=== PATIENT | female | born 1945 | race African-American/Black ===

== ENCOUNTER 2016-08-30 12:52 | Inpatient (IN) | payer OTHER, BC ==
[2016-08-30] MEDS ORDERED: ASPIRIN 81 MG CHEWABLE TABLETS PO ONE (13:20)
[2016-08-30] MEDS ORDERED: ASPIRIN 81 MG CHEWABLE TABLETS ONE (13:43)
--- NOTE | 2016-08-30 13:51 | PDOC ---
[id number] No Limitations - History of Present Illness Initial Comments: 08/30/16 13:52 The patient is a 70 year old female, with a significant past medical history of HTN and DM, who presents to the emergency department with intermittent chest pain and constant SOB for 10 days She ranks her pain a 5/10 in pain intensity. She reports her SOB is often provoked when she walks and exerts any activity. She has reports also having RLE pain when she walks or exerts herself. She denies recent fevers, chills, headache or dizziness. She denies recent nausea, vomit, diarrhea or constipation. She denies recent dysuria, frequency, urgency or hematuria. Allergies: NKA Past surgical history: Noncontributory Social history: Nonsmoker. Denies EtOH use and recreational drug use. Primary Care Physician: <Rogeilo Lanier - Last Filed: 08/30/16 13:52> <Yanna Soriano - Last Filed: 09/01/16 11:03> - General Chief Complaint: Chest Pain Stated Complaint: CHEST PAIN, SOB Time Seen by Provider: 08/30/16 13:25 Past History <Rogelio Lanier - Last Filed: 08/30/16 13:52> - Past Medical History Anemia: No Asthma: No Cancer: Yes (LEFT BREAST) Cardiac Disorders: No CVA: No COPD: No CHF: No Dementia: No Diabetes: Yes (type II) GI Disorders: No Disorders: No HTN: Yes Hypercholesterolemia: No Liver Disease: No Seizures: No Thyroid Disease: No - Surgical History Abdominal Surgery: No Appendectomy: No Cardiac Surgery: No Cholecystectomy: No Lung Surgery: No Neurologic Surgery: No Orthopedic Surgery: No - Psycho/Social/Smoking Cessation Hx Anxiety: No Suicidal Ideation: No Smoking Status: No Smoking History: Never smoked Number of Cigarettes Smoked Daily: 0 Hx Alcohol Use: No Drug/Substance Use Hx: No Substance Use Type: None Hx Substance Use Treatment: No <Yanna Soriano - Last Filed: 09/01/16 11:03> - Past Medical History Allergies/Adverse Reactions: Allergies Allergy/AdvReac Type Severity Reaction Status Date / Time No Known Allergies Allergy Verified 08/30/16 13:01 Home Medications: Ambulatory Orders Amlodipine Besylate 10 mg PO DAILY 08/30/16 Insulin Lispro Protamin/Lispro [Humalog Mix 75-25 Kwikpen] 40 unit SQ BIDAC 07/14 Losartan/Hydrochlorothiazide [Losartan-Hctz 100-25 mg Tab] 1 each PO DAILY 08/30 Atorvastatin Ca [Lipitor] 10 mg PO HS tablet 09/01/16 Review of Systems - Review of Systems Able to Perform ROS?: Yes Comments:: 08/30/16 13:52 GENERAL/CONSTITUTIONAL: No fever or chills. No weakness. HEAD, EYES, EARS, NOSE AND THROAT: No change in vision. No ear pain or discharge. No sore throat. CARDIOVASCULAR: +chest pain and shortness of breath. RESPIRATORY: No cough, wheezing, or hemoptysis. GASTROINTESTINAL: No nausea, vomiting, diarrhea or constipation. GENITOURINARY: No dysuria, frequency, or change in urination. MUSCULOSKELETAL: +RLE pain. No joint or muscle swelling or pain. No neck or back pain. SKIN: No rash NEUROLOGIC: No headache, vertigo, loss of consciousness, or change in strength/ sensation. ENDOCRINE: No increased thirst. No abnormal weight change. HEMATOLOGIC/LYMPHATIC: No anemia, easy bleeding, or history of blood clots. ALLERGIC/IMMUNOLOGIC: No hives or skin allergy. <Rogelio Lanier - Last Filed: 08/30/16 13:52> *Physical Exam - Vital Signs Last Vital Signs Temp Pulse Resp BP Pulse Ox 98.1 F 92 H 19 151/71 100 08/30/16 13:01 08/30/16 13:01 08/30/16 13:01 08/30/16 13:01 08/30/16 13:01 - Physical Exam Comments: 08/30/16 13:53 GENERAL: Awake, alert, and fully oriented, in no acute distress HEAD: No signs of trauma EYES: PERRLA, EOMI, sclera anicteric, conjunctiva clear ENT: Auricles normal inspection, hearing grossly normal, nares patent, oropharynx clear without exudates. Moist mucosa NECK: Normal ROM, supple, no lymphadenopathy, JVD, or masses LUNGS: Breath sounds equal, clear to auscultation bilaterally. No wheezes, and no crackles HEART: Regular rate and rhythm, normal S1 and S2, no murmurs, rubs or gallops ABDOMEN: Soft, nontender, normoactive bowel sounds. No guarding, no rebound. No masses EXTREMITIES: Normal range of motion, no edema. No clubbing or cyanosis. No cords, erythema, or tenderness NEUROLOGICAL: Cranial nerves II through XII grossly intact. Normal speech, normal gait SKIN: Warm, Dry, normal turgor, no rashes or lesions noted. <Rogelio Lanier - Last Filed: 08/30/16 13:52> - Vital Signs Last Vital Signs Temp Pulse Resp BP Pulse Ox 98.1 F 92 H 19 151/71 100 08/30/16 13:01 08/30/16 13:01 08/30/16 13:01 08/30/16 13:01 08/30/16 13:01 <Yanna Soriano - Last Filed: 09/01/16 11:03> ED Treatment Course - LABORATORY CBC & Chemistry Diagram: 08/31/16 13:25 08/31/16 13:25 <Yanna Soriano - Last Filed: 09/01/16 11:03> Medical Decision Making - Medical Decision Making Case d/w Dr. Cruz. Patient with RLE tenderness. I will obtain duplex to r /o DVT. With the SOB, PE is also a possibility. D-dimer is elevated. Will admit for further workup. <Yanna Soriano - Last Filed: 09/01/16 11:03> *DC/Admit/Observation/Transfer - Attestations Scribe Attestion: 08/30/16 13:53 Documentation prepared by Rogelio Lanier, acting as medical customer service representative for Yanna Soriano MD. <Rogelio Lanier - Last Filed: 08/30/16 13:52> - Discharge Dispostion Admit: Yes <Yanna Soriano - Last Filed: 09/01/16 11:03> Diagnosis at time of Disposition: Shortness of breath - Discharge Dispostion Condition at time of disposition: Stable - Referrals
[2016-08-30 14:06] LABS: BASOPHIL 0.9 % (0-2.0); EOSINOPHIL 2.8 % (0-4.5); MCHC 32.8 g/dl (32.0-36.0); MEAN CELL VOLUME 82.2 fl (80-96); MEAN PLT VOLUME 9.3 fl (7.5-11.1); NEUTROPHILS 51.5 % (42.8-82.8); PLATELET COUNT 217 K/MM3 (134-434); RDW 13.8 % (11.6-15.6); WHITE BLOOD COUNT 5.5 K/mm3 (4.0-10.0)
[2016-08-30 14:32] LABS: INR 1.22 (0.82-1.09); PROTHROMBIN TIME (PATIENT) 13.5 SEC (9.98-11.88)
[2016-08-30 14:43] LABS: ALBUMIN 4.2 g/dl (3.4-5.0); ANION GAP 9 (8-16); BILIRUBIN,TOTAL 0.3 mg/dL (0.2-1.0); CALCIUM 10.5 mg/dL (8.5-10.1); CO2 30 mmol/L (21-32); CREATININE 1.1 mg/dL (0.55-1.02); GLUCOSE,RANDOM 81 mg/dL (74-106); SGOT/AST 11 U/L (15-37); SGPT/ALT 20 U/L (12-78); TOT PROT 7.8 g/dl (6.4-8.2)
[2016-08-30 14:46] LABS: ALK PHOS 83 U/L (45-117); TROPONIN I < 0.02 ng/ml (0.00-0.05)
[2016-08-30] MEDS ORDERED: POTASSIUM CHLORIDE TABS 20 MEQ TABLET.ER (FP) PO ONE (15:45)
[2016-08-30] MEDS ORDERED: POTASSIUM CHLORIDE TABS 10 MEQ TABLET.ER (FP) ONE (15:47)
[2016-08-30] MEDS ORDERED: SODIUM CHLORIDE 1,000 ML IV STA (15:58)
--- NOTE | 2016-08-30 16:11 | CON.CARD ---
Consult Consult Specialty:: Cardiology Referred by:: Dr. Cruz Reason for Consultation:: Chest pain, sob - History of Present Illness Chief Complaint: chest pain, sob History of Present Illness: 70 year old woman with a history of HTN, DMII, HLD, breast CA, with c/o 10d history of chest pain and sob. Pt. states that for the past 10 days she has noted sob and substernal, sharp chest pain that occurs mainly with walking and with singing in the choir and with deep inspiration. She also notes RLE calf pain over the same period. Pt seen and examined in the ER in nad. Currently feeling well while sitting at rest. no current chest pain or sob. No LE edema. No lightheadedness dizziness, syncope, near syncope. No pnd or orthopnea. - History Source History Provided By: Patient, Family Member, Medical Record Limitations to Obtaining History: No Limitations - Past Medical History Cardio/Vascular: Yes: HTN, Hyperlipdemia Heme/Onc: Yes: Cancer Endocrine: Yes: Diabetes Mellitus - Alcohol/Substance Use Hx Alcohol Use: No - Smoking History Smoking history: Never smoked Aproximately how many cigarettes per day: 0 - Social History Usual Living Arrangement: With Spouse ADL: Independent History of Recent Travel: No Home Medications - Allergies Allergies/Adverse Reactions: Allergies Allergy/AdvReac Type Severity Reaction Status Date / Time No Known Allergies Allergy Verified 08/30/16 13:01 - Home Medications Home Medications: Ambulatory Orders Amlodipine Besylate 10 mg PO DAILY 08/30/16 Insulin Lispro Protamin/Lispro [Humalog Mix 75-25 Kwikpen] 0 unit SQ BID Losartan/Hydrochlorothiazide [Losartan-Hctz 100-25 mg Tab] 1 each PO DAILY 08/30 Family Disease History - Family Disease History Family History: Denies Review of Systems - Review of Systems Constitutional: denies: No Symptoms, Chills, Diaphoresis, Fever, Lethargy, Loss of Appetite, Malaise, Night Sweats, Unintentional Wgt. Loss, Weakness, Other Eyes: denies: No Symptoms, Blind Spots, Blurred Vision, Double Vision, Eye Pain , Floaters, Photophobia, Recent Change in Vision, Other HENT: denies: No Symptoms, Difficult Swallowing, Ear Discharge, Ear Pain, Epistaxis, Gingival Bleeding, Hearing Loss, Mouth Swelling, Nasal Congestion, Ocular Prosthesis, Throat Pain, Toothache, Ringing in Ears, Other Neck: denies: No Symptoms, Decreased ROM, Lumps, Pain on Movement, Stiffness, Swollen Glands, Tenderness, Other Cardiovascular: reports: Chest Pain, Shortness of Breath. denies: No Symptoms, Edema, Palpitations, Other Respiratory: reports: Exercise Intolerance, SOB, SOB on Exertion. denies: No Symptoms, Cough, Hemoptysis, Orthopnea, PND, Snoring, Wheezing, Other Gastrointestinal: denies: No Symptoms, Abdominal Pain, Bloating, Constipation, Diarrhea, Dysphagia, Indigestion, Melena, Nausea, Rectal Bleeding, Vomiting, Vomiting Blood, Other Genitourinary: denies: No Symptoms, Burning, Discharge, Dysuria, Flank Pain, Frequency, Hematuria, Incontinence, Lesions, Menses, Pain, Testicular Mass, Testicular Pain, Testicular Swelling, Urgency, Vaginal Bleeding, Other Breasts: denies: No Symptoms Reported, See HPI, Breast Implants, Discharge from Nipple, Lumps, Pain, Skin Changes, Other Musculoskeletal: reports: Extremity Pain. denies: No Symptoms, Back Pain, Crepitus, Decreased ROM, Joint Pain, Joint Swelling, Muscle Pain, Muscle Cramps , Muscle Weakness, Other Integumentary: denies: No Symptoms, Blister, Bruising, Change in Color, Eczema, Erythema, Incision, Lesions, Lump, Pallor, Pruritis, Rash, Wound, Other Neurological: denies: No Symptoms, Change in LOC, Change in Speech, Confusion, Dizziness, Headache, Incoordination, Numbness, Parasthesia, Pre-Existing Deficit , Seizure, Syncope, Tremors, Unsteady Gait, Weakness, Other Endocrine: denies: No Symptoms, Excessive Sweating, Flushing, Increased Hunger, Increased Thirst, Intolerance to Cold, Intolerance to Heat, Unexplained Weight Gain, Unexplained Weight Loss, Other Hematology/Lymphatic: denies: No Symptoms, Easily Bruised, Excessive Bleeding, Swollen Glands, Other Psychiatric: denies: No Symptoms, Altered Sleep Pattern, Anxiety, Depression, Hallucinations, Panic, Paranoia, Suicidal, Other - Risk Factors Known Risk Factors: Yes: Diabetes Mellitus, Hypercholesterolemia, Hypertension Vital Signs: Vital Signs Temperature 98.1 F 08/30/16 13:01 Pulse Rate 69 08/30/16 15:44 Respiratory Rate 18 08/30/16 15:44 Blood Pressure 126/59 08/30/16 15:44 O2 Sat by Pulse Oximetry (%) 98 08/30/16 15:44 Constitutional: Yes: Well Nourished, No Distress, Calm Eyes: Yes: WNL, Conjunctiva Clear, EOM Intact, PERRL HENT: Yes: WNL, Atraumatic, Normocephalic Neck: Yes: WNL, Supple, Trachea Midline Respiratory: Yes: WNL, Regular, CTA Bilaterally. No: Rales, Rhonchi, Wheezes Gastrointestinal: Yes: WNL, Normal Bowel Sounds, Soft. No: Distention, Tenderness Renal/: Yes: WNL Cardiovascular: Yes: WNL, Regular Rate and Rhythm. No: Bradycardia, Tachycardia , Pulse Irregular, Gallop, Rub, Varicosities JVD: No Carotid Bruit: No PMI: Non-Displaced Heart Sounds: Yes: S1, S2. No: Split S2, S3, S4, Clicks, Gallop, Rub, Bruit Murmur: No: Systolic Murmur, Diastolic Murmur Musculoskeletal: Yes: WNL Extremities: Yes: WNL Edema: No Peripheral Pulses WNL: Yes Peripheral Pulses: 2+ Left Doralis Pedis, 2+ Right Dorsalis Pedis Integumentary: Yes: WNL Neurological: Yes: WNL, Alert, Oriented, Cran Nerves II-XII Intact ...Motor Strength: WNL Psychiatric: Yes: WNL, Alert, Oriented - Other Data Labs, Other Data: INR, PTT INR 1.22 (0.82-1.09) H 08/30/16 13:04 ekg- nsr 87bpm, septal infarct, poor R progression, nonspecific ST abnl Echo: Pending Imaging - Results Chest X-ray: Report Reviewed, Image Reviewed EKG: Report Reviewed, Image Reviewed Other: Report Reviewed, Image Reviewed Problem List - Problems (1) Shortness of breath Code(s): R06.02 - SHORTNESS OF BREATH (2) Chest pain Code(s): R07.9 - CHEST PAIN, UNSPECIFIED (3) HTN (hypertension) Code(s): I10 - ESSENTIAL (PRIMARY) HYPERTENSION (4) HLD (hyperlipidemia) Code(s): E78.5 - HYPERLIPIDEMIA, UNSPECIFIED (5) Diabetes mellitus type 2 with complications Code(s): E11.8 - TYPE 2 DIABETES MELLITUS WITH UNSPECIFIED COMPLICATIONS Assessment/Plan 70 year old woman with a history of HTN, DMII, HLD, breast CA, with c/o 10d history of chest pain and sob. Pt. states that for the past 10 days she has noted sob and substernal, sharp chest pain that occurs mainly with walking and with singing in the choir and with deep inspiration. She also notes RLE calf pain over the same period. Chest pain/SOB-with multiple cardiac risk factors, abnormal EKG -r/o ACS, cardiac enzymes wnl x 1, check serial cardiac enzymes and ekgs -telemetry monitoring -CTA chest to rule out PE and doppler LE to rule out DVT to be done today -if no DVT/PE will tentatively plan for nuclear stress test tomorrow provided cardiac enzymes remain wnl -will have low threshold for cardiac catheterization depending on clinical course overnight -plan for echo tomorrow to evaluate LV/RV function and valvular function -start ASA 81mg daily and Plavix -start statin -hold off on heparin for now unless DVT/PE found or if cardiac enzymes trend up HTN-adequately controlled currently -cont losartan/hctz and amlodipine HLD -f/up fasting lipids -statin
--- NOTE | 2016-08-30 16:24 | HP ---
Admitting History and Physical - Admission Chief Complaint: 70 y.o F was admitted to [facility] with anterior CP, EXErtional and resting dyspnea and generalized weakness 1-1 1/2 weeks duration. History of Present Illness: DM type 2 not well controlled HTN MNG HLD OA Breast mass/biopsy History Source: Patient, Medical Record Limitations to Obtaining History: No Limitations - Past Medical History [employer]: Yes: Peripheral Neuropathy Cardiovascular: Yes: HTN, Hyperlipdemia. No: AFIB, CHF, Deep Vein Thrombosis Pulmonary: No: Asthma, Bronchitis, O2 Dependent, Pulmonary Fibrosis, Sleep Apnea Gastrointestinal: No: Ascites, Cancer, Constipation, GI Bleed, Peptic Ulcer Disease Hepatobiliary: No: Cirrhosis, Cholelithiasis, Cholecystitis Renal/: No: Renal Failure, Renal Inusuff, Cancer Heme/Onc: Yes: Cancer Infectious Disease: No: AIDS, C-Diff, Herpes Zoster, HIV, MRSA, STD's, Tuberculosis, VREF, Other Psych: No: Addictions, Anxiety, Bipolar, Depression, Panic, Psychosis, Schizophrenia, Other Musculoskeletal: No: Bursitis, Chronic low back pain, Hemiparesis, Hemiplegia, Osteoarthritis, Paraplegia, Other Rheumatology: No: Fibromyalgia, Gout, Lupus, Rheumatoid Arthritis, Sarcoidosis, Vasculitis, Other Endocrine: Yes: Diabetes Mellitus. No: Sevier's Disease, Pl[place]'s Disease, Diabetes Insipidus, Hyperparathyroidism, Hyperthyroidism, Hypothyroidism, Osteopenia, SIADH, Other Dermatology: No: Basal Cell, Cellulitis, Eczema, Melanoma, Psoriasis, Squamous Cell, Other - Past Surgical History Past Surgical History: Yes: Breast Biopsy. No: AAA Repair, AICD, AV Fistula/ Graft, Bypass - Smoking History Smoking history: Never smoked Aproximately how many cigarettes per day: 0 - Alcohol/Substance Use Hx Alcohol Use: No - Social History ADL: Independent History of Recent Travel: No Home Medications - Allergies Allergies/Adverse Reactions: Allergies Allergy/AdvReac Type Severity Reaction Status Date / Time No Known Allergies Allergy Verified 08/30/16 13:01 - Home Medications Home Medications: Ambulatory Orders Amlodipine Besylate 10 mg PO DAILY 08/30/16 Insulin Lispro Protamin/Lispro [Humalog Mix 75-25 Kwikpen] 0 unit SQ BID Losartan/Hydrochlorothiazide [Losartan-Hctz 100-25 mg Tab] 1 each PO DAILY 08/30 Family Disease History - Family Disease History Family Disease History: Diabetes: Sister, Heart Disease: Sister Review of Systems - Review of Systems Constitutional: reports: Weakness. denies: Fever, Lethargy, Unintentional Wgt. Loss Eyes: denies: No Symptoms, Blind Spots, Photophobia HENT: denies: Difficult Swallowing, Ear Discharge, Gingival Bleeding Neck: denies: Decreased ROM, Lumps, Pain on Movement, Stiffness Cardiovascular: reports: Chest Pain, Shortness of Breath Respiratory: reports: Exercise Intolerance, SOB, SOB on Exertion. denies: Wheezing Gastrointestinal: denies: Abdominal Pain, Bloating, Indigestion Genitourinary: denies: Burning, Discharge Musculoskeletal: reports: Other (Big toe pain after injury). denies: Back Pain Neurological: reports: Confusion. denies: Change in LOC, Change in Speech, Seizure, Syncope, Tremors, Unsteady Gait Hematology/Lymphatic: reports: No Symptoms Psychiatric: reports: No Symptoms Physical Examination Vital Signs: Vital Signs Temperature 98.1 F 08/30/16 13:01 Pulse Rate 69 08/30/16 15:44 Respiratory Rate 18 08/30/16 15:44 Blood Pressure 126/59 08/30/16 15:44 O2 Sat by Pulse Oximetry (%) 98 08/30/16 15:44 Constitutional: Yes: Anxious, Mild Distress Eyes: Yes: Conjunctiva Clear, EOM Intact HENT: Yes: Atraumatic, Normocephalic. No: Drooling, Epistaxis Neck: Yes: Supple, Trachea Midline Respiratory: Yes: Regular, CTA Bilaterally. No: Accessory Muscle Use, Bradypnea Gastrointestinal: Yes: Normal Bowel Sounds, Soft. No: Abdomen, Obese, Ascites, Distention, Palpable Mass, Pulsatile Mass, Splenomegaly, Tenderness, Rebound, Vomiting ...Rectal Exam: Yes: Deferred Renal/: No: Anuria, Bladder Distention, CVA Tenderness - Left Musculoskeletal: No: Back Pain, Joint Stiffness, Joint Swelling Extremities: No: Amputation, Calf Tenderness, Cold, Cyanosis Edema: No Peripheral Pulses WNL: Yes Integumentary: Yes: WNL Neurological: Yes: Alert, Oriented, Cran Nerves II-XII Intact. No: Aphasia, Weakness ...Motor Strength: WNL Psychiatric: Yes: Alert, Oriented. No: Agitated, Suicidal Ideation Labs: Laboratory Results - last 24 hr 08/30/16 08/30/16 08/30/16 13:04 13:04 13:04 WBC 5.5 D RBC 4.79 Hgb 12.9 Hct 39.4 MCV 82.2 MCHC 32.8 RDW 13.8 Plt Count 217 MPV 9.3 Neutrophils % 51.5 Lymphocytes % 37.3 Monocytes % 7.5 Eosinophils % 2.8 Basophils % 0.9 INR 1.22 H D-Dimer Sodium 140 Potassium 3.1 L Chloride 101 Carbon Dioxide 30 Anion Gap 9 BUN 27 H Creatinine 1.1 H Creat Clearance w eGFR 49.25 Random Glucose 81 D Calcium 10.5 H Magnesium 2.0 Total Bilirubin 0.3 AST 11 L ALT 20 Alkaline Phosphatase 83 D Creatine Kinase 150 CK-MB (CK-2) 2.442 Troponin I < 0.02 Total Protein 7.8 Albumin 4.2 08/30/16 13:59 WBC RBC Hgb Hct MCV MCHC RDW Plt Count MPV Neutrophils % Lymphocytes % Monocytes % Eosinophils % Basophils % INR D-Dimer 388 H Sodium Potassium Chloride Carbon Dioxide Anion Gap BUN Creatinine Creat Clearance w eGFR Random Glucose Calcium Magnesium Total Bilirubin AST ALT Alkaline Phosphatase Creatine Kinase CK-MB (CK-2) Troponin I Total Protein Albumin Imaging - Results Chest X-ray: Report Reviewed Problem List - Problems (1) Chest pain Assessment/Plan: ATTILA. EST if enzymes negative. Cardiology Code(s): R07.9 - CHEST PAIN, UNSPECIFIED Qualifiers: Ischemic chest pain type: other angina pectoris type (2) Diabetes mellitus type 2 with complications Assessment/Plan: Hold Metformin due to CT angio. Lakhwinder NovologJeannette Code(s): E11.8 - TYPE 2 DIABETES MELLITUS WITH UNSPECIFIED COMPLICATIONS (3) HLD (hyperlipidemia) Assessment/Plan: Re-start Lipitor and observe Code(s): E78.5 - HYPERLIPIDEMIA, UNSPECIFIED Qualifiers: Hyperlipidemia type: mixed hyperlipidemia Qualified Code(s): E78.2 - Mixed hyperlipidemia (4) HTN (hypertension) Code(s): I10 - ESSENTIAL (PRIMARY) HYPERTENSION Qualifiers: Hypertension type: essential hypertension Qualified Code(s): I10 - Essential (primary) hypertension (5) Shortness of breath Assessment/Plan: R/O PE Elevated D-Dimers CT angio LE venous Dupplex Code(s): R06.02 - SHORTNESS OF BREATH (6) Hypokalemia due to loss of potassium Assessment/Plan: Relete K and follow K Code(s): E87.6 - HYPOKALEMIA
[2016-08-30 18:10] LABS: TROPONIN I < 0.02 ng/ml (0.00-0.05)
[2016-08-30] MEDS: INSULIN SLIDING SCALE (NOVOLOG) 1 VIAL SQ SCH ×2 (20:50→21:16)
[2016-08-30] MEDS: INSULIN DETEMIR 100 UNITS/ML MDV SQ SCH (21:00)
[2016-08-30] MEDS: ATORVASTATIN CA 10 MG TABLET (FP) PO SCH (21:03)
[2016-08-30 22:40] LABS: TROPONIN I < 0.02 ng/ml (0.00-0.05)
[2016-08-30 23:17] VITALS: BMI 24.0
[2016-08-31] MEDS: INSULIN SLIDING SCALE (NOVOLOG) 1 VIAL SQ SCH ×4 (06:02→21:38)
[2016-08-31] MEDS: sitaGLIPtin PHOSPHATE 50 MG TABLET PO SCH (06:02)
--- NOTE | 2016-08-31 08:00 | PN ---
Progress Note (short form) - Note Progress Note: No chest pain now. Comfortable in bed. ECHO in progress-noted. CT angio chest-no PE LE venous dupplex-no DVT Vital Signs Temp 98.2 F 08/31/16 06:00 Pulse 70 08/31/16 06:00 Resp 18 08/31/16 06:00 BP 121/68 08/31/16 06:00 Pulse Ox 98 08/30/16 20:05 Intake & Output 08/30/16 08/30/16 08/31/16 11:59 23:59 11:59 Intake Total 1130 Balance 1130 Weight 144 lb 8 oz Intake: IV 1010 Normal Saline - 1,000 ml 1000 @ 1000 mls/hr IV ASDIR STA Rx#:[id number] rac 18 08/30/2016 10 Oral 120 Other: Voiding Method Toilet # Unmeasured Voids Void 2 1 Height 5 ft 5 in Body Mass Index (BMI) 24.0 Weight Measurement Method Standing Scale Weight Measurement Method Est/Stated by Patient Awake, alert, NAD Neck-supple, no JVD, no bruits Lungs are clear. Heart S1S2 regular- no RMG Abdomen soft, nt, no HSM Ext-no CCE Laboratory Results - last 24 hr 08/30/16 08/30/16 08/30/16 13:04 13:04 13:04 WBC 5.5 D RBC 4.79 Hgb 12.9 Hct 39.4 MCV 82.2 MCHC 32.8 RDW 13.8 Plt Count 217 MPV 9.3 Neutrophils % 51.5 Lymphocytes % 37.3 Monocytes % 7.5 Eosinophils % 2.8 Basophils % 0.9 INR 1.22 H D-Dimer Sodium 140 Potassium 3.1 L Chloride 101 Carbon Dioxide 30 Anion Gap 9 BUN 27 H Creatinine 1.1 H Creat Clearance w eGFR 49.25 POC Glucometer Random Glucose 81 D Calcium 10.5 H Magnesium 2.0 Total Bilirubin 0.3 AST 11 L ALT 20 Alkaline Phosphatase 83 D Creatine Kinase 150 CK-MB (CK-2) 2.442 Troponin I < 0.02 B-Natriuretic Peptide Total Protein 7.8 Albumin 4.2 Vitamin B12 08/30/16 08/30/16 08/30/16 13:59 16:55 20:57 WBC RBC Hgb Hct MCV MCHC RDW Plt Count MPV Neutrophils % Lymphocytes % Monocytes % Eosinophils % Basophils % INR D-Dimer 388 H Sodium Potassium Chloride Carbon Dioxide Anion Gap BUN Creatinine Creat Clearance w eGFR POC Glucometer 130 Random Glucose Calcium Magnesium Total Bilirubin AST ALT Alkaline Phosphatase Creatine Kinase 121 CK-MB (CK-2) Troponin I < 0.02 B-Natriuretic Peptide 22.98 Total Protein Albumin Vitamin B12 909 08/30/16 08/31/16 21:30 05:26 WBC RBC Hgb Hct MCV MCHC RDW Plt Count MPV Neutrophils % Lymphocytes % Monocytes % Eosinophils % Basophils % INR D-Dimer Sodium Potassium Chloride Carbon Dioxide Anion Gap BUN Creatinine Creat Clearance w eGFR POC Glucometer 82 Random Glucose Calcium Magnesium Total Bilirubin AST ALT Alkaline Phosphatase Creatine Kinase 139 CK-MB (CK-2) Troponin I < 0.02 B-Natriuretic Peptide Total Protein Albumin Vitamin B12 Current Medications Generic Name Dose Route Start Last Admin Trade Name Freq PRN Reason Stop Dose Admin Amlodipine Besylate 10 mg 08/31/16 10:00 Norvasc - PO DAILY [facility] Aspirin 81 mg 08/31/16 10:00 Asa - PO DAILY [facility] Atorvastatin Calcium 10 mg 08/30/16 22:00 08/30/16 21:03 Lipitor - PO 10 mg HS [facility] Administration Clopidogrel Bisulfate 75 mg 08/31/16 10:00 Plavix - PO DAILY [facility] HCTZ/Losartan Potassium 2 tab 08/31/16 10:00 Hyzaar - PO DAILY [facility] Insulin Aspart 1 vial 08/30/16 16:30 08/31/16 06:02 Novolog Vial Sliding Scale - SQ Not Given ACHS [facility] Protocol Insulin Detemir 40 units 08/30/16 22:00 08/30/16 21:00 Levemir Vial SQ Not Given HS [facility] Metoprolol Succinate 25 mg 08/31/16 10:00 Toprol Xl - PO DAILY [facility] Potassium Chloride 20 meq 08/31/16 10:00 K-Dur - PO DAILY [facility] Sitagliptin Phosphate 50 mg 08/31/16 07:00 08/31/16 06:02 Januvia - PO Not Given DAILY@0700 [facility] Current Active Problems Problem Status Diagnosed Chest pain Acute Diabetes mellitus type 2 with complications Acute HLD (hyperlipidemia) Acute HTN (hypertension) Acute Hypokalemia due to loss of potassium Acute Shortness of breath Acute Plan Follow lytes today For EST today Continue ASA/Plavix/BAB/Statins. Telemetry monitoring Problem List - Problems (1) Chest pain Code(s): R07.9 - CHEST PAIN, UNSPECIFIED Qualifiers: Ischemic chest pain type: other angina pectoris type (2) Diabetes mellitus type 2 with complications Code(s): E11.8 - TYPE 2 DIABETES MELLITUS WITH UNSPECIFIED COMPLICATIONS (3) HLD (hyperlipidemia) Code(s): E78.5 - HYPERLIPIDEMIA, UNSPECIFIED Qualifiers: Hyperlipidemia type: mixed hyperlipidemia Qualified Code(s): E78.2 - Mixed hyperlipidemia (4) HTN (hypertension) Code(s): I10 - ESSENTIAL (PRIMARY) HYPERTENSION Qualifiers: Hypertension type: essential hypertension Qualified Code(s): I10 - Essential (primary) hypertension (5) Shortness of breath Code(s): R06.02 - SHORTNESS OF BREATH (6) Hypokalemia due to loss of potassium Code(s): E87.6 - HYPOKALEMIA
[2016-08-31 08:05] LABS: TROPONIN I < 0.02 ng/ml (0.00-0.05)
[2016-08-31] MEDS: ASPIRIN 81 MG CHEWABLE TABLETS PO SCH ×2 (10:38→15:46)
[2016-08-31] MEDS: CLOPIDOGREL BISULFATE 75 MG TABLET (FP) PO SCH ×2 (10:39→15:46)
[2016-08-31] MEDS: amLODIPine BESYLATE 10 MG TABLET (FP) PO SCH ×2 (10:39→15:46)
[2016-08-31] MEDS: METOPROLOL SUCCINATE 25 MG TAB.SR.24H (FP) PO SCH ×2 (10:39→15:46)
[2016-08-31] MEDS: LOSARTAN 50MG/HCTZ 12.5MG 1 TAB (FP) PO SCH (10:39)
[2016-08-31] MEDS: POTASSIUM CHLORIDE TABS 10 MEQ TABLET.ER (FP) PO SCH ×2 (10:39→15:46)
--- NOTE | 2016-08-31 10:58 | PN ---
Progress Note, Physician History of Present Illness: seen and examined today in cardiology dept. awaiting stress test. states she is feeling better but still having intermittent chest pain and sob. no overnight events. no new complaints. - Current Medication List Current Medications: Active Medications Amlodipine Besylate (Norvasc -) 10 mg PO DAILY [facility] Last Admin: 08/31/16 10:39 Dose: Not Given Aspirin (Asa -) 81 mg PO DAILY [facility] Last Admin: 08/31/16 10:38 Dose: Not Given Atorvastatin Calcium (Lipitor -) 10 mg PO HS [facility] Last Admin: 08/30/16 21:03 Dose: 10 mg Clopidogrel Bisulfate (Plavix -) 75 mg PO DAILY [facility] Last Admin: 08/31/16 10:39 Dose: Not Given HCTZ/Losartan Potassium (Hyzaar -) 2 tab PO DAILY [facility] Last Admin: 08/31/16 10:39 Dose: Not Given Insulin Aspart (Novolog Vial Sliding Scale -) 1 vial SQ [facility] PRN Reason: Protocol Last Admin: 08/31/16 06:02 Dose: Not Given Insulin Detemir (Levemir Vial) 40 units SQ [facility] Last Admin: 08/30/16 21:00 Dose: Not Given Metoprolol Succinate (Toprol Xl -) 25 mg PO DAILY [facility] Last Admin: 08/31/16 10:39 Dose: Not Given Potassium Chloride (K-Dur -) 20 meq PO DAILY [facility] Last Admin: 08/31/16 10:39 Dose: Not Given Sitagliptin Phosphate (Januvia -) 50 mg PO DAILY@0700 [facility] Last Admin: 08/31/16 06:02 Dose: Not Given - Objective Vital Signs: Vital Signs Temperature 98.2 F 08/31/16 06:00 Pulse Rate 70 08/31/16 06:00 Respiratory Rate 18 08/31/16 06:00 Blood Pressure 121/68 08/31/16 06:00 O2 Sat by Pulse Oximetry (%) 98 08/30/16 20:05 Constitutional: Yes: Well Nourished, No Distress, Calm Eyes: Yes: WNL, Conjunctiva Clear, EOM Intact, PERRL HENT: Yes: WNL, Atraumatic, Normocephalic Neck: Yes: WNL, Supple, Trachea Midline Cardiovascular: Yes: WNL, Regular Rate and Rhythm. No: Bradycardia, Tachycardia Respiratory: Yes: WNL, Regular, CTA Bilaterally. No: Rales, Rhonchi, Wheezes Gastrointestinal: Yes: WNL, Normal Bowel Sounds, Soft. No: Distention, Tenderness Musculoskeletal: Yes: WNL Extremities: Yes: WNL Edema: No Peripheral Pulses WNL: Yes Peripheral Pulses: Left Doralis Pedis: 2+, Right Dorsalis Pedis: 2+ Integumentary: Yes: WNL Neurological: Yes: Alert, Oriented, Cran Nerves II-XII Intact ...Motor Strength: WNL Psychiatric: Yes: WNL, Alert, Oriented Labs: INR, PTT INR 1.22 (0.82-1.09) H 08/30/16 13:04 - ....Imaging Chest X-ray: Report Reviewed, Image Reviewed EKG: Report Reviewed, Image Reviewed Other: Report Reviewed, Image Reviewed (tele-no events) Problem List - Problems (1) Shortness of breath Code(s): R06.02 - SHORTNESS OF BREATH (2) Chest pain Code(s): R07.9 - CHEST PAIN, UNSPECIFIED Qualifiers: Ischemic chest pain type: other angina pectoris type (3) HTN (hypertension) Code(s): I10 - ESSENTIAL (PRIMARY) HYPERTENSION Qualifiers: Hypertension type: essential hypertension Qualified Code(s): I10 - Essential (primary) hypertension (4) HLD (hyperlipidemia) Code(s): E78.5 - HYPERLIPIDEMIA, UNSPECIFIED Qualifiers: Hyperlipidemia type: mixed hyperlipidemia Qualified Code(s): E78.2 - Mixed hyperlipidemia (5) Diabetes mellitus type 2 with complications Code(s): E11.8 - TYPE 2 DIABETES MELLITUS WITH UNSPECIFIED COMPLICATIONS Assessment/Plan 70 year old woman with a history of HTN, DMII, HLD, breast CA, with c/o 10d history of chest pain and sob. Pt. states that for the past 10 days she has noted sob and substernal, sharp chest pain that occurs mainly with walking and with singing in the choir and with deep inspiration. She also notes RLE calf pain over the same period. Chest pain/SOB-with multiple cardiac risk factors, abnormal EKG -CTA chest showed no evidence of PE -Doppler showed no DVT -cardiac enzymes all wnl -tele showed no sig arrhythmias -nuclear stress test today and echo -will have low threshold for cardiac cath -cont ASA 81mg daily and Plavix -cont statin HTN-adequately controlled currently -cont losartan/hctz and amlodipine and toprol HLD -f/up fasting lipids -cont statin
[2016-08-31 14:06] LABS: BASOPHIL 0.7 % (0-2.0); EOSINOPHIL 2.3 % (0-4.5); MCHC 32.3 g/dl (32.0-36.0); MEAN CELL VOLUME 83.5 fl (80-96); MEAN PLT VOLUME 9.3 fl (7.5-11.1); NEUTROPHILS 57.7 % (42.8-82.8); PLATELET COUNT 198 K/MM3 (134-434); RDW 13.8 % (11.6-15.6)
[2016-08-31 14:33] LABS: ALBUMIN 3.7 g/dl (3.4-5.0); ANION GAP 10 (8-16); CO2 28 mmol/L (21-32); COCKROFT - GAULT 54.9355; GLUCOSE,RANDOM 250 mg/dL (74-106); MAGNESIUM 1.7 mg/dL (1.8-2.4); SGOT/AST 14 U/L (15-37); SGPT/ALT 19 U/L (12-78)
[2016-08-31 14:37] LABS: ALK PHOS 78 U/L (45-117); BILIRUBIN,TOTAL 0.5 mg/dL (0.2-1.0); CHOLESTEROL 249 mg/dL (50-200); TOT PROT 7.1 g/dl (6.4-8.2)
[2016-08-31 15:55] LABS: FREE T4 1.12 ng/dl (0.76-1.46); THYROID STIMULATING HORMONE 0.43 uIU/ml (0.358-3.74)
--- NOTE | 2016-08-31 17:22 | EKG ---
Test Reason : Blood Pressure : / mmHG Vent. Rate : 069 BPM Atrial Rate : 069 BPM P-R Int : 184 ms QRS Dur : 082 ms QT Int : 408 ms P-R-T Axes : 057 004 056 degrees QTc Int : 437 ms NORMAL SINUS RHYTHM SEPTAL INFARCT (CITED ON OR BEFORE 16-AUG-2011) ABNORMAL ECG WHEN COMPARED WITH ECG OF 30-AUG-2016 13:00, NONSPECIFIC T WAVE ABNORMALITY, IMPROVED IN LATERAL LEADS Confirmed by ANTHONY RAHMAN, MERCEDEZ ([id number]) on 08/31/2016 5:22:25 PM Referred By: ABBIE ATKINS Confirmed By:MERCEDEZ CRUZ MD
--- NOTE | 2016-08-31 17:30 | EKG ---
Test Reason : Blood Pressure : / mmHG Vent. Rate : 083 BPM Atrial Rate : 083 BPM P-R Int : 184 ms QRS Dur : 082 ms QT Int : 384 ms P-R-T Axes : 058 -03 055 degrees QTc Int : 451 ms NORMAL SINUS RHYTHM SEPTAL INFARCT (CITED ON OR BEFORE 16-AUG-2011) ABNORMAL ECG WHEN COMPARED WITH ECG OF 16-AUG-2011 20:37, NO SIGNIFICANT CHANGE WAS FOUND Confirmed by ANTHONY RAHMAN, MERCEDEZ ([id number]) on 08/31/2016 5:30:32 PM Referred By: Confirmed By:MERCEDEZ CRUZ MD
[2016-08-31] MEDS ORDERED: INSULIN (NOVOLOG) ASPART 100 UNITS/ML 10ML VIAL ONE (17:34)
[2016-08-31] MEDS: INSULIN DETEMIR 100 UNITS/ML MDV SQ SCH (21:48)
[2016-08-31] MEDS: ATORVASTATIN CA 10 MG TABLET (FP) PO SCH (21:48)
[2016-09-01] MEDS: sitaGLIPtin PHOSPHATE 50 MG TABLET PO SCH (06:55)
[2016-09-01] MEDS: INSULIN SLIDING SCALE (NOVOLOG) 1 VIAL SQ SCH (06:57)
[2016-09-01] MEDS ORDERED: INSULIN (NOVOLOG) ASPART 100 UNITS/ML 10ML VIAL ONE (07:08)
--- NOTE | 2016-09-01 09:16 | PN ---
Progress Note (short form) - Note Progress Note: EST-mild apical ischemia-reversible, EKG-old [place]-septal? CP during EST Pt was discussed with cardiology. Cardiac cath suggested. Pt is being Tx to [facility]. Noted A1C 11.9 PE awkw, alert, NAD Lungs clear. Heart S1S2 regular Abdomen soft, NT Laboratory Results - last 24 hr 08/31/16 08/31/16 08/31/16 13:25 13:25 13:25 WBC 6.0 RBC 4.63 Hgb 12.5 Hct 38.7 MCV 83.5 MCHC 32.3 RDW 13.8 Plt Count 198 MPV 9.3 Neutrophils % 57.7 Lymphocytes % 32.4 Monocytes % 6.9 Eosinophils % 2.3 Basophils % 0.7 Sodium 138 Potassium 3.9 D Chloride 100 Carbon Dioxide 28 Anion Gap 10 BUN 19 H D Creatinine 1.0 Creat Clearance w eGFR 54.97 POC Glucometer Random Glucose 250 H D Hemoglobin A1c % 11.9 H Calcium 10.0 Phosphorus 3.0 Magnesium 1.7 L Total Bilirubin 0.5 D AST 14 L D ALT 19 Alkaline Phosphatase 78 Total Protein 7.1 Albumin 3.7 Triglycerides 160 Cholesterol 249 H Total LDL Cholesterol 182 H HDL Cholesterol 50 TSH Free T4 08/31/16 08/31/16 08/31/16 13:25 17:27 21:11 WBC RBC Hgb Hct MCV MCHC RDW Plt Count MPV Neutrophils % Lymphocytes % Monocytes % Eosinophils % Basophils % Sodium Potassium Chloride Carbon Dioxide Anion Gap BUN Creatinine Creat Clearance w eGFR POC Glucometer 316 188 Random Glucose Hemoglobin A1c % Calcium Phosphorus Magnesium Total Bilirubin AST ALT Alkaline Phosphatase Total Protein Albumin Triglycerides Cholesterol Total LDL Cholesterol HDL Cholesterol TSH 0.43 Free T4 1.12 09/01/16 05:46 WBC RBC Hgb Hct MCV MCHC RDW Plt Count MPV Neutrophils % Lymphocytes % Monocytes % Eosinophils % Basophils % Sodium Potassium Chloride Carbon Dioxide Anion Gap BUN Creatinine Creat Clearance w eGFR POC Glucometer 243 Random Glucose Hemoglobin A1c % Calcium Phosphorus Magnesium Total Bilirubin AST ALT Alkaline Phosphatase Total Protein Albumin Triglycerides Cholesterol Total LDL Cholesterol HDL Cholesterol TSH Free T4 Current Active Problems Problem Status Diagnosed Chest pain Acute Diabetes mellitus type 2 with complications Acute HLD (hyperlipidemia) Acute HTN (hypertension) Acute Hypokalemia due to loss of potassium Acute Shortness of breath Acute Plan transfer for cardiac cath Will follow after d/c Problem List - Problems (1) Chest pain Code(s): R07.9 - CHEST PAIN, UNSPECIFIED Qualifiers: Ischemic chest pain type: other angina pectoris type (2) Diabetes mellitus type 2 with complications Code(s): E11.8 - TYPE 2 DIABETES MELLITUS WITH UNSPECIFIED COMPLICATIONS (3) HLD (hyperlipidemia) Code(s): E78.5 - HYPERLIPIDEMIA, UNSPECIFIED Qualifiers: Hyperlipidemia type: mixed hyperlipidemia Qualified Code(s): E78.2 - Mixed hyperlipidemia (4) HTN (hypertension) Code(s): I10 - ESSENTIAL (PRIMARY) HYPERTENSION Qualifiers: Hypertension type: essential hypertension Qualified Code(s): I10 - Essential (primary) hypertension (5) Shortness of breath Code(s): R06.02 - SHORTNESS OF BREATH (6) Hypokalemia due to loss of potassium Code(s): E87.6 - HYPOKALEMIA
--- NOTE | 2016-09-01 09:17 | DS ---
Physical Examination Vital Signs: Vital Signs Temperature 98.0 F 09/01/16 06:00 Pulse Rate 62 09/01/16 06:00 Respiratory Rate 18 09/01/16 06:00 Blood Pressure 128/70 09/01/16 06:00 O2 Sat by Pulse Oximetry (%) 100 08/31/16 21:00 Constitutional: Yes: No Distress, Anxious Eyes: Yes: Conjunctiva Clear, EOM Intact HENT: Yes: Atraumatic, Normocephalic Neck: Yes: Supple, Trachea Midline Cardiovascular: Yes: Regular Rate and Rhythm Respiratory: Yes: Regular, CTA Bilaterally Gastrointestinal: Yes: Normal Bowel Sounds, Soft. No: Abdomen, Obese ...Rectal Exam: Yes: Deferred Renal/: No: Anuria, Bladder Distention Musculoskeletal: Yes: WNL Extremities: Yes: WNL Edema: No Integumentary: Yes: WNL Neurological: Yes: WNL ...Motor Strength: WNL Psychiatric: Yes: WNL Labs: CBC, BMP 08/31/16 13:25 08/31/16 13:25 Discharge Summary Reason For Visit: SOB Current Active Problems Chest pain (Acute) Diabetes mellitus type 2 with complications (Acute) HLD (hyperlipidemia) (Acute) HTN (hypertension) (Acute) Hypokalemia due to loss of potassium (Acute) Shortness of breath (Acute) Condition: Stable - Instructions Referrals: Glenroy Cruz MD [Primary Care Provider] - Disposition: TRANSFER ACUTE CARE/OTHER HOSP - Home Medications Comprehensive Discharge Medication List: Ambulatory Orders Amlodipine Besylate 10 mg PO DAILY 08/30/16 Insulin Lispro Protamin/Lispro [Humalog Mix 75-25 Kwikpen] 40 unit SQ [facility] 07/14 Losartan/Hydrochlorothiazide [Losartan-Hctz 100-25 mg Tab] 1 each PO DAILY 08/30
--- NOTE | 2016-09-01 09:43 | PN ---
Progress Note, Physician History of Present Illness: seen and examined today in nad. no overnight events. no new complaints. - Current Medication List Current Medications: Active Medications Amlodipine Besylate (Norvasc -) 10 mg PO DAILY [facility] Last Admin: 08/31/16 15:46 Dose: 10 mg Aspirin (Asa -) 81 mg PO DAILY [facility] Last Admin: 08/31/16 15:46 Dose: 81 mg Atorvastatin Calcium (Lipitor -) 10 mg PO HS [facility] Last Admin: 08/31/16 21:48 Dose: 10 mg Clopidogrel Bisulfate (Plavix -) 75 mg PO DAILY [facility] Last Admin: 08/31/16 15:46 Dose: 75 mg HCTZ/Losartan Potassium (Hyzaar -) 2 tab PO DAILY [facility] Last Admin: 08/31/16 10:39 Dose: Not Given Insulin Aspart (Novolog Vial Sliding Scale -) 1 vial SQ [facility] PRN Reason: Protocol Last Admin: 09/01/16 06:57 Dose: 2 units Insulin Detemir (Levemir Vial) 50 units SQ [facility] Metoprolol Succinate (Toprol Xl -) 25 mg PO DAILY [facility] Last Admin: 08/31/16 15:46 Dose: 25 mg Potassium Chloride (K-Dur -) 20 meq PO DAILY [facility] Last Admin: 08/31/16 15:46 Dose: 20 meq Sitagliptin Phosphate (Januvia -) 50 mg PO DAILY@0700 [facility] Last Admin: 09/01/16 06:55 Dose: 50 mg - Objective Vital Signs: Vital Signs Temperature 98.0 F 09/01/16 06:00 Pulse Rate 62 09/01/16 06:00 Respiratory Rate 18 09/01/16 06:00 Blood Pressure 128/70 09/01/16 06:00 O2 Sat by Pulse Oximetry (%) 100 08/31/16 21:00 Constitutional: Yes: Well Nourished, No Distress, Calm Eyes: Yes: WNL, Conjunctiva Clear, EOM Intact, PERRL HENT: Yes: WNL, Atraumatic, Normocephalic Neck: Yes: WNL, Supple, Trachea Midline Cardiovascular: Yes: WNL, Regular Rate and Rhythm, S1, S2. No: Bradycardia, Tachycardia, Pulse Irregular, Bruit, JVD, Gallop, Murmur, Rub, S3, S4, Varicosities Respiratory: Yes: WNL, Regular, CTA Bilaterally. No: Rales, Rhonchi, Wheezes Gastrointestinal: Yes: WNL, Normal Bowel Sounds, Soft. No: Distention, Tenderness Musculoskeletal: Yes: WNL Extremities: Yes: WNL Edema: No Peripheral Pulses WNL: Yes Peripheral Pulses: Left Doralis Pedis: 2+, Right Dorsalis Pedis: 2+ Integumentary: Yes: WNL Neurological: Yes: WNL, Alert, Oriented, Cran Nerves II-XII Intact ...Motor Strength: WNL Psychiatric: Yes: WNL, Alert, Oriented Labs: CBC, BMP 08/31/16 13:25 08/31/16 13:25 INR, PTT INR 1.22 (0.82-1.09) H 08/30/16 13:04 - ....Imaging Chest X-ray: Report Reviewed, Image Reviewed EKG: Report Reviewed, Image Reviewed Other: Report Reviewed, Image Reviewed (tele-nsr, sinus bradycardia, no sig arrhythmias) Problem List - Problems (1) Shortness of breath Code(s): R06.02 - SHORTNESS OF BREATH (2) Chest pain Code(s): R07.9 - CHEST PAIN, UNSPECIFIED Qualifiers: Ischemic chest pain type: other angina pectoris type (3) HTN (hypertension) Code(s): I10 - ESSENTIAL (PRIMARY) HYPERTENSION Qualifiers: Hypertension type: essential hypertension Qualified Code(s): I10 - Essential (primary) hypertension (4) HLD (hyperlipidemia) Code(s): E78.5 - HYPERLIPIDEMIA, UNSPECIFIED Qualifiers: Hyperlipidemia type: mixed hyperlipidemia Qualified Code(s): E78.2 - Mixed hyperlipidemia (5) Diabetes mellitus type 2 with complications Code(s): E11.8 - TYPE 2 DIABETES MELLITUS WITH UNSPECIFIED COMPLICATIONS Assessment/Plan 70 year old woman with a history of HTN, DMII, HLD, breast CA, with c/o 10d history of chest pain and sob. Pt. states that for the past 10 days she has noted sob and substernal, sharp chest pain that occurs mainly with walking and with singing in the choir and with deep inspiration. She also notes RLE calf pain over the same period. Chest pain/SOB-with multiple cardiac risk factors including uncontrolled DMII, HLD, HTN, abnormal EKG -CTA chest showed no evidence of PE -Doppler showed no DVT -cardiac enzymes all wnl -tele showed no sig arrhythmias -echo showed normal LV/RV size and function no sig valvular abnl -nuclear stress test showed mild apical ischemia, no TID, normal LVEF, pt had chest pain and sob during stress test and due to high clinical suspicion will transfer for cardiac catheterization for definitive assessment of coronary arteries and revascularization as needed -cont ASA 81mg daily and Plavix -cont statin HTN-adequately controlled currently -cont losartan/hctz and amlodipine and toprol HLD -fasting lipids above goal -cont statin, will likely need to uptitrate Lipitor
[2016-09-01] MEDS: LOSARTAN 50MG/HCTZ 12.5MG 1 TAB (FP) PO SCH (10:21)
[2016-09-01] MEDS: amLODIPine BESYLATE 10 MG TABLET (FP) PO SCH (10:22)
[2016-09-01] MEDS: POTASSIUM CHLORIDE TABS 10 MEQ TABLET.ER (FP) PO SCH (10:22)
[2016-09-01] MEDS: ASPIRIN 81 MG CHEWABLE TABLETS PO SCH (10:22)
[2016-09-01] MEDS: CLOPIDOGREL BISULFATE 75 MG TABLET (FP) PO SCH (10:22)
[2016-09-01] MEDS: METOPROLOL SUCCINATE 25 MG TAB.SR.24H (FP) PO SCH (10:22)
[2016-09-01 10:32] VITALS: BP 150/50; PULSE 61; TEMP 98.1
[2016-09-01 11:29] LABS: TROPONIN I < 0.02 ng/ml (0.00-0.05)
[2016-09-01] MEDS ORDERED: INSULIN DETEMIR 100 UNITS/ML MDV SQ SCH (22:00)
== END 2016-09-01 11:19 | disposition short-term general hospital (02) | DRG 311 ==
LOC: JER 12:52 → JERBED 15:08 → J4S 20:16
PROVIDERS: ADMIT Internal Medicine; ATTEND Internal Medicine
DX: I20.0 Unstable angina (principal); I10 Essential (primary) hypertension; E78.5 Hyperlipidemia, unspecified; M19.90 Unspecified osteoarthritis, unspecified site; E87.6 Hypokalemia; I25.9 Chronic ischemic heart disease, unspecified; R06.02 Shortness of breath; R94.31 Abnormal electrocardiogram [ECG] [EKG]; E11.8 Type 2 diabetes mellitus with unspecified complications; Z85.3 Personal history of malignant neoplasm of breast
CPT/HCPCS: 36415; 71020-TC; 71275-TC; 78452-TC; 80053; 80061; 82550; 82553; 82607; 83036; 83721; 83735; 83880; 84100; 84439; 84443; 84484; 85025; 85379; 85610; 93005; 93010; 93017; 93306-TC; 93971-TC; 99284-25; A9502; Q9967

== ENCOUNTER 2017-10-10 13:47 | Observation (INO) | payer BC, OTHER ==
--- NOTE | 2017-10-10 15:57 | PDOC ---
History of Present Illness - General Chief Complaint: Chest Pain Stated Complaint: CHEST PAIN Time Seen by Provider: 10/10/17 15:13 - History of Present Illness Initial Comments: 10/10/17 15:51 72 F with h/o HTN, HLD, DM, CAD/stents on plavix, presenting to ED with 3 episodes of chest pain today. Pt states that she felt a sharp stabbing pain in her left chest while she was doing laundry. The pain radiated up her neck and to her shoulder. Pt denies any exacerbating or alleviating factors. The pain subsided on its own but recurred 2 times throughout the day. The last time the pain returned, it was more severe, prompting patient to come to the ED. Prior to arrival, pt took an aspirin, which relieved the pain completely. Pt now denies any pain. Denies SOB. Denies leg swelling. Denies F/C. Past History - Past Medical History Allergies/Adverse Reactions: Allergies Allergy/AdvReac Type Severity Reaction Status Date / Time No Known Allergies Allergy Verified 10/10/17 14:04 Home Medications: Ambulatory Orders Amlodipine Besylate 10 mg PO DAILY 08/30/16 Losartan/Hydrochlorothiazide [Losartan-Hctz 100-25 mg Tab] 1 each PO DAILY 08/30 Atorvastatin Ca [Lipitor] 10 mg PO HS tablet 09/01/16 Anemia: No Asthma: No Cancer: Yes (LEFT BREAST) Cardiac Disorders: No CVA: No COPD: No CHF: No Dementia: No Diabetes: Yes (type II) GI Disorders: No Disorders: No HTN: Yes Hypercholesterolemia: No Liver Disease: No Seizures: No Thyroid Disease: No - Surgical History Abdominal Surgery: No Appendectomy: No Cardiac Surgery: Yes (LAD Stents x2 (09/01/16)) Cholecystectomy: No Lung Surgery: No Neurologic Surgery: No Orthopedic Surgery: No - Suicide/Smoking/Psychosocial Hx Smoking Status: No Smoking History: Never smoked Number of Cigarettes Smoked Daily: 0 Hx Alcohol Use: No Drug/Substance Use Hx: No Substance Use Type: None Hx Substance Use Treatment: No Cardiac Specific PMH - Complaint Specific PMHX Pacemaker: No Review of Systems - Review of Systems Comments:: 10/10/17 15:54 "GENERAL/CONSTITUTIONAL: No fever or chills. No weakness. HEAD, EYES, EARS, NOSE AND THROAT: No change in vision. No ear pain or discharge. No sore throat. CARDIOVASCULAR: + chest pain, no shortness of breath. RESPIRATORY: No cough, wheezing, or hemoptysis. GASTROINTESTINAL: No nausea, vomiting, diarrhea or constipation. GENITOURINARY: No dysuria, frequency, or change in urination. MUSCULOSKELETAL: No joint or muscle swelling or pain. No neck or back pain. SKIN: No rash NEUROLOGIC: No headache, vertigo, loss of consciousness, or change in strength/ sensation. ENDOCRINE: No increased thirst. No abnormal weight change. HEMATOLOGIC/LYMPHATIC: No anemia, easy bleeding, or history of blood clots. ALLERGIC/IMMUNOLOGIC: No hives or skin allergy. " *Physical Exam - Vital Signs Last Vital Signs Temp Pulse Resp BP Pulse Ox 97.9 F 59 L 18 211/74 99 10/10/17 13:50 10/10/17 17:29 10/10/17 17:29 10/10/17 17:29 10/10/17 13:50 - Physical Exam Comments: 10/10/17 15:54 "GENERAL: Awake, alert, and fully oriented, in no acute distress. HEAD: No signs of trauma EYES: PERRLA, EOMI, sclera anicteric, conjunctiva clear ENT: Auricles normal inspection, hearing grossly normal, nares patent, oropharynx clear without exudates. Moist mucosa NECK: Nontender, no stepoffs, Normal ROM, supple, no lymphadenopathy, JVD, or masses LUNGS: Breath sounds equal, clear to auscultation bilaterally. No wheezes, and no crackles HEART: Regular rate and rhythm, normal S1 and S2, no murmurs, rubs or gallops ABDOMEN: Soft, nontender, normoactive bowel sounds. No guarding, no rebound. No masses EXTREMITIES: Normal range of motion, no edema. No clubbing or cyanosis. No cords, erythema, or tenderness NEUROLOGICAL: Cranial nerves II through XII intact. 5/5 strength and sensation in all extremities, Normal speech, normal gait, normal cerebellar function SKIN: Warm, Dry, normal turgor, no rashes or lesions noted. " Heart Score/ECG Review - History History: Moderately suspicious - Electrocardiogram EKG: Non specific repolarization disturbance - Age Age: >/= 65 - Risk Factors Risk Factors Heart Score: Yes Hx Hypercholesterolemia, Yes Hx Hypertension, Yes Hx Diabetes Based on the list above the patient has:: >/=3 risk factors or Hx atherosclerotic disease - Troponin Troponin: </= normal limit - Score Heart Score - Total: 6 - ECG Impressions Comment:: 10/10/17 15:55 NSR, no LALA/STDs, TW flattening laterally, axis wnl, rate 60 ED Treatment Course - LABORATORY CBC & Chemistry Diagram: 10/10/17 15:15 10/10/17 15:15 - ADDITIONAL ORDERS Additional order review: Laboratory Results 10/10/17 10/10/17 10/10/17 15:15 15:15 15:15 PT with INR 12.40 INR 1.10 PTT (Actin FS) 32.2 Sodium 138 Potassium 3.5 Chloride 100 Carbon Dioxide 28 Anion Gap 10 BUN 25 H Creatinine 1.1 H Creat Clearance w eGFR 48.96 Random Glucose 271 H Calcium 9.8 Total Bilirubin 0.2 D AST 12 L ALT 22 Alkaline Phosphatase 73 Creatine Kinase 120 Troponin I < 0.02 B-Natriuretic Peptide 168.57 H Total Protein 7.6 Albumin 3.9 Lipase 373 10/10/17 15:15 RBC 4.32 MCV 83.5 MCHC 32.2 RDW 14.0 MPV 9.8 Neutrophils % 48.6 Lymphocytes % 37.9 Monocytes % 9.3 Eosinophils % 3.3 Basophils % 0.9 - RADIOLOGY Radiology Studies Ordered: Category Date Time Status CHEST X-RAY PORTABLE* [RAD] Stat Radiology 10/10/17 14:56 Taken - Medications Given in the ED: ED Medications Discontinued Medications Generic Name Dose Route Start Last Admin Trade Name Freq PRN Reason Stop Dose Admin Amlodipine Besylate 10 mg 10/10/17 17:44 10/10/17 17:58 Norvasc - PO 10/10/17 17:45 10 mg ONCE ONE Administration Medical Decision Making - Medical Decision Making 10/10/17 15:55 72 F with stuttering chest pain x 1 day. Pt has h/o CAD with stents, will need to r/o ACS. - Labs, trop - CXR - Admit tele 10/10/17 18:01 Labs wnl CXR clear on my read Spoke with Dr. Cruz, who would like to admit to hospitalist. 10/10/17 18:10 Pt admitted to hospitalist. *DC/Admit/Observation/Transfer Diagnosis at time of Disposition: Chest pain - Discharge Dispostion Decision to Admit order: Yes - Referrals Referrals: Glenroy Cruz MD [Primary Care Provider] - - Patient Instructions - Post Discharge Activity Forms/Work/School Notes: Back to Work - Attestations Physician Attestion: 10/10/17 18:10 I, Dr. Sonny Reeder MD, attest that this document has been prepared under my direction and personally reviewed by me in its entirety. I further attest, that it accurately reflects all work, treatment, procedures and medical decision -making performed by me.
--- NOTE | 2017-10-10 16:21 | EKG ---
Test Reason : Blood Pressure : / mmHG Vent. Rate : 060 BPM Atrial Rate : 060 BPM P-R Int : 188 ms QRS Dur : 088 ms QT Int : 422 ms P-R-T Axes : 044 -15 037 degrees QTc Int : 422 ms NORMAL SINUS RHYTHM MODERATE VOLTAGE CRITERIA FOR LVH, MAY BE NORMAL VARIANT CANNOT RULE OUT SEPTAL INFARCT (CITED ON OR BEFORE 16-AUG-2011) ABNORMAL ECG WHEN COMPARED WITH ECG OF 31-AUG-2016 15:15, T WAVE AMPLITUDE HAS DECREASED IN ANTEROLATERAL LEADS Confirmed by ARASELI RAHMAN, DILCIA ([id number]) on 10/10/2017 4:20:39 PM Referred By: Confirmed By:DILCIA MARX MD
[2017-10-10 16:37] LABS: BASO % 0.9 % (0-2.0); EOS % 3.3 % (0-4.5); HEMATOCRIT 36.1 % (32.4-45.2); HEMOGLOBIN 11.6 GM/dL (10.7-15.3); LYMPH % 37.9 % (8-40); MCH 26.9 pg (25.7-33.7); MCHC 32.2 g/dl (32.0-36.0); MEAN CELL VOLUME 83.5 fl (80-96); MEAN PLT VOLUME 9.8 fl (7.5-11.1); MONO % 9.3 % (3.8-10.2); NEUT % 48.6 % (42.8-82.8); PLATELET COUNT 200 K/MM3 (134-434); RBC 4.32 M/mm3 (3.60-5.2); WHITE BLOOD COUNT 4.8 K/mm3 (4.0-10.0)
[2017-10-10 16:46] LABS: INR 1.1 (0.82-1.09); PROTHROMBIN TIME (PATIENT) 12.4 SEC (9.7-13.0)
[2017-10-10 16:49] LABS: ACTIVATED PTT 32.2 SECONDS (26.9-34.4)
[2017-10-10 17:01] LABS: ALBUMIN 3.9 g/dl (3.4-5.0); ANION GAP 10 (8-16); BLOOD UREA NITROGEN 25 mg/dL (7-18); CALCIUM 9.8 mg/dL (8.5-10.1); CHLORIDE 100 mmol/L (98-107); CO2 28 mmol/L (21-32); GLUCOSE,RANDOM 271 mg/dL (74-106); POTASSIUM 3.5 mmol/L (3.5-5.1); SODIUM 138 mmol/L (136-145)
[2017-10-10 17:05] LABS: ALK PHOS 73 U/L (45-117); BILIRUBIN,TOTAL 0.2 mg/dL (0.2-1.0); CREATININE 1.1 mg/dL (0.55-1.02); N-TERMINAL BNP 168.57 pg/ml (5-125); SGOT/AST 12 U/L (15-37); SGPT/ALT 22 U/L (12-78); TOT PROT 7.6 g/dl (6.4-8.2)
[2017-10-10 17:21] LABS: LIPASE 373 U/L (73-393)
[2017-10-10] MEDS ORDERED: amLODIPine BESYLATE 10 MG TABLET (FP) PO ONE (17:44)
[2017-10-10] MEDS ORDERED: LOSARTAN 50MG/HCTZ 12.5MG 1 TAB (FP) PO ONE (17:45)
[2017-10-10] MEDS ORDERED: amLODIPine BESYLATE 5 MG TABLET (FP) ONE (17:56)
--- NOTE | 2017-10-10 21:57 | HP ---
CHIEF COMPLAINT: Chest pain PCP: Dr. Cruz Ecommerce Merchandising Manager: Dr. Kaufman HISTORY OF PRESENT ILLNESS: 72 year-old female with a PMH significant for HTN, HLD, CAD s/p stents on Plavix , IDDM, and left breast cancer s/p lumpectomy s/p RXT. Was awakened this morning by left upper chest pain. Patient describes pain as sharp at its inception, and then waned in intensity as it "rippled" upward toward her left shoulder. Each individual episode lasted for several seconds, and they occurred intermittently over 5 hours. Nothing made the pain worse. Taking ASA 162mg made the pain better. There was no associated SOB, diaphoresis, or palpitations. Patient has not experienced [place], lower extremity edema, orthopnea, or PND. She denies musculoskeletal stress or trauma. Denies fever, sweats, chills. Last echo and stress were in August 2016 reportedly normal. ER course was notable for: (1) Troponin neg x 1 (2) BP 211/74-->168/84 Recent Travel: No PAST MEDICAL HISTORY: Hypertension Hyperlipidemia Coronary artery disease IDDM Breast cancer s/p RXT PAST SURGICAL HISTORY: Coronary stents (2017, [facility]) Left breast lumpectomy Hysterectomy Social History: Smoking: never Alcohol: no Drugs: no Family History: mother 84 Alzheimer's; father 42 kidney disease; sister 66 NE; 1 living sister with DM; 2 sisters a&w; children a&w Allergies No Known Allergies Allergy (Verified 10/10/17 14:04) HOME MEDICATIONS: Home Medications Medication Instructions Recorded Amlodipine Besylate 10 mg PO DAILY 08/30/16 Losartan/Hydrochlorothiazide 1 each PO DAILY 08/30/16 [Losartan-Hctz 100-25 mg Tab] Atorvastatin Ca [Lipitor] 10 mg PO HS tablet 09/01/16 REVIEW OF SYSTEMS CONSTITUTIONAL: Absent: fever, chills, diaphoresis, generalized weakness, malaise, loss of appetite, weight change HEENT: Absent: rhinorrhea, nasal congestion, throat pain, throat swelling, difficulty swallowing, mouth swelling, ear pain, eye pain, visual changes CARDIOVASCULAR: +chest pain Absent: syncope, palpitations, irregular heart rate, lightheadedness, peripheral edema RESPIRATORY: Absent: cough, shortness of breath, dyspnea with exertion, orthopnea, wheezing, stridor, hemoptysis GASTROINTESTINAL: Absent: abdominal pain, abdominal distension, nausea, vomiting, diarrhea, constipation, melena, hematochezia GENITOURINARY: Absent: dysuria, frequency, urgency, hesitancy, hematuria, flank pain, genital pain MUSCULOSKELETAL: Absent: myalgia, arthralgia, joint swelling, back pain, neck pain SKIN: Absent: rash, itching, pallor HEMATOLOGIC/IMMUNOLOGIC: Absent: easy bleeding, easy bruising, lymphadenopathy, frequent infections ENDOCRINE: Absent: unexplained weight gain, unexplained weight loss, heat intolerance, cold intolerance NEUROLOGIC: Absent: headache, focal weakness or paresthesias, dizziness, unsteady gait, seizure, mental status changes, bladder or bowel incontinence PSYCHIATRIC: Absent: anxiety, depression, suicidal or homicidal ideation, hallucinations. PHYSICAL EXAMINATION Vital Signs Temperature 98.1 F 10/10/17 20:15 Pulse Rate 66 10/10/17 20:15 Respiratory Rate 20 10/10/17 22:38 Blood Pressure 172/74 10/10/17 20:15 O2 Sat by Pulse Oximetry (%) 98 10/10/17 22:38 GENERAL: Awake, alert, and fully oriented, in no acute distress. HEAD: Normal with no signs of trauma. EYES: Pupils equal, round and reactive to light, extraocular movements intact, sclera anicteric, conjunctiva clear. No lid lag. EARS, NOSE, THROAT: Ears normal, nares patent, oropharynx clear without exudates. Moist mucous membranes. NECK: Normal range of motion, supple without lymphadenopathy, JVD, or masses. LUNGS: Breath sounds equal, clear to auscultation bilaterally. No wheezes, and no crackles. No accessory muscle use. HEART: Regular rate and rhythm, normal S1 and S2 without murmur, rub or gallop. ABDOMEN: Soft, nontender, not distended, normoactive bowel sounds, no guarding, no rebound. MUSCULOSKELETAL: Normal range of motion at all joints. No bony deformities or tenderness. No CVA tenderness. UPPER EXTREMITIES: 2+ pulses, warm, well-perfused. No cyanosis. No clubbing. No peripheral edema. LOWER EXTREMITIES: 2+ pulses, warm, well-perfused. No calf tenderness. No peripheral edema. NEUROLOGICAL: Cranial nerves II-XII intact. Normal speech. PSYCHIATRIC: Cooperative. Good eye contact. Appropriate mood and affect. SKIN: Warm, dry, normal turgor Laboratory Results - last 24 hr 10/10/17 10/10/17 10/10/17 15:15 15:15 15:15 WBC 4.8 RBC 4.32 Hgb 11.6 Hct 36.1 MCV 83.5 MCH 26.9 MCHC 32.2 RDW 14.0 Plt Count 200 MPV 9.8 Absolute Neuts (auto) 2.3 Neutrophils % 48.6 Lymphocytes % 37.9 Monocytes % 9.3 Eosinophils % 3.3 Basophils % 0.9 Nucleated RBC % 0 PT with INR 12.40 INR 1.10 PTT (Actin FS) 32.2 Sodium Potassium Chloride Carbon Dioxide Anion Gap BUN Creatinine Creat Clearance w eGFR Random Glucose Calcium Total Bilirubin AST ALT Alkaline Phosphatase Creatine Kinase 120 Troponin I < 0.02 B-Natriuretic Peptide 168.57 H Total Protein Albumin Lipase 10/10/17 15:15 WBC RBC Hgb Hct MCV MCH MCHC RDW Plt Count MPV Absolute Neuts (auto) Neutrophils % Lymphocytes % Monocytes % Eosinophils % Basophils % Nucleated RBC % PT with INR INR PTT (Actin FS) Sodium 138 Potassium 3.5 Chloride 100 Carbon Dioxide 28 Anion Gap 10 BUN 25 H Creatinine 1.1 H Creat Clearance w eGFR 48.96 Random Glucose 271 H Calcium 9.8 Total Bilirubin 0.2 D AST 12 L ALT 22 Alkaline Phosphatase 73 Creatine Kinase Troponin I B-Natriuretic Peptide Total Protein 7.6 Albumin 3.9 Lipase 373 ASSESSMENT/PLAN 72 year-old female with a PMH significant for HTN, HLD, CAD s/p stents on Plavix , IDDM, and left breast cancer s/p lumpectomy s/p RXT. Placed on observation for chest pain. Chest pain --troponin neg x 1, two pending --ECG not suggestive of acute ischemic event --CXR unremarkable --last echo and stress 08/2016 which led to cardiac cath and stenting --continue Plavix --echo ordered --TSH, lipid profile --NPO after midnight --cardiology consult requested Hypertension --BP elevated --continue losartan, amlodipine, HCTZ Hyperlipidemia --continue Lipitor Coronary artery disease s/p stents --continue Plavix IDDM --Novolog sliding scale coverage --HgbA1C pending Left breast cancer --stable, not on meds FEN Fluids: PO intake adequate Electrolytes: replete as indicated Nutrition: NPO after midnight DVT prophylaxis: oob, ambulation Dispo: continues to require observation. Full code. Visit type - Emergency Visit Emergency Visit: Yes ED Registration Date: 10/10/17 Care time: The patient presented to the Emergency Department on the above date and was hospitalized for further evaluation of their emergent condition. - New Patient This patient is new to me today: Yes Date on this admission: 10/10/17 - Critical Care Critical Care patient: No Hospitalist Screening - Colonoscopy Questionnaire Colonoscopy Questionnaire: Colonoscopy Questionnaire - Patient: 50 - 75 years old and never had a screening colonoscopy: Unknown History of colon or rectal polyps, or CA: Unknown History of IBD, Crohn's disease or UC: Unknown History of abdominal radiation therapy as a child: Unknown - Relative: 1 with colon or rectal CA, or polyps at age 60 or younger: Unknown Colon or rectal CA diagnosed at age 45 or younger: Unknown Multiple relatives with colon or rectal CA: Unknown - Outcome: Screening Result: Negative Screen
[2017-10-10] MEDS ORDERED: ATORVASTATIN CA 10 MG TABLET (FP) PO SCH (22:00)
[2017-10-10 22:36] VITALS: BMI 25.0
[2017-10-11 08:56] LABS: ALBUMIN 3.2 g/dl (3.4-5.0); ALK PHOS 56 U/L (45-117); ANION GAP 10 (8-16); BILIRUBIN,TOTAL 0.3 mg/dL (0.2-1.0); BLOOD UREA NITROGEN 25 mg/dL (7-18); CHLORIDE 104 mmol/L (98-107); CO2 27 mmol/L (21-32); GLUCOSE,RANDOM 154 mg/dL (74-106); MAGNESIUM 1.6 mg/dL (1.8-2.4); POTASSIUM 3.3 mmol/L (3.5-5.1); SGOT/AST 10 U/L (15-37); SGPT/ALT 17 U/L (12-78); SODIUM 141 mmol/L (136-145); TOT PROT 6.4 g/dl (6.4-8.2)
[2017-10-11 09:02] LABS: CHOLESTEROL 186 mg/dL (50-200); HDL CHOLESTEROL 36 mg/dL (40-60); TRIGLYCERIDES 183 mg/dL (35-160)
[2017-10-11 09:04] LABS: EOS % 4.6 % (0-4.5); HEMATOCRIT 33.3 % (32.4-45.2); LYMPH % 46.8 % (8-40); MCH 27.4 pg (25.7-33.7); MEAN CELL VOLUME 83.1 fl (80-96); MEAN PLT VOLUME 9.6 fl (7.5-11.1); MONO % 8.1 % (3.8-10.2); NEUT % 39.5 % (42.8-82.8); PLATELET COUNT 182 K/MM3 (134-434); RBC 4.01 M/mm3 (3.60-5.2); RDW 13.7 % (11.6-15.6); WHITE BLOOD COUNT 5.3 K/mm3 (4.0-10.0)
[2017-10-11] MEDS ORDERED: LOSARTAN POTASSIUM 50 MG TABLET (FP) PO SCH (10:00)
[2017-10-11] MEDS ORDERED: CLOPIDOGREL BISULFATE 75 MG TABLET (FP) PO SCH (10:00)
[2017-10-11] MEDS ORDERED: PATIENT'S OWN MEDICATION (NON-FORMULARY) (Losartan/Hydrochlorothiazide [Losartan-Hctz 100- PO SCH (10:00)
[2017-10-11] MEDS ORDERED: amLODIPine BESYLATE 10 MG TABLET (FP) PO SCH (10:00)
[2017-10-11] MEDS ORDERED: HYDROCHLOROTHIAZIDE 25 MG TABLET (FP) PO SCH (10:00)
[2017-10-11] MEDS ORDERED: REGADENOSON 0.4 MG/5 ML PRE-FILLED SYRINGE IVPUSH ONE ×2 (10:30→13:15)
[2017-10-11 10:39] VITALS: PULSE 62; TEMP 98.7
[2017-10-11] MEDS ORDERED: amLODIPine BESYLATE 5 MG TABLET (FP) ONE (13:30)
[2017-10-11] MEDS ORDERED: HYDROCHLOROTHIAZIDE 25 MG TABLET (FP) ONE (13:31)
[2017-10-11 14:12] VITALS: BP 152/82
--- NOTE | 2017-10-11 15:59 | CON.CARD ---
Consult Consult Specialty:: Cardiology Reason for Consultation:: chest pain - History of Present Illness History of Present Illness: 72 F with HTN and CAD sp Stenting at [facility] 1 year ago when presenting with CP and abnormal stress test. She is now admitted with recurrent but breif bouts of chest pain without diaphoresis or radiation very different than her initial angina symptoms. She has rulled out and cardiac testing was negative. 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 No: AFIB, CHF, Deep Vein Thrombosis ...: No Endocrine: Yes: Diabetes Mellitus. No: Bee's Disease, Sandy's Disease, Diabetes Insipidus, Hyperparathyroidism, Hyperthyroidism, Hypothyroidism, Osteopenia, SIADH, Other - Past Surgical History Past Surgical History: Yes: Breast Biopsy. No: AAA Repair, AICD, AV Fistula/ Graft, Bypass - Alcohol/Substance Use Hx Alcohol Use: No - Smoking History Smoking history: Never smoked Aproximately how many cigarettes per day: 0 - Social History Usual Living Arrangement: With Spouse ADL: Independent History of Recent Travel: No Home Medications - Allergies Allergies/Adverse Reactions: Allergies Allergy/AdvReac Type Severity Reaction Status Date / Time No Known Allergies Allergy Verified 10/10/17 14:04 - Home Medications Home Medications: Ambulatory Orders Amlodipine Besylate 10 mg PO DAILY 08/30/16 Losartan/Hydrochlorothiazide [Losartan-Hctz 100-25 mg Tab] 1 each PO DAILY 08/30 Atorvastatin Ca [Lipitor] 10 mg PO HS tablet 09/01/16 Family Disease History - Family Disease History Family Disease History: Diabetes: Sister, Heart Disease: Sister Review of Systems - Review of Systems Constitutional: reports: No Symptoms Eyes: reports: No Symptoms HENT: reports: No Symptoms Neck: reports: No Symptoms Cardiovascular: reports: Chest Pain. denies: Edema, Palpitations, Shortness of Breath Respiratory: denies: Cough, Exercise Intolerance, Hemoptysis, Orthopnea, SOB on Exertion Gastrointestinal: denies: Abdominal Pain, Bloating, Constipation, Indigestion Genitourinary: denies: Burning, Discharge Neurological: reports: No Symptoms Vital Signs: Vital Signs Temperature 98.7 F 10/11/17 10:00 Pulse Rate 62 10/11/17 10:00 Respiratory Rate 22 10/11/17 10:00 Blood Pressure 152/82 10/11/17 14:12 O2 Sat by Pulse Oximetry (%) 98 10/11/17 10:00 Constitutional: Yes: Well Nourished, No Distress, Calm Eyes: Yes: Conjunctiva Clear, EOM Intact HENT: Yes: Atraumatic, Normocephalic Neck: Yes: Supple, Trachea Midline Respiratory: Yes: Regular, CTA Bilaterally Gastrointestinal: Yes: Normal Bowel Sounds, Soft Renal/: Yes: WNL Cardiovascular: Yes: Regular Rate and Rhythm JVD: No Carotid Bruit: No Heart Sounds: Yes: S1, S2 Murmur: No: Systolic Murmur, Diastolic Murmur - Other Data Labs, Other Data: CBC, BMP 10/11/17 06:00 10/11/17 06:00 INR, PTT INR 1.10 (0.82-1.09) 10/10/17 15:15 Troponin, BNP 10/10/17 10/10/17 10/11/17 15:15 22:00 06:00 Troponin I < 0.02 < 0.02 < 0.02 B-Natriuretic Peptide 168.57 H Troponin, BNP 10/10/17 10/10/17 10/11/17 15:15 22:00 06:00 Troponin I < 0.02 < 0.02 < 0.02 B-Natriuretic Peptide 168.57 H NSR no STT changes Echo: Report Reviewed Problem List - Problems (1) Chest pain Code(s): R07.9 - CHEST PAIN, UNSPECIFIED Assessment/Plan 72 F with HTN and CAD sp Stenting at [facility] 1 year ago when presenting with CP and abnormal stress test. She is now admitted with recurrent but breif bouts of chest pain without diaphoresis or radiation very different than her initial angina symptoms. She has rulled out and cardiac testing was negative. Echo and stress testing were normal .Her present symptoms were very different than anginal symptoms 1 year ago. Unlikely to be anginal pain. COntinue ASA/plavix would continue with statin and beta jaden. Pt can possibly be discharged. will see as needed.
--- NOTE | 2017-10-11 16:02 | DS ---
Physical Exam: SUBJECTIVE: Patient seen and examined OBJECTIVE: Vital Signs Period Temp Pulse Resp BP Sys/Laureano Pulse Ox Last 24 Hr 98.1 F-98.7 F 59-70 18-22 149-211/74-87 98-98 PHYSICAL EXAM GENERAL: The patient is awake, alert, and fully oriented, in no acute distress. HEAD: Normal with no signs of trauma. EYES: PERRL, extraocular movements intact, sclera anicteric, conjunctiva clear. ENT: Ears normal, nares patent, oropharynx clear without exudates, moist mucous membranes. NECK: Trachea midline, full range of motion, supple. LUNGS: Breath sounds equal, clear to auscultation bilaterally, no wheezes, no crackles, no accessory muscle use. HEART: Regular rate and rhythm, S1, S2 without murmur, rub or gallop. ABDOMEN: Soft, nontender, nondistended, normoactive bowel sounds, no guarding, no rebound, no hepatosplenomegaly, no masses. EXTREMITIES: 2+ pulses, warm, well-perfused, no edema. NEUROLOGICAL: Cranial nerves II through XII grossly intact. Normal speech, gait not observed. PSYCH: Normal mood, normal affect. SKIN: Warm, dry, normal turgor, no rashes or lesions noted. LABS Laboratory Results - last 24 hr 10/10/17 10/10/17 10/10/17 15:15 15:15 15:15 WBC 4.8 RBC 4.32 Hgb 11.6 Hct 36.1 MCV 83.5 MCH 26.9 MCHC 32.2 RDW 14.0 Plt Count 200 MPV 9.8 Absolute Neuts (auto) 2.3 Neutrophils % 48.6 Lymphocytes % 37.9 Monocytes % 9.3 Eosinophils % 3.3 Basophils % 0.9 Nucleated RBC % 0 PT with INR 12.40 INR 1.10 PTT (Actin FS) 32.2 Sodium Potassium Chloride Carbon Dioxide Anion Gap BUN Creatinine Creat Clearance w eGFR Random Glucose Calcium Magnesium Total Bilirubin AST ALT Alkaline Phosphatase Creatine Kinase 120 Troponin I < 0.02 B-Natriuretic Peptide 168.57 H Total Protein Albumin Triglycerides Cholesterol Total LDL Cholesterol HDL Cholesterol Lipase TSH 10/10/17 10/10/17 10/11/17 15:15 22:00 06:00 WBC 5.3 RBC 4.01 Hgb 11.0 Hct 33.3 MCV 83.1 MCH 27.4 MCHC 33.0 RDW 13.7 Plt Count 182 MPV 9.6 Absolute Neuts (auto) 2.1 Neutrophils % 39.5 L Lymphocytes % 46.8 H D Monocytes % 8.1 Eosinophils % 4.6 H Basophils % 1.0 Nucleated RBC % 0 PT with INR INR PTT (Actin FS) Sodium 138 Potassium 3.5 Chloride 100 Carbon Dioxide 28 Anion Gap 10 BUN 25 H Creatinine 1.1 H Creat Clearance w eGFR 48.96 Random Glucose 271 H Calcium 9.8 Magnesium Total Bilirubin 0.2 D AST 12 L ALT 22 Alkaline Phosphatase 73 Creatine Kinase Troponin I < 0.02 B-Natriuretic Peptide Total Protein 7.6 Albumin 3.9 Triglycerides Cholesterol Total LDL Cholesterol HDL Cholesterol Lipase 373 TSH 10/11/17 10/11/17 10/11/17 06:00 06:00 06:00 WBC RBC Hgb Hct MCV MCH MCHC RDW Plt Count MPV Absolute Neuts (auto) Neutrophils % Lymphocytes % Monocytes % Eosinophils % Basophils % Nucleated RBC % PT with INR INR PTT (Actin FS) Sodium 141 Potassium 3.3 L Chloride 104 Carbon Dioxide 27 Anion Gap 10 BUN 25 H Creatinine 1.0 Creat Clearance w eGFR 54.66 Random Glucose 154 H Calcium 9.0 Magnesium 1.6 L Total Bilirubin 0.3 D AST 10 L ALT 17 Alkaline Phosphatase 56 Creatine Kinase 74 Troponin I < 0.02 B-Natriuretic Peptide Total Protein 6.4 Albumin 3.2 L Triglycerides 183 H Cholesterol 186 Total LDL Cholesterol 124 H HDL Cholesterol 36 L Lipase TSH 0.55 HOSPITAL COURSE: Date of Admission:10/10/17 Date of Discharge: 10/11/17 Discharge Summary Reason For Visit: CHEST PAIN Current Active Problems Chest pain (Acute) - Instructions Referrals: Glenroy Cruz MD [Primary Care Provider] - - Home Medications Comprehensive Discharge Medication List: Ambulatory Orders Amlodipine Besylate 10 mg PO DAILY 08/30/16 Losartan/Hydrochlorothiazide [Losartan-Hctz 100-25 mg Tab] 1 each PO DAILY 08/30 Atorvastatin Ca [Lipitor] 10 mg PO HS tablet 09/01/16
[2017-10-11] MEDS ORDERED: ATORVASTATIN CA 20 MG TABLET (FP) PO SCH (22:00)
== END 2017-10-11 17:37 | disposition home or self-care (01) ==
LOC: JER 13:47 → JERBED 18:10 → J4W 19:33
PROVIDERS: ADMIT Internal Medicine; ATTEND Nurse Practitioner Family
DX: R07.9 Chest pain, unspecified (principal); I10 Essential (primary) hypertension; I25.10 Atherosclerotic heart disease of native coronary artery without angina pectoris; E78.5 Hyperlipidemia, unspecified; E11.9 Type 2 diabetes mellitus without complications; G62.9 Polyneuropathy, unspecified; Z85.3 Personal history of malignant neoplasm of breast; Z79.01 Long term (current) use of anticoagulants; Z95.5 Presence of coronary angioplasty implant and graft
CPT/HCPCS: 36415; 71045-TC-FY; 78452-TC; 80053; 80061; 82550; 83036; 83690; 83721; 83735; 83880; 84443; 84484; 85025; 85610; 85730; 93005; 93010; 93017; 93306-TC; 99285-25; A9502; G0378

== ENCOUNTER 2018-06-25 19:42 | Emergency (ER) | payer OTHER ==
--- NOTE | 2018-06-25 19:58 | PDOC ---
Rapid Medical Evaluation Chief Complaint: Chest Pain Medical Evaluation: Allergies Allergy/AdvReac Type Severity Reaction Status Date / Time No Known Allergies Allergy Verified 06/25/18 19:55 I have performed a brief in-person evaluation of this patient. The patient presents with a chief complaint of: c/o L sided sharp CP since yesterday; denies sob; CP worse with exertion Pertinent physical exam findings: In NAD, lungs clear I have ordered the following: EKG, CXR, labs The patient will proceed to the ED for further evaluation. 06/25/18 19:56
[2018-06-25 19:59] VITALS: BMI 25.0
[2018-06-25 20:35] LABS: EOS % 2.8 % (0-4.5); HEMATOCRIT 37.6 % (32.4-45.2); HEMOGLOBIN 12.5 GM/dL (10.7-15.3); LYMPH % 35.7 % (8-40); MCH 28.3 pg (25.7-33.7); MCHC 33.3 g/dl (32.0-36.0); MEAN CELL VOLUME 85.1 fl (80-96); MEAN PLT VOLUME 9.5 fl (7.5-11.1); MONO % 7.9 % (3.8-10.2); NEUT % 52.6 % (42.8-82.8); PLATELET COUNT 198 K/MM3 (134-434); RBC 4.43 M/mm3 (3.60-5.2); RDW 14.2 % (11.6-15.6); WHITE BLOOD COUNT 7.3 K/mm3 (4.0-10.0)
[2018-06-25 21:01] LABS: ANION GAP 8 MMOL/L (8-16); BLOOD UREA NITROGEN 25 mg/dL (7-18); CALCIUM 9.7 mg/dL (8.5-10.1); CHLORIDE 103 mmol/L (98-107); CO2 29 mmol/L (21-32); CREATININE 1.1 mg/dL (0.55-1.3); GLUCOSE,RANDOM 178 mg/dL (74-106); POTASSIUM 3.4 mmol/L (3.5-5.1); SODIUM 140 mmol/L (136-145)
--- NOTE | 2018-06-25 21:09 | PDOC ---
History of Present Illness - General History Source: Patient Exam Limitations: No Limitations <Paramjit Stroud - Last Filed: 06/25/18 22:12> <JonathanMeenu Jo Ann - Last Filed: 06/25/18 22:22> - General Chief Complaint: Chest Pain Stated Complaint: CHEST PAIN Time Seen by Provider: 06/25/18 19:55 - History of Present Illness Initial Comments: 06/25/18 21:42 The patient is a 72 year old female with a past medical history of HTN, HLD, DM , CAD/stents, and arthritis who presents to the emergency department for evaluation of left sided chest pain. Patient reports a 3 day history of left sided chest pain, initially presenting as back pain radiating to the side of her left breast. She reports associated numbness and tingling of left arm. Patient describes the pain as intermittent, beginning in cold weather, which she notes is later resolved when she is indoors. Denies diaphoresis or modifying factors to her pain. Denies taking any medication for the aforementioned pain. Patient had negative stress test and echocardiogram last year. At presentation, she reports intermittent episodes of left calf pain which started this morning. Denies any history of trauma to chest or calf. The patient denies shortness of breath, palpitations, headache, and dizziness. Denies fevers, chills, nausea, vomiting, diarrhea, and constipation. Denies dysuria, hematuria, and urinary urgency/frequency/ Allergies: No known allergies. Social History: No reported alcohol, cigarette, or drug use. PCP: (Paramjit Stroud) Past History <Paramjit Stroud - Last Filed: 06/25/18 22:12> - Past Medical History Anemia: No Asthma: No Cancer: Yes (LEFT BREAST) Cardiac Disorders: No CVA: No COPD: No CHF: No Dementia: No Diabetes: Yes GI Disorders: No Disorders: No HTN: Yes Hypercholesterolemia: Yes Liver Disease: No Seizures: No Thyroid Disease: No - Surgical History Abdominal Surgery: No Appendectomy: No Cardiac Surgery: Yes (LAD Stents x2 (09/01/16)) Cholecystectomy: No Lung Surgery: No Neurologic Surgery: No Orthopedic Surgery: No - Suicide/Smoking/Psychosocial Hx Smoking Status: No Smoking History: Never smoked Number of Cigarettes Smoked Daily: 0 Hx Alcohol Use: No Drug/Substance Use Hx: No Substance Use Type: None Hx Substance Use Treatment: No <Meenu Castillo - Last Filed: 06/25/18 22:22> - Past Medical History Allergies/Adverse Reactions: Allergies Allergy/AdvReac Type Severity Reaction Status Date / Time No Known Allergies Allergy Verified 06/25/18 19:55 Home Medications: Ambulatory Orders Amlodipine Besylate 10 mg PO DAILY 08/30/16 Losartan/Hydrochlorothiazide [Losartan-Hctz 100-25 mg Tab] 1 each PO DAILY 08/30 Atorvastatin Ca [Lipitor] 20 mg PO HS #60 tablet 10/11/17 Clopidogrel Bisulfate [Plavix -] 75 mg PO DAILY tablet 10/11/17 Cardiac Specific PMH - Complaint Specific PMHX Pacemaker: No <Meenu Castillo - Last Filed: 06/25/18 22:22> Review of Systems - Review of Systems Able to Perform ROS?: Yes <Paramjit Stroud - Last Filed: 06/25/18 22:12> <Meenu Castlilo - Last Filed: 06/25/18 22:22> - Review of Systems Comments:: CONSTITUTIONAL: Absent: fever, chills, diaphoresis, generalized weakness, malaise, loss of appetite HEENT: Absent: rhinorrhea, nasal congestion, throat pain, throat swelling, difficulty swallowing, mouth swelling, ear pain, eye pain, visual Changes CARDIOVASCULAR: (+)chest pain Absent: syncope, palpitations, irregular heart rate, lightheadedness, peripheral edema RESPIRATORY: Absent: cough, shortness of breath, dyspnea with exertion, orthopnea, wheezing, stridor, hemoptysis GASTROINTESTINAL: Absent: abdominal pain, abdominal distension, nausea, vomiting, diarrhea, constipation, melena, hematochezia GENITOURINARY: Absent: dysuria, frequency, urgency, hesitancy, hematuria, flank pain, genital pain MUSCULOSKELETAL: (+)left calf pain. Absent: myalgia, arthralgia, joint swelling SKIN: Absent: rash, itching, pallor HEMATOLOGIC/IMMUNOLOGIC: Absent: easy bleeding, easy bruising, lymphadenopathy, frequent infections ENDOCRINE: Absent: unexplained weight gain, unexplained weight loss, heat intolerance, cold intolerance NEUROLOGIC: (+)Paresthesia in left arm and left hand. Absent: headache, dizziness, unsteady gait, seizure, mental status changes, bladder or bowel incontinence PSYCHIATRIC: Absent: anxiety, depression, suicidal or homicidal ideation, hallucinations. (Paramjit Stroud) *Physical Exam <Paramjit Stroud - Last Filed: 06/25/18 22:12> <Meenu Castillo - Last Filed: 06/25/18 22:22> - Vital Signs Last Vital Signs Temp Pulse Resp BP Pulse Ox 98.2 F 98 H 20 159/99 98 06/25/18 19:55 06/25/18 19:55 06/25/18 19:55 06/25/18 19:55 06/25/18 19:55 - Physical Exam Comments: 06/25/18 21:43 wnwd 72 yo F in no acute distress head ncat neck supple, no bruits. No JVD oropharynx no exudates Heart RRR. No gallops, murmurs, or rubs. lungs clear to auscultation bilaterally abd soft,nontender ext no e/c/c, MAEx4 (+)good dp pulses on left leg. skin warm and dry,no rashes neuro A&Ox3,no gross focal neuro deficits (Paramjit Stroud) - Procedure Monitoring Vital Signs: Procedure Monitoring Vital Signs Temperature 98.2 F 06/25/18 19:55 Pulse Rate 98 H 06/25/18 19:55 Respiratory Rate 20 06/25/18 19:55 Blood Pressure 159/99 06/25/18 19:55 O2 Sat by Pulse Oximetry (%) 98 06/25/18 19:55 ED Treatment Course - LABORATORY CBC & Chemistry Diagram: 06/25/18 20:09 06/25/18 20:07 <Paramjit Stroud - Last Filed: 06/25/18 22:12> - LABORATORY CBC & Chemistry Diagram: 06/25/18 20:09 06/25/18 20:07 <Meenu Castillo - Last Filed: 06/25/18 22:22> - ADDITIONAL ORDERS Additional order review: Laboratory Results 06/25/18 20:07 Sodium 140 Potassium 3.4 L Chloride 103 Carbon Dioxide 29 Anion Gap 8 BUN 25 H Creatinine 1.1 Creat Clearance w eGFR 48.96 Random Glucose 178 H Calcium 9.7 Troponin I < 0.02 06/25/18 20:09 RBC 4.43 MCV 85.1 MCHC 33.3 RDW 14.2 MPV 9.5 Neutrophils % 52.6 D Lymphocytes % 35.7 D Monocytes % 7.9 Eosinophils % 2.8 Basophils % 1.0 - RADIOLOGY Radiology Studies Ordered: Category Date Time Status DUPLEX VASCUL US-1 LEG [US] Stat Ultrasound 06/25/18 21:19 Completed - Medications Given in the ED: ED Medications Discontinued Medications Generic Name Dose Route Start Last Admin Trade Name Vishnu PRN Reason Stop Dose Admin Acetaminophen 975 mg 06/25/18 22:07 06/25/18 22:08 Tylenol - PO 06/25/18 22:08 975 mg ONCE STA Administration Medical Decision Making <Paramjit Stroud - Last Filed: 06/25/18 22:12> <Meenu Castillo - Last Filed: 06/25/18 22:22> - Medical Decision Making 06/25/18 22:14 72 yo female with atypical chest oain x 3 days associated with cold air when she went outside, currently asymptomatic Chest x-ray was negative for any ptx,infiltrates,congestion,effusions neg troponin cbc unremarkable chemistries glu 178, cr=1.1 duplex doppler NEGATIVE for dvt in left leg imp musculoskeletal leg pain, atypical chest pain d/c home and followup with PCP (Meenu Castillo) *DC/Admit/Observation/Transfer <Paramjit Stroud - Last Filed: 06/25/18 22:12> <Meenu Castillo - Last Filed: 06/25/18 22:22> Diagnosis at time of Disposition: Pain of left calf, Atypical chest pain, Hyperkalemia - Discharge Dispostion Disposition: HOME Condition at time of disposition: Stable - Referrals Referrals: Glenroy Cruz MD [Primary Care Provider] - - Patient Instructions Printed Discharge Instructions: DI for Atypical Chest Pain, DI for Leg Pain Additional Instructions: Take Tylenol for muscle pain please followup with your physician Return for any worsening symptoms - Attestations Scribe Attestion: Documentation prepared by Paramjit Stroud, acting as center medical and lab director for Meenu Castillo MD. (Paramjit Stroud)
[2018-06-25] MEDS ORDERED: ACETAMINOPHEN 500 MG TABLET (FP) PO STA (22:07)
[2018-06-25] MEDS ORDERED: ACETAMINOPHEN 325 MG TABLET (FP) ONE (22:08)
[2018-06-25 22:49] VITALS: BP 142/88; PULSE 91; TEMP 97.9
--- NOTE | 2018-06-26 10:42 | EKG ---
Test Reason : Blood Pressure : / mmHG Vent. Rate : 076 BPM Atrial Rate : 076 BPM P-R Int : 170 ms QRS Dur : 090 ms QT Int : 396 ms P-R-T Axes : 038 -18 087 degrees QTc Int : 445 ms NORMAL SINUS RHYTHM LEFT VENTRICULAR HYPERTROPHY WITH REPOLARIZATION ABNORMALITY CANNOT RULE OUT SEPTAL INFARCT (CITED ON OR BEFORE 16-AUG-2011) ABNORMAL ECG WHEN COMPARED WITH ECG OF 10-OCT-2017 13:59, NO SIGNIFICANT CHANGE WAS FOUND Confirmed by ARASELI RAHMAN, DILCIA ([id number]) on 06/26/2018 10:41:34 AM Referred By: Confirmed By:DILCIA MARX MD
== END 2018-06-25 22:49 | disposition home or self-care (01) ==
LOC: JER 19:42
DX: R07.89 Other chest pain (principal); I25.10 Atherosclerotic heart disease of native coronary artery without angina pectoris; I10 Essential (primary) hypertension; Z95.5 Presence of coronary angioplasty implant and graft; M79.662 Pain in left lower leg; E78.00 Pure hypercholesterolemia, unspecified; E11.9 Type 2 diabetes mellitus without complications; Z85.3 Personal history of malignant neoplasm of breast
CPT/HCPCS: 36415; 71046-TC-FY; 80048; 84484; 85025; 93005; 93010; 93971-TC; 99283-25

== ENCOUNTER 2019-07-05 14:00 | Inpatient (IN) | payer OTHER ==
[2019-07-05] MEDS ORDERED: METOPROLOL TARTRATE 5 MG/5 ML VIAL IVPUSH ONE (14:32)
--- NOTE | 2019-07-05 14:33 | PDOC ---
Attending Attestation - Resident Resident Name: Clyde Weiner - ED Attending Attestation I have performed the following: I have examined & evaluated the patient, The case was reviewed & discussed with the resident, I agree w/resident's findings & plan, Exceptions are as noted - HPI HPI: 07/05/19 14:34 73yo female with dm, htn, hld with slurred speech and facial droop that started at 1p. Pt was having her hair done by the daughter who noticed the acute onset of onset. Called 911. Glu 132 upon arrival. Jorje marquis activated. Pt to head ct. - Physicial Exam PE: 07/05/19 14:36 Gen: aaox2 - person and place Heent: PERRL, EOMI, MMM neck: supple heart: +s1s2 rui lungs: cta b/l abd: soft, nt/nd +bs ext: no c/c/e neuro: R mild facial droop - nasolabial fold flattening, muscle strength 5/5 UE and LE, sensation intact, speech improved per the family - Critical Care Time Total Critical Care Time: 45 Critical Care Statement: The care of this patient involved high complexity decision making to prevent further life threatening deterioration of the patient's condition and/or to evaluate & treat vital organ system(s) failure or risk of failure. - Medical Decision Making 07/05/19 14:39 a/p: 73yo female with acute onset of slurred speech and facial droop -concerned for cva -code marquis activated -symptoms improving, still with mild facial droop -head ct without acute findings -elevated bp -will send labs, ekg, cxr -finger stick 132 -will monitor and reassess -call placed to Dr. Hoover - neuro 07/05/19 14:41 pt with R hand trembling/shaking, awake, concern for partial seizure will discuss with neuro 07/05/19 14:[address] hoover - recommends ct angio, will come eval the patient 07/05/19 15:10 Dr. Hoover at the bedside with the patient 07/05/19 15:19 dr hoover states hypertensive emergency, cta neg recommends tight bp control, map 105-110 07/05/19 15:21 pt has passed the swallow eval 07/05/19 15:50 resident discussed the case with Dr. Cruz who requests symphony admission, but under his name pt is noncompliant with meds, unsure when she last took her bp meds, pt with multiple filled bottles, but no pills taken, admits to noncompliance slurred speech resolved, facial droop resolved, family at the bedside aaox3, moving all extremities and neuro intact pt will be admitted to the stroke floor for hypertensive emergency and stroke symptoms/tia Heart Score/ECG Review - ECG Intrepretation Comment:: 07/05/19 14:40 sinus rui at 54, nl axis, nl interval, q wave septally which are age indeterminate, no acute st/t wave findings tPA Exclusion Checklist 0-3hr - Time Elapsed Date last known well: 07/05/19 Time last known well: 13:00 Elaspsed time: Day(s) and 2 Hour(s) and 50 Minutes - Thrombolytic Therapy Candidate Is the patient eligible for Thrombolytic Therapy?: No - Ineligibility reason(s) Reasons No tPA given: See reason(s) noted above (resolving symptoms)
[2019-07-05 14:38] LABS: BASO % 1.3 % (0-2.0); EOS % 2.8 % (0-4.5); HEMATOCRIT 35.2 % (32.4-45.2); HEMOGLOBIN 11.4 GM/dL (10.7-15.3); LYMPH % 28.8 % (8-40); MCH 27.4 pg (25.7-33.7); MCHC 32.4 g/dl (32.0-36.0); MEAN CELL VOLUME 84.6 fl (80-96); MEAN PLT VOLUME 9.7 fl (7.5-11.1); NEUT % 57.1 % (42.8-82.8); PLATELET COUNT 203 K/MM3 (134-434); RBC 4.16 M/mm3 (3.60-5.2); RDW 14.5 % (11.6-15.6); WHITE BLOOD COUNT 5.9 K/mm3 (4.0-10.0)
--- NOTE | 2019-07-05 14:40 | PDOC ---
History of Present Illness - General Chief Complaint: CVA/TIA Stated Complaint: POSSIBLE STROKE Time Seen by Provider: 07/05/19 14:07 History Source: Patient Exam Limitations: No Limitations - History of Present Illness Initial Comments: 07/05/19 17:26 73 yo female pmh HTN, CAD s/p 2 stents (not compliant on ASA, no AC) presents to the ED for sudden onset slurred speech, R sided facial droop, and right upper/lower ext weakness with new AMS at 1 pm. Daughter present in the ED witnessed the event, state while doing mothers hair, they noted the stated symptoms. Jorje espino called immediately, blood sugar 132 Pt unable to provide HPI, at baseline daughters state she is AOX3 and is completely independent. tPA Exclusion Checklist 0-3hr - Time Elapsed Date last known well: 07/05/19 Time last known well: 13:00 Elaspsed time: Day(s) and 4 Hour(s) and 26 Minutes - Thrombolytic Therapy Candidate Is the patient eligible for Thrombolytic Therapy?: Yes - Exclusion Criteria 0-3hr SBP greater than 185 or DBP greater than 110mmHg despite tx: Yes Recent IC/spinal surgery,head trauma or stroke w/in last 3mo: No Hx of previous IC hemorrhage, IC neoplasm, AVM or aneurysm: No Active internal bleeding: No Blding diathesis(low plt ct, inc PTT,INR>1.7 or use of NOAC): No Symptoms suggest subarachnoid hemorrhage: No CT demonstrates multilobar infarct(>1/3 cerebral hemiphere): No Arterial puncture at noncompressible site in previous 7 days: No Blood glucose concentration less than 50mg/dL (2.7mmol/L): No - Relative Exclusion Criteria 0-3h Care team unable to determine eligibility: Yes (Dr. Hoover, Neurology) IV/IA thrombolysis/thrombectomy @ another hosp prior arrival: No Life expectancy <1yr/severe co-morbid illness/CREPE MAKER on admit: No : No Patient/family refused: No Stroke severity too mild (non-disabling): No Recent acute SD (w/in previous 3 months): No Seizure at onset with postictal residual neuro impairments: No Major surgery or serious trauma w/in previous 14 days: No Recent GI or hemorrhage (w/in previous 21 days): No - Ineligibility reason(s) Reasons No tPA given: See reason(s) noted above NIH Stroke Scale - Last Known Well Date/Time & Onset Date Last Known Well: 07/05/19 Time Last Known Well: 13:00 - Initial Evaluation Level of consciousness: Alert Ask patient the month and their age: Answers both correctly Ask patient to open & close eyes; make fist and let go: Obeys both correctly Best gaze (horizontal eye movement): Normal Visual field testing: No visual field loss Facial paresis (Show teeth/raise eyebrows/close eyes tight): Minor paralysis (flattened nasolabial fold, asymmetry on smiling) Motor Function: Left Arm: Normal Motor Function: Right Arm: Normal (extends arm 90 (or 45) degrees for 10 seconds without drift Motor Function: Left Leg: Normal (extends leg 30 degrees for 5 seconds without drift) Motor Function: Right Leg: Normal (extends leg 30 degrees for 5 seconds without drift) Limb Ataxia: No ataxia Sensory(Use pinprick test arms,legs,trunk,face/side to side): Normal Best language (Describe picture, name items, read sentences): No Aphasia Dysarthria (read several words): Normal articulation Extinction and Inattention: No abnormality - Total Score NIH Stroke Scale Score: 1 Past History - Past Medical History Allergies/Adverse Reactions: Allergies Allergy/AdvReac Type Severity Reaction Status Date / Time No Known Allergies Allergy Verified 07/05/19 14:27 Home Medications: Ambulatory Orders Losartan/Hydrochlorothiazide [Losartan-Hctz 100-25 mg Tab] 1 each PO DAILY 08/30/16 Atorvastatin Calcium 40 mg PO HS 07/05/19 Metformin HCl [Glucophage] 1,000 mg PO DAILY 07/05/19 Metoprolol Succinate 50 mg PO BID 07/05/19 Nifedipine [Nifedipine ER] 60 mg PO BID 07/05/19 Anemia: No Asthma: No Cancer: Yes (LEFT BREAST) Cardiac Disorders: No CVA: No COPD: No CHF: No Dementia: No Diabetes: Yes GI Disorders: No Disorders: No HTN: Yes Hypercholesterolemia: Yes Liver Disease: No Seizures: No Thyroid Disease: No - Surgical History Abdominal Surgery: No Appendectomy: No Cardiac Surgery: Yes (LAD Stents x2 (09/01/16)) Cholecystectomy: No Lung Surgery: No Neurologic Surgery: No Orthopedic Surgery: No - Psycho Social/Smoking Cessation Hx Smoking Status: No Smoking History: Never smoked Have you smoked in the past 12 months: No Number of Cigarettes Smoked Daily: 0 Hx Alcohol Use: No Drug/Substance Use Hx: No Substance Use Type: None Hx Substance Use Treatment: No *Physical Exam - Vital Signs Last Vital Signs Temp Pulse Resp BP Pulse Ox 98.1 F 61 16 227/71 H 100 07/05/19 14:05 07/05/19 14:05 07/05/19 14:05 07/05/19 14:05 07/05/19 14:05 ED Treatment Course - LABORATORY CBC & Chemistry Diagram: 07/05/19 14:20 07/05/19 14:20 Medical Decision Making - Medical Decision Making 73 yo female pmh HTN, CAD s/p 2 stents (not compliant on ASA, no AC) presents to the ED for sudden onset slurred speech, R sided facial droop, and right upper/lower ext weakness with new AMS at 1 pm. Daughter present in the ED witnessed the event, state while doing mothers hair, they noted the stated symptoms. Code srinivas called immediately, blood sugar 132 Pt unable to provide HPI, at baseline daughters state she is AOX3 and is completely independent. Pt arrives, following commands, AOX1, eyes closed and appears lethargic, R facial droop noted, no slurred speech or weakness on 1 side. See NIH stroke scale Vitals show elevated BP, Labetolol ordered and will keep MAP 100-[address] shows no acute bleed Noted possible seizure in the ED, eyes rapidly moving and unresponsive, resolved within 5 sec Consulted Neurology, Dr. Hoover in the ED, states no TPA indicated, pt to be admitted to stroke floor and will continue BP control 100-110 MAP. If a new seizure occurs, recommends Keppra loading Pt shows improvement of symptoms after 1 hour of ED arrival, sitting up in bed, no droop noted 07/05/19 15:[address] Cruz, states he will take over care of pt in hospital on Sunday, he is not in hospital today or Sunday and states hospitalist will take care of the patient until then. Discussed case with Hospitalist, Dr. Paulino, agrees to oversee care while pt PCP not in the hospital Discharge - Discharge Information Problems reviewed: Yes Clinical Impression/Diagnosis: Transient ischemic attack, Ischemic stroke Condition: Stable - Admission Yes - Follow up/Referral - Patient Discharge Instructions - Post Discharge Activity
[2019-07-05] MEDS ORDERED: METOPROLOL TARTRATE 5 MG/5 ML VIAL ONE (14:43)
--- NOTE | 2019-07-05 14:49 | CON.NEURO ---
Consult Consult Specialty:: Kiko Referred by:: ER Reason for Consultation:: TIA - History of Present Illness History of Present Illness: 73-year-old right-handed female patient with multiple medical problem including coronary artery disease history of hypertension pressure was at her usual status of health until 1 PM this afternoon last known normal patient's daughter was doing her hair when she noticed udden onset of difficulty expressing herself report of any seizure-like activity. 911 was called stroke protocol was initiated CAT scan of the head revealed no evidence of acute pathology review the CAT scan right away I spoke to the emergency room doctor at 2:42 PM. According to the emergency room the patient was hemodynamically unstable with a high blood pressure patient was stabilized and in the emergency room patient had what looks like he knew onset seizure with the gaze deviation on the right arm tremors that stop by itself there is no family history of seizure patient is on Plavix in the emergency room patient was alert awake oriented 2. 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 No: AFIB, CHF, Deep Vein Thrombosis Endocrine: Yes: Diabetes Mellitus. No: [place]'s Disease, Sandy's Disease, Diabetes Insipidus, Hyperparathyroidism, Hyperthyroidism, Hypothyroidism, Osteop enia, SIADH, Other - Past Surgical History Past Surgical History: Yes: Breast Biopsy. No: AAA Repair, AICD, AV Fistula/Graft, Bypass - Alcohol/Substance Use Hx Alcohol Use: No - Smoking History Smoking history: Never smoked Have you smoked in the past 12 months: No Aproximately how many cigarettes per day: 0 - Social History Usual Living Arrangement: With Spouse ADL: Independent History of Recent Travel: No Home Medications - Allergies Allergies/Adverse Reactions: Allergies Allergy/AdvReac Type Severity Reaction Status Date / Time No Known Allergies Allergy Verified 07/05/19 14:27 - Home Medications Home Medications: Ambulatory Orders Amlodipine Besylate 10 mg PO DAILY 08/30/16 Losartan/Hydrochlorothiazide [Losartan-Hctz 100-25 mg Tab] 1 each PO DAILY 08/30/16 Atorvastatin Ca [Lipitor] 20 mg PO HS #60 tablet 10/11/17 Clopidogrel Bisulfate [Plavix -] 75 mg PO DAILY tablet 10/11/17 Family Medical History Family History: Unable to Obtain, Unremarkable Review of Systems - Review of Systems Constitutional: reports: No Symptoms Eyes: reports: No Symptoms Physical Exam-Neuro Vital Signs: Vital Signs Temperature 98.1 F 07/05/19 14:05 Pulse Rate 61 07/05/19 14:05 Respiratory Rate 16 07/05/19 14:05 Blood Pressure 227/71 H 07/05/19 14:05 O2 Sat by Pulse Oximetry (%) 100 07/05/19 14:05 Labs: CBC, BMP 07/05/19 14:20 - Neuro Exam Level Of Consciousness: Yes: Oriented to Person, Oriented to Place Eyes: Yes: PERRLA Speech: WNL Dominant Hand: Right Cranial Nerves II-XII Intact: Yes Gag: Present DTR's: 1+ Left Bicep, 1+ Right Bicep, 1+ Left Tricep, 1+ Right Tricep Response to light touch: Abnormal Response to pain prick: Abnormal Motor Strength: 3/5: Left Arm, Right Arm, Left Leg, Right Leg Gait: Deferred NIH Stroke Scale - Last Known Well Date/Time & Onset Date Last Known Well: 07/05/19 Time Last Known Well: 13:00 - Initial Evaluation Level of consciousness: Alert Ask patient the month and their age: Answers both correctly Ask patient to open & close eyes; make fist and let go: Obeys both correctly Best gaze (horizontal eye movement): Normal Visual field testing: No visual field loss Facial paresis (Show teeth/raise eyebrows/close eyes tight): Normal symmetrical movement Motor Function: Left Arm: Normal Motor Function: Right Arm: Normal (extends arm 90 (or 45) degrees for 10 seconds without drift Motor Function: Left Leg: Normal (extends leg 30 degrees for 5 seconds without drift) Motor Function: Right Leg: Normal (extends leg 30 degrees for 5 seconds without drift) Limb Ataxia: No ataxia Sensory(Use pinprick test arms,legs,trunk,face/side to side): Normal Best language (Describe picture, name items, read sentences): No Aphasia Dysarthria (read several words): Normal articulation Extinction and Inattention: No abnormality - Total Score NIH Stroke Scale Score: 0 Imaging - Results Cat Scan: Image Reviewed Problem List - Problems (1) CVA (cerebral vascular accident) Code(s): I63.9 - CEREBRAL INFARCTION, UNSPECIFIED Assessment/Plan 73-year-old woman with cardiac history with risk of CVAs including age hypertension Questionable new onset seizure with the resolving left MCA stroke Patient NIH stroke scale improved so she was not a candidate for TPA Questionable no onset seizure also is a relative contraindication for TPA patient was seen in the emergency room Plan 1. CT angiogram of the head to rule out clot formation. 2. Aspirin 81. 3. Continue Plavix. 4. Speech and swallow evaluation. 4. Tight blood pressure control with a target mean around 100. 5. MRI of the brain with no contrast. 6. SCDs. 7. Echo carotid Doppler homocystine level. 8. Physical therapy Rafat Hoover M.D., MSc [facility] [address] [place] [address] Office
[2019-07-05 14:56] LABS: INR 1.15 (0.83-1.09); PROTHROMBIN TIME (PATIENT) 13.6 SEC (9.7-13.0)
[2019-07-05 14:58] LABS: ACTIVATED PTT 34.6 SECONDS (25.2-36.5)
[2019-07-05 15:07] LABS: ALBUMIN 3.4 g/dl (3.4-5.0); ALK PHOS 69 U/L (45-117); ANION GAP 5 MMOL/L (8-16); BILIRUBIN,TOTAL 0.3 mg/dL (0.2-1); BLOOD UREA NITROGEN 23.7 mg/dL (7-18); CHLORIDE 111 mmol/L (98-107); CHOLESTEROL 187 mg/dL (50-200); CO2 28 mmol/L (21-32); CREATININE 1.2 mg/dL (0.55-1.3); GLUCOSE,RANDOM 140 mg/dL (74-106); HDL CHOLESTEROL 46 mg/dL (40-60); LDL CHOLESTEROL (ONLY SJRH) 114 mg/dL (5-100); MAGNESIUM 2.1 mg/dL (1.8-2.4); PHOSPHOROUS 3.7 mg/dL (2.5-4.9); POTASSIUM 4.2 mmol/L (3.5-5.1); SGOT/AST 15 U/L (15-37); SGPT/ALT 14 U/L (13-61); SODIUM 144 mmol/L (136-145); TOT PROT 6.8 g/dl (6.4-8.2); TRIGLYCERIDES 134 mg/dL (0-150)
[2019-07-05 15:18] LABS: EPI CELLS 2.6 /HPF (0-5/HPF); HYALINE CASTS 2 /lpf (0-8); URINE APPEARANCE CLEAR; URINE BACTERIA 19.8 /hpf (NEGATIVE); URINE BILIRUBIN NEGATIVE (NEGATIVE); URINE COLOR YELLOW; URINE GLUCOSE (UA) NEGATIVE (NEGATIVE); URINE KETONE NEGATIVE (NEGATIVE); URINE LEUK ESTERASE 2+ (NEGATIVE); URINE NITRITE NEGATIVE (NEGATIVE); URINE PROTEIN NEGATIVE (NEGATIVE); URINE RBC 2 /hpf (0-4); URINE UROBILINOGEN 0.2 mg/dL (0.2-1.0); URINE WBC 16 /hpf (0-5)
[2019-07-05] MEDS ORDERED: LABETALOL HCL 5 MG/1 ML (100MG/20 ML VIAL) IVPUSH ONE (15:18)
--- NOTE | 2019-07-05 16:26 | HP ---
PCP: Glenroy Cruz CHIEF COMPLAINT: Slurred speech HISTORY OF PRESENT ILLNESS: This is a 73 year old woman with a history of HTN, hyperlipidemia, CAD, type 2 DM who was brought in to the ED by EMS today because of slurred speech. The patient is awake and alert but confused and unable to provide much history. She says she does not remember anything that happened yesterday or today. The jacoboetn's daughter states that she was well around 9 am. She went out, and when she came home around 12 noon, she noticed that her mother's speech was slurred. She also noticed weakness of the left side of her face. The patient then became confused and began speaking slowly. EMS was called and she was brought into the ED. The patient's daughter reports that she has not been taking her medications for some time. She has not been on aspirin or Plavix. PAST MEDICAL HISTORY Hypertension Hyperlipidemia CAD Type 2 diabetes mellitus PAST SURGICAL HISTORY Cardiac stent ~ 2 years ago Hysterectomy Lumpectomy Social History: Smoking: Never smoked Alcohol: None Drugs: None Recent Travel: No Allergies No Known Allergies Allergy (Verified 07/05/19 14:27) Home Medications Medication Instructions Recorded Losartan/Hydrochlorothiazide 1 each PO DAILY 08/30/16 [Losartan-Hctz 100-25 mg Tab] Atorvastatin Ca [Lipitor] 40 mg PO HS 07/05/19 Metoprolol Succinate 50 mg PO BID 07/05/19 Nifedipine [Nifedipine ER] 60 mg PO BID 07/05/19 metFORMIN HCL [Metformin HCl] 1,000 mg PO DAILY 07/05/19 REVIEW OF SYSTEMS Unable to obtain secondary to patient's medical condition PHYSICAL EXAMINATION Vital Signs - 24 hr 07/05/19 07/05/19 07/05/19 14:05 14:30 14:45 Temperature 98.1 F Pulse Rate 61 Pulse Rate [ 60 61 Apical] Respiratory 16 16 18 Rate Blood Pressure 227/71 H Blood Pressure 218/79 H 218/70 H [Left Arm] O2 Sat by Pulse 100 100 100 Oximetry (%) 07/05/19 07/05/19 07/05/19 14:46 15:17 15:22 Temperature Pulse Rate Pulse Rate [ 60 59 L Apical] Respiratory 16 16 Rate Blood Pressure 218/70 H Blood Pressure 222/96 H 196/85 H [Left Arm] O2 Sat by Pulse 98 100 Oximetry (%) 07/05/19 16:15 Temperature 98.1 F Pulse Rate Pulse Rate [ 52 L Apical] Respiratory 13 Rate Blood Pressure Blood Pressure 197/70 H [Left Arm] O2 Sat by Pulse 100 Oximetry (%) GENERAL: Awake, alert, and confused, in no acute distress. HEAD: Normal with no signs of trauma. EYES: Pupils equal, round and reactive to light, extraocular movements intact, sclerae anicteric, conjunctivae clear. EARS, NOSE, THROAT: Ears normal, nares patent, oropharynx clear without exudate s. Moist mucous membranes. NECK: Normal range of motion, supple without lymphadenopathy, JVD, or masses. LUNGS: Breath sounds equal, clear to auscultation bilaterally. No wheezes, and no crackles. No accessory muscle use. HEART: Regular rate and rhythm, normal S1 and S2 without murmur, rub or gallop. ABDOMEN: Soft, nontender, not distended, normoactive bowel sounds, no guarding, no rebound, no masses. No hepatomegaly or splenomegaly. MUSCULOSKELETAL: Normal range of motion at all joints. No bony deformities or tenderness. No CVA tenderness. UPPER EXTREMITIES: 2+ pulses, warm, well-perfused. No cyanosis. No clubbing. No peripheral edema. LOWER EXTREMITIES: 2+ pulses, warm, well-perfused. No calf tenderness. No peripheral edema. NEUROLOGICAL: Confused, able to follow commands. Mild left facial weakness. Tongue midline. Normal speech. Strength 5/5 in all extremities. Sensation intact. PSYCHIATRIC: Cooperative. Good eye contact. Appropriate mood and affect. SKIN: Warm, dry, normal turgor, no rashes or lesions noted, normal capillary refill. Laboratory Results - last 24 hr 07/05/19 07/05/19 07/05/19 14:20 14:20 14:20 WBC 5.9 RBC 4.16 Hgb 11.4 Hct 35.2 MCV 84.6 MCH 27.4 MCHC 32.4 RDW 14.5 Plt Count 203 MPV 9.7 Absolute Neuts (auto) 3.4 Neutrophils % 57.1 Lymphocytes % 28.8 Monocytes % 10.0 Eosinophils % 2.8 Basophils % 1.3 Nucleated RBC % 0 PT with INR INR PTT (Actin FS) Sodium 144 Potassium 4.2 Chloride 111 H Carbon Dioxide 28 Anion Gap 5 L BUN 23.7 H Creatinine 1.2 Est GFR (CKD-EPI)AfAm 52.29 Est GFR (CKD-EPI)NonAf 45.11 Random Glucose 140 H Hemoglobin A1c % 7.6 H Calcium 9.0 Phosphorus 3.7 Magnesium 2.1 Total Bilirubin 0.3 AST 15 ALT 14 Alkaline Phosphatase 69 Creatine Kinase 70 Troponin I < 0.02 Total Protein 6.8 Albumin 3.4 Triglycerides 134 Cholesterol 187 Total LDL Cholesterol 114 H HDL Cholesterol 46 TSH 0.38 Urine Color Urine Appearance Urine pH Ur Specific Nova Urine Protein Urine Glucose (UA) Urine Ketones Urine Blood Urine Nitrite Urine Bilirubin Urine Urobilinogen Ur Leukocyte Esterase Urine WBC (Auto) Urine RBC (Auto) Urine Casts (Auto) U Epithel Cells (Auto) Urine Bacteria (Auto) 07/05/19 07/05/19 14:20 Unknown WBC RBC Hgb Hct MCV MCH MCHC RDW Plt Count MPV Absolute Neuts (auto) Neutrophils % Lymphocytes % Monocytes % Eosinophils % Basophils % Nucleated RBC % PT with INR 13.60 H INR 1.15 H PTT (Actin FS) 34.6 Sodium Potassium Chloride Carbon Dioxide Anion Gap BUN Creatinine Est GFR (CKD-EPI)AfAm Est GFR (CKD-EPI)NonAf Random Glucose Hemoglobin A1c % Calcium Phosphorus Magnesium Total Bilirubin AST ALT Alkaline Phosphatase Creatine Kinase Troponin I Total Protein Albumin Triglycerides Cholesterol Total LDL Cholesterol HDL Cholesterol TSH Urine Color Yellow Urine Appearance Clear Urine pH 6.0 Ur Specific Nova 1.019 Urine Protein Negative Urine Glucose (UA) Negative Urine Ketones Negative Urine Blood Negative Urine Nitrite Negative Urine Bilirubin Negative Urine Urobilinogen 0.2 Ur Leukocyte Esterase 2+ H Urine WBC (Auto) 16 Urine RBC (Auto) 2 Urine Casts (Auto) 2 U Epithel Cells (Auto) 2.6 Urine Bacteria (Auto) 19.8 ASSESSMENT/PLAN: This is a 73 year old woman with a history of HTN, hyperlipidemia, CAD with stent, type 2 DM who presented to the ED with slurred speech and confusion. 1. Acute encephalopathy - Possibly hypertensive - Possibly secondary to TIA/CVA - Possibly metabolic secondary to UTI - Start aspirin - Increase Lipitor - Start ceftriaxone for possible UTI - Check urine culture - MRI of brain - Carotid dopplers - Echocardiogram - Blood pressure control - Swallow eval - PT eval - Neurology consult 2. HTN, uncontrolled, with hypertensive emergency - Lopressor, labetalol given in ED - Restart home meds - Procardia XL, Toprol XL, Cozaar, HCTZ - Echocardiogram 3. Hyperlipidemia - Continue Lipitor 4. CAD, history of stent - Start aspirin - Restart Toprol XL, Lipitor 5. Type 2 DM - HbA1c 7.6 - Hold metformin - Fingersticks with Novolog sliding scale 6. DVT prophylaxis - Heparin subq Family Medical History Family History: Unable to Obtain Visit type - Emergency Visit Emergency Visit: Yes ED Registration Date: 07/05/19 Care time: The patient presented to the Emergency Department on the above date and was hospitalized for further evaluation of their emergent condition. - New Patient This patient is new to me today: Yes Date on this admission: 07/05/19 - Critical Care Critical Care patient: No
[2019-07-05] MEDS: INSULIN SLIDING SCALE (NOVOLOG) 1 VIAL SQ SCH ×2 (17:39→22:09)
[2019-07-05] MEDS: ASPIRIN COATED 81 MG TABLET.EC PO SCH (17:39)
[2019-07-05] MEDS: HEPARIN NA (PORCINE) 5,000 UNITS/ML 1ML VIAL SQ SCH (17:39)
[2019-07-05] MEDS ORDERED: cefTRIAXone SODIUM 1 GM VIAL ONE (20:49)
[2019-07-05] MEDS ORDERED: DEXTROSE 5%-WATER - 50 ML IVPB ONE (20:50)
[2019-07-05] MEDS: ATORVASTATIN CA 80 MG TABLET (FP) PO SCH (22:08)
[2019-07-05] MEDS: NIFEdipine E.R 60 MG TABLET PO SCH (22:08)
[2019-07-06] MEDS: HEPARIN NA (PORCINE) 5,000 UNITS/ML 1ML VIAL SQ SCH ×3 (04:06→18:17)
[2019-07-06] MEDS: INSULIN SLIDING SCALE (NOVOLOG) 1 VIAL SQ SCH ×4 (06:12→22:45)
[2019-07-06] MEDS ORDERED: cefTRIAXone SODIUM 1 GM VIAL ONE (06:18)
[2019-07-06] MEDS ORDERED: DEXTROSE 5%-WATER - 50 ML IVPB ONE (06:19)
[2019-07-06] MEDS: CEFTRIAXONE 1 GM in DEXTROSE 5%-WATER - 50 ML IVPB SCH ×2 (06:22→12:16)
[2019-07-06 06:56] LABS: HEMOGLOBIN 11.6 GM/dL (10.7-15.3); MCH 27.6 pg (25.7-33.7); MEAN CELL VOLUME 83.4 fl (80-96); MEAN PLT VOLUME 9.4 fl (7.5-11.1); PLATELET COUNT 210 K/MM3 (134-434); RDW 14.3 % (11.6-15.6); WHITE BLOOD COUNT 6.6 K/mm3 (4.0-10.0)
[2019-07-06 07:26] LABS: BLOOD UREA NITROGEN 21.1 mg/dL (7-18); CALCIUM 9.4 mg/dL (8.5-10.1); CREATININE 1.1 mg/dL (0.55-1.3); POTASSIUM 3.7 mmol/L (3.5-5.1)
--- NOTE | 2019-07-06 09:51 | EKG ---
Test Reason : Blood Pressure : / mmHG Vent. Rate : 054 BPM Atrial Rate : 054 BPM P-R Int : 188 ms QRS Dur : 076 ms QT Int : 456 ms P-R-T Axes : 039 -08 071 degrees QTc Int : 432 ms SINUS BRADYCARDIA SEPTAL INFARCT (CITED ON OR BEFORE 16-AUG-2011) ABNORMAL ECG Confirmed by Tawanda De La Garza MD ([id number]) on 07/06/2019 9:50:59 AM Referred By: Confirmed By:Tawanda De La Garza MD
--- NOTE | 2019-07-06 12:10 | PN ---
Physical Exam: SUBJECTIVE: Patient seen and examined. She is minimally arousable. Her reports the she was awake and confused overnight, but has been sleeping and difficult to arouse. OBJECTIVE: Vital Signs Period Temp Pulse Resp BP Sys/Laureano Pulse Ox Last 24 Hr 97.6 F-98.1 F 52-61 13-19 98-227/51-96 98-100 GENERAL: Sleeping, difficult to arouse, and confused, in no acute distress. LUNGS: Breath sounds equal, clear to auscultation bilaterally. No wheezes, and no crackles. No accessory muscle use. HEART: Regular rhythm, bradycardic, normal S1 and S2 without murmur, rub or gallop. ABDOMEN: Soft, nontender, not distended, normoactive bowel sounds, no guarding, no rebound, no masses. No hepatomegaly or splenomegaly. EXTREMITIES: 2+ pulses, warm, well-perfused. No calf tenderness. No peripheral edema. NEUROLOGICAL: Unable to assess as patient cannot cooperate. (+) right facial weakness. Laboratory Results - last 24 hr 07/05/19 07/05/19 07/05/19 14:20 14:20 14:20 WBC 5.9 RBC 4.16 Hgb 11.4 Hct 35.2 MCV 84.6 MCH 27.4 MCHC 32.4 RDW 14.5 Plt Count 203 MPV 9.7 Absolute Neuts (auto) 3.4 Neutrophils % 57.1 Lymphocytes % 28.8 Monocytes % 10.0 Eosinophils % 2.8 Basophils % 1.3 Nucleated RBC % 0 PT with INR INR PTT (Actin FS) Sodium 144 Potassium 4.2 Chloride 111 H Carbon Dioxide 28 Anion Gap 5 L BUN 23.7 H Creatinine 1.2 Est GFR (CKD-EPI)AfAm 52.29 Est GFR (CKD-EPI)NonAf 45.11 POC Glucometer Random Glucose 140 H Hemoglobin A1c % 7.6 H Calcium 9.0 Phosphorus 3.7 Magnesium 2.1 Total Bilirubin 0.3 AST 15 ALT 14 Alkaline Phosphatase 69 Creatine Kinase 70 Troponin I < 0.02 Total Protein 6.8 Albumin 3.4 Triglycerides 134 Cholesterol 187 Total LDL Cholesterol 114 H HDL Cholesterol 46 TSH 0.38 Urine Color Urine Appearance Urine pH Ur Specific [place] Urine Protein Urine Glucose (UA) Urine Ketones Urine Blood Urine Nitrite Urine Bilirubin Urine Urobilinogen Ur Leukocyte Esterase Urine WBC (Auto) Urine RBC (Auto) Urine Casts (Auto) U Epithel Cells (Auto) Urine Bacteria (Auto) 07/05/19 07/05/19 07/05/19 14:20 17:38 21:59 WBC RBC Hgb Hct MCV MCH MCHC RDW Plt Count MPV Absolute Neuts (auto) Neutrophils % Lymphocytes % Monocytes % Eosinophils % Basophils % Nucleated RBC % PT with INR 13.60 H INR 1.15 H PTT (Actin FS) 34.6 Sodium Potassium Chloride Carbon Dioxide Anion Gap BUN Creatinine Est GFR (CKD-EPI)AfAm Est GFR (CKD-EPI)NonAf POC Glucometer 65 178 Random Glucose Hemoglobin A1c % Calcium Phosphorus Magnesium Total Bilirubin AST ALT Alkaline Phosphatase Creatine Kinase Troponin I Total Protein Albumin Triglycerides Cholesterol Total LDL Cholesterol HDL Cholesterol TSH Urine Color Urine Appearance Urine pH Ur Specific [place] Urine Protein Urine Glucose (UA) Urine Ketones Urine Blood Urine Nitrite Urine Bilirubin Urine Urobilinogen Ur Leukocyte Esterase Urine WBC (Auto) Urine RBC (Auto) Urine Casts (Auto) U Epithel Cells (Auto) Urine Bacteria (Auto) 07/05/19 07/06/19 07/06/19 Unknown 06:11 06:20 WBC RBC Hgb Hct MCV MCH MCHC RDW Plt Count MPV Absolute Neuts (auto) Neutrophils % Lymphocytes % Monocytes % Eosinophils % Basophils % Nucleated RBC % PT with INR INR PTT (Actin FS) Sodium 141 Potassium 3.7 Chloride 107 Carbon Dioxide 27 Anion Gap 7 L BUN 21.1 H Creatinine 1.1 Est GFR (CKD-EPI)AfAm 58.09 Est GFR (CKD-EPI)NonAf 50.12 POC Glucometer 110 Random Glucose 112 H Hemoglobin A1c % Calcium 9.4 Phosphorus Magnesium Total Bilirubin AST ALT Alkaline Phosphatase Creatine Kinase Troponin I Total Protein Albumin Triglycerides Cholesterol Total LDL Cholesterol HDL Cholesterol TSH Urine Color Yellow Urine Appearance Clear Urine pH 6.0 Ur Specific [place] 1.019 Urine Protein Negative Urine Glucose (UA) Negative Urine Ketones Negative Urine Blood Negative Urine Nitrite Negative Urine Bilirubin Negative Urine Urobilinogen 0.2 Ur Leukocyte Esterase 2+ H Urine WBC (Auto) 16 Urine RBC (Auto) 2 Urine Casts (Auto) 2 U Epithel Cells (Auto) 2.6 Urine Bacteria (Auto) 19.8 07/06/19 06:20 WBC 6.6 RBC 4.20 Hgb 11.6 Hct 35.0 MCV 83.4 MCH 27.6 MCHC 33.0 RDW 14.3 Plt Count 210 MPV 9.4 Absolute Neuts (auto) Neutrophils % Lymphocytes % Monocytes % Eosinophils % Basophils % Nucleated RBC % PT with INR INR PTT (Actin FS) Sodium Potassium Chloride Carbon Dioxide Anion Gap BUN Creatinine Est GFR (CKD-EPI)AfAm Est GFR (CKD-EPI)NonAf POC Glucometer Random Glucose Hemoglobin A1c % Calcium Phosphorus Magnesium Total Bilirubin AST ALT Alkaline Phosphatase Creatine Kinase Troponin I Total Protein Albumin Triglycerides Cholesterol Total LDL Cholesterol HDL Cholesterol TSH Urine Color Urine Appearance Urine pH Ur Specific [place] Urine Protein Urine Glucose (UA) Urine Ketones Urine Blood Urine Nitrite Urine Bilirubin Urine Urobilinogen Ur Leukocyte Esterase Urine WBC (Auto) Urine RBC (Auto) Urine Casts (Auto) U Epithel Cells (Auto) Urine Bacteria (Auto) Active Medications Generic Name Dose Route Start Last Admin Trade Name Freq PRN Reason Stop Dose Admin Aspirin 81 mg 07/05/19 16:45 07/05/19 17:39 Ecotrin - PO 81 mg DAILY BRYANT Administration Atorvastatin Calcium 80 mg 07/05/19 22:00 07/05/19 22:08 Lipitor - PO 80 mg HS BRYANT Administration HCTZ/Losartan Potassium 2 tab 07/06/19 10:00 Hyzaar - PO DAILY BRY[facility] Heparin Sodium (Porcine) 5,000 unit 07/05/19 18:00 07/06/19 10:53 Heparin - SQ 5,000 unit Q8H-IV BR[facility] Administration Ceftriaxone Sodium 1 gm/ 50 mls @ 100 mls/hr 07/05/19 19:00 07/06/19 06:22 Dextrose IVPB 100 mls/hr DAILY BRY[facility] Administration Protocol Insulin Aspart 1 vial 07/05/19 16:30 07/06/19 06:12 Novolog Vial Sliding Scale - SQ Not Given ACHS BRYANT Protocol Metoprolol Succinate 50 mg 07/05/19 22:00 07/05/19 22:08 Toprol Xl - PO 50 mg BID BRYANT Administration Nifedipine 60 mg 07/05/19 22:00 07/05/19 22:08 Procardia Xl - PO 60 mg BID BRYANT Administration ASSESSMENT/PLAN: This is a 73 year old woman with a history of HTN, hyperlipidemia, CAD with stent, type 2 DM who presented to the ED with slurred speech and confusion. 1. Acute encephalopathy - Possibly hypertensive - Possibly secondary to TIA/CVA - Possibly metabolic secondary to UTI - Mental status appears to wax and wane - Will repeat head CT now and check fingerstick, BMP, ammonia level, ABG - Continue aspirin, Lipitor, ceftriaxone - Urine culture pending - MRI of brain ordered - Carotid doppler shows mild intimal thickening and very minimal plaque buildup in distal common carotid and bifurcation bilaterally - Echocardiogram ordered - Blood pressure control - Swallow eval pending - PT eval pending 2. HTN, uncontrolled, with hypertensive emergency - Lopressor, labetalol given in ED - Continue Procardia XL, Toprol XL, Cozaar, HCTZ - Echocardiogram 3. Sinus bradycardia - Decrease Toprol XL and Procardia XL to daily 3. Hyperlipidemia - Continue Lipitor 4. CAD, history of stent - Continue aspirin, Toprol XL, Lipitor 5. Type 2 DM - HbA1c 7.6 - Continue to hold metformin - Continue Novolog sliding scale 6. DVT prophylaxis - Heparin subq Visit type - Emergency Visit Emergency Visit: Yes ED Registration Date: 07/05/19 Care time: The patient presented to the Emergency Department on the above date and was hospitalized for further evaluation of their emergent condition. - New Patient This patient is new to me today: No - Critical Care Critical Care patient: No - Discharge Referral Referred to [facility] Med P.C.: No
[2019-07-06 13:37] LABS: ARTERIAL BLD GAS O2 SATURATION 95.2 % (95-98); ARTERIAL BLOOD GAS BASE EXCESS 4.1 meq/l (-2-2); ARTERIAL BLOOD GAS PO2 75.9 mmHg (80-100); ARTERIAL BLOOD GAS pH 7.43 (7.35-7.45)
[2019-07-06 13:38] LABS: ALLENS TEST POSITIVE
[2019-07-06 14:08] LABS: BLOOD UREA NITROGEN 19.5 mg/dL (7-18); CALCIUM 8.8 mg/dL (8.5-10.1); POTASSIUM 3.8 mmol/L (3.5-5.1)
[2019-07-06] MEDS: NIFEdipine E.R 60 MG TABLET PO SCH (14:10)
[2019-07-06] MEDS: LOSARTAN 50MG/HCTZ 12.5MG 1 TAB (FP) PO SCH (14:47)
[2019-07-06] MEDS: ASPIRIN COATED 81 MG TABLET.EC PO SCH (14:47)
--- NOTE | 2019-07-06 14:57 | PN ---
Progress Note, Physician History of Present Illness: eevents noted chart review at seen on the telemetry stroke unit Slightly lethargic daughters at the bedside CAT scan confirmed the presence of left MCA distribution stroke with no evidence of bleed Eating lunch no difficulty swallowing - Current Medication List Current Medications: Active Medications Aspirin (Ecotrin -) 81 mg PO DAILY [facility] Last Admin: 07/06/19 14:47 Dose: 81 mg Documented by: Atorvastatin Calcium (Lipitor -) 80 mg PO HS [facility] Last Admin: 07/05/19 22:08 Dose: 80 mg Documented by: HCTZ/Losartan Potassium (Hyzaar -) 2 tab PO DAILY [facility] Last Admin: 07/06/19 14:47 Dose: 2 tab Documented by: Heparin Sodium (Porcine) (Heparin -) 5,000 unit SQ Q8H-IV [facility] Last Admin: 07/06/19 10:53 Dose: 5,000 unit Documented by: Ceftriaxone Sodium 1 gm/ (Dextrose) 50 mls @ 100 mls/hr IVPB DAILY [facility]; Protoco l Last Admin: 07/06/19 12:16 Dose: Not Given Documented by: Insulin Aspart (Novolog Vial Sliding Scale -) 1 vial SQ ACHS BRYANT; Protocol Last Admin: 07/06/19 12:17 Dose: Not Given Documented by: Metoprolol Succinate (Toprol Xl -) 50 mg PO DAILY [facility] Nifedipine (Procardia Xl -) 60 mg PO DAILY [facility] - Objective Vital Signs: Vital Signs Temperature 97.7 F 07/06/19 09:43 Pulse Rate 57 L 07/06/19 09:43 Respiratory Rate 16 07/06/19 09:43 Blood Pressure 121/51 L 07/06/19 09:43 O2 Sat by Pulse Oximetry (%) 100 07/05/19 21:00 Constitutional: Yes: Well Nourished Eyes: Yes: WNL HENT: Yes: WNL Neurological: Yes: Alert, Oriented, Babinski positive, Babinski negative ...Motor Strength: WNL Labs: CBC, BMP 07/06/19 06:20 07/06/19 13:30 INR, PTT INR 1.15 (0.83-1.09) H 07/05/19 14:20 Problem List - Problems (1) CVA (cerebral vascular accident) Code(s): I63.9 - CEREBRAL INFARCTION, UNSPECIFIED Assessment/Plan 1. MRI of the brain with no contrast. 2 tigt blood sugar control 3. Physical therapy
[2019-07-06] MEDS: ATORVASTATIN CA 80 MG TABLET (FP) PO SCH (22:46)
[2019-07-07] MEDS: HEPARIN NA (PORCINE) 5,000 UNITS/ML 1ML VIAL SQ SCH ×3 (01:23→17:26)
[2019-07-07] MEDS ORDERED: HALOPERIDOL LACTATE 5 MG/ML IM ONE (02:23)
[2019-07-07] MEDS: INSULIN SLIDING SCALE (NOVOLOG) 1 VIAL SQ SCH ×4 (06:11→22:01)
--- NOTE | 2019-07-07 08:13 | PN ---
Progress Note, Physician Chief Complaint: Admitted 07/04 with slurred spech, confusion. XT head showed interval development low-attenuation density in the left thalamus anteriorly c/w an acute/subacute infarct. Seen by Dr Hoover neurology. Today confused in bed, at bedside. History of Present Illness: DM type 2 not well controlled HTN MNG HLD OA LEFT Breast CA/lumpectomy - Current Medication List Current Medications: Active Medications Aspirin (Ecotrin -) 81 mg PO DAILY [facility] Last Admin: 07/06/19 14:47 Dose: 81 mg Documented by: Atorvastatin Calcium (Lipitor -) 80 mg PO HS [facility] Last Admin: 07/06/19 22:46 Dose: 80 mg Documented by: HCTZ/Losartan Potassium (Hyzaar -) 2 tab PO DAILY [facility] Last Admin: 07/06/19 14:47 Dose: 2 tab Documented by: Heparin Sodium (Porcine) (Heparin -) 5,000 unit SQ Q8H-IV [facility] Last Admin: 07/07/19 01:23 Dose: 5,000 unit Documented by: Ceftriaxone Sodium 1 gm/ (Dextrose) 50 mls @ 100 mls/hr IVPB DAILY [facility]; Protocol Last Admin: 07/06/19 12:16 Dose: Not Given Documented by: Insulin Aspart (Novolog Vial Sliding Scale -) 1 vial SQ ACHS [facility]; Protocol Last Admin: 07/07/19 06:11 Dose: Not Given Documented by: Metoprolol Succinate (Toprol Xl -) 50 mg PO DAILY [facility] Nifedipine (Procardia Xl -) 60 mg PO BID [facility] - Objective Vital Signs: Vital Signs Temperature 98.2 F 07/07/19 06:17 Pulse Rate 62 07/07/19 06:17 Respiratory Rate 18 07/07/19 06:17 Blood Pressure 178/74 H 07/07/19 06:17 O2 Sat by Pulse Oximetry (%) 99 07/06/19 20:55 Constitutional: Yes: No Distress, Calm Eyes: Yes: Conjunctiva Clear, EOM Intact HENT: Yes: Atraumatic, Normocephalic Neck: Yes: Supple, Trachea Midline Cardiovascular: Yes: Regular Rate and Rhythm, S1, S2. No: Bradycardia, Tachycardia Respiratory: Yes: Regular, CTA Bilaterally Gastrointestinal: Yes: Normal Bowel Sounds, Soft. No: Abdomen, Obese, Ascites, Pulsatile Mass, Vomiting Genitourinary: No: Anuria, Bladder Distention, CVA Tenderness - Left, CVA Tenderness - Right Breast(s): Yes: Left (previous CA) Musculoskeletal: No: Joint Swelling Extremities: No: Amputation, Calf Tenderness, Cold, Cyanosis Edema: No Integumentary: No: Body Piercing, Bruising Neurological: Yes: Alert, Lethargy. No: Aphasia, Dysarthria ...Motor Strength: WNL Psychiatric: Yes: WNL Labs: CBC, BMP 07/06/19 06:20 07/06/19 13:30 INR, PTT INR 1.15 (0.83-1.09) H 07/05/19 14:20 - ....Imaging Cat Scan: Report Reviewed Problem List - Problems (1) CVA (cerebral vascular accident) Assessment/Plan: MRI-pending Carotid US-neg Neuro F/u Code(s): I63.9 - CEREBRAL INFARCTION, UNSPECIFIED Qualifiers: CVA mechanism: thrombosis Precerebral and cerebral artery: middle cerebral artery Laterality of affected vessel: left Qualified Code(s): I63.312 - Cerebral infarction due to thrombosis of left middle cerebral artery (2) Diabetes mellitus type 2 with complications Assessment/Plan: Follow BGM Insulin coverage and basal. Diet ADA Code(s): E11.8 - TYPE 2 DIABETES MELLITUS WITH UNSPECIFIED COMPLICATIONS (3) HLD (hyperlipidemia) Assessment/Plan: Lipitor 80 mg QD Code(s): E78.5 - HYPERLIPIDEMIA, UNSPECIFIED Qualifiers: Hyperlipidemia type: mixed hyperlipidemia Qualified Code(s): E78.2 - Mixed hyperlipidemia (4) HTN (hypertension) Assessment/Plan: Hyzaar 100/25 QD Procardia XL 60 BID Follow BP K repletion Code(s): I10 - ESSENTIAL (PRIMARY) HYPERTENSION Qualifiers: Hypertension type: essential hypertension Qualified Code(s): I10 - Essential (primary) hypertension
[2019-07-07] MEDS ORDERED: MAGNESIUM HYDROX 2400MG/30ML ORAL SUSPENSION 30 ML CUP PO ONE (08:24)
[2019-07-07] MEDS ORDERED: MAG HYDROX/AL HYDROX/SIMETH -MYLANTA- ORAL SUSPENSION PO PRN (08:24)
[2019-07-07] MEDS ORDERED: MAG HYDROX/AL HYDROX/SIMETH 30 ML UNIT-DOSE CUP PO PRN (08:32)
--- NOTE | 2019-07-07 09:11 | CON.CARD ---
Consult Consult Specialty:: Cardiology - History of Present Illness History of Present Illness: This is a 73 year old woman with a history of HTN, hyperlipidemia, CAD PCI stent 2 years ago probably LHH (noncomplient with DAPT ASA), type 2 DM who was brought in to the ED by EMS today because of slurred speech. The patient is awake and alert but confused and unable to provide much history. She says she does not remember anything that happened yesterday or today. The patietn's daughter states that she was well around 9 am. She went out, and when she came home around 12 noon, she noticed that her mother's speech was slurred. She also noticed weakness of the left side of her face. The patient then became confused and began speaking slowly. EMS was called and she was brought into the ED. The patient's daughter reports that she has not been taking her medications for some time. She has not been on aspirin or Plavix. 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 No: AFIB, CHF, Deep Vein Thrombosis Endocrine: Yes: Diabetes Mellitus. No: Wirt's Disease, [place]'s Disease, Diabetes Insipidus, Hyperparathyroidism, Hyperthyroidism, Hypothyroidism, Osteopenia, SIADH, Other - Past Surgical History Past Surgical History: Yes: Breast Biopsy. No: AAA Repair, AICD, AV Fistula/Graft, Bypass - Alcohol/Substance Use Hx Alcohol Use: No - Smoking History Smoking history: Never smoked Have you smoked in the past 12 months: No Aproximately how many cigarettes per day: 0 - Social History Usual Living Arrangement: With Spouse ADL: Independent History of Recent Travel: No Home Medications - Allergies Allergies/Adverse Reactions: Allergies Allergy/AdvReac Type Severity Reaction Status Date / Time No Known Allergies Allergy Verified 07/05/19 14:27 - Home Medications Home Medications: Ambulatory Orders Losartan/Hydrochlorothiazide [Losartan-Hctz 100-25 mg Tab] 1 each PO DAILY 08/30/16 Atorvastatin Calcium 40 mg PO HS 07/05/19 Metformin HCl [Glucophage] 1,000 mg PO DAILY 07/05/19 Metoprolol Succinate 50 mg PO BID 07/05/19 Nifedipine [Nifedipine ER] 60 mg PO BID 07/05/19 Review of Systems - Review of Systems Constitutional: reports: No Symptoms Eyes: reports: No Symptoms HENT: reports: No Symptoms Neck: reports: No Symptoms Cardiovascular: reports: No Symptoms Gastrointestinal: reports: No Symptoms Genitourinary: reports: No Symptoms Breasts: reports: No Symptoms Reported Musculoskeletal: reports: No Symptoms Integumentary: reports: No Symptoms Neurological: reports: Change in Speech Endocrine: reports: No Symptoms Hematology/Lymphatic: reports: No Symptoms Psychiatric: reports: No Symptoms Vital Signs: Vital Signs Temperature 98.2 F 07/07/19 06:17 Pulse Rate 62 07/07/19 06:17 Respiratory Rate 18 07/07/19 06:17 Blood Pressure 178/74 H 07/07/19 06:17 O2 Sat by Pulse Oximetry (%) 99 07/06/19 20:55 Constitutional: Yes: Well Nourished, No Distress, Calm Eyes: Yes: WNL, Conjunctiva Clear, EOM Intact HENT: Yes: WNL, Atraumatic, Normocephalic Neck: Yes: WNL, Supple, Trachea Midline Respiratory: Yes: WNL, Regular, CTA Bilaterally Gastrointestinal: Yes: WNL, Normal Bowel Sounds Renal/: Yes: WNL Cardiovascular: Yes: WNL, Regular Rate and Rhythm Musculoskeletal: Yes: WNL Extremities: Yes: WNL Integumentary: Yes: WNL ...Motor Strength: WNL Psychiatric: Yes: WNL, Alert, Oriented - Other Data Labs, Other Data: CBC, BMP 07/06/19 06:20 07/06/19 13:30 INR, PTT INR 1.15 (0.83-1.09) H 07/05/19 14:20 Imaging - Results Chest X-ray: Pending EKG: Image Reviewed (s rui old anterio septal NM) Problem List - Problems (1) CVA (cerebral vascular accident) Code(s): I63.9 - CEREBRAL INFARCTION, UNSPECIFIED Qualifiers: CVA mechanism: thrombosis Precerebral and cerebral artery: middle cerebral artery Laterality of affected vessel: left Qualified Code(s): I63.312 - Cerebral infarction due to thrombosis of left middle cerebral artery (2) Ischemic stroke Code(s): I63.9 - CEREBRAL INFARCTION, UNSPECIFIED (3) Transient ischemic attack Code(s): G45.9 - TRANSIENT CEREBRAL ISCHEMIC ATTACK, UNSPECIFIED (4) Atypical chest pain Code(s): R07.89 - OTHER CHEST PAIN (5) Chest pain Code(s): R07.9 - CHEST PAIN, UNSPECIFIED (6) Diabetes mellitus type 2 with complications Code(s): E11.8 - TYPE 2 DIABETES MELLITUS WITH UNSPECIFIED COMPLICATIONS (7) HLD (hyperlipidemia) Code(s): E78.5 - HYPERLIPIDEMIA, UNSPECIFIED Qualifiers: Hyperlipidemia type: mixed hyperlipidemia Qualified Code(s): E78.2 - Mixed hyperlipidemia (8) HTN (hypertension) Code(s): I10 - ESSENTIAL (PRIMARY) HYPERTENSION Qualifiers: Hypertension type: essential hypertension Qualified Code(s): I10 - Essential (primary) hypertension (9) Hyperkalemia Code(s): E87.5 - HYPERKALEMIA (10) Hypokalemia due to loss of potassium Code(s): E87.6 - HYPOKALEMIA (11) Pain of left calf Code(s): M79.662 - PAIN IN LEFT LOWER LEG (12) Shortness of breath Code(s): R06.02 - SHORTNESS OF BREATH Assessment/Plan 73 year old woman with a history of HTN, hyperlipidemia, CAD, type 2 DM admitted with thalamic CVA. Plan; Telemetry echo check lipids keep LDL below 70 ASA c.duplex BP control
--- NOTE | 2019-07-07 09:52 | CONSULT ---
Admitting History and Physical - Admission History of Present Illness: 73 year old woman with a history of HTN, hyperlipidemia, CAD with stent, type 2 DM who presented to the ED with slurred speech and confusion. CAT scan -left MCA distribution stroke with no evidence of [id number]-[id number] density in the left thalamus anteriorly Pt has been confused, agitated.Per note, Haldol given this am. Chart reviewed,limited assessment. Lethargic. Just returned from MRI. Vomited eggs,oatmeal, medication. To reassess when more alert Consider npo if too lethargic Selected Entries 07/05/19 07/05/19 07/05/19 14:05 16:15 17:45 Diet Tolerated Supper Temperature 98.1 F 98.1 F 97.6 F 07/05/19 07/05/19 07/05/19 19:03 22:02 22:14 Diet Tolerated Well Supper 100% Temperature 97.6 F 97.8 F 07/06/19 07/06/19 07/06/19 01:33 06:32 09:43 Diet Tolerated Supper Temperature 97.7 F 98.1 F 97.7 F 07/06/19 07/06/19 07/06/19 15:00 18:00 21:00 Diet Tolerated Supper Temperature 98.9 F 98.6 F 98.6 F 07/06/19 07/07/19 07/07/19 22:14 02:18 06:17 Diet Tolerated Fair Supper 75% Temperature 98.0 F 98.2 F Laboratory Tests 07/05/19 07/06/19 14:20 06:20 WBC 5.9 6.6 - Past Medical History 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 No: AFIB, CHF, Deep Vein Thrombosis Heme/Onc: Yes: Cancer Endocrine: Yes: Diabetes Mellitus. No: [place]'s Disease, Sandy's Disease, Diabetes Insipidus, Hyperparathyroidism, Hyperthyroidism, Hypothyroidism, Osteopenia, SIADH, Other - Past Surgical History Past Surgical History: Yes: Breast Biopsy. No: AAA Repair, AICD, AV Fistula/Graft, Bypass - Smoking History Smoking history: Never smoked Have you smoked in the past 12 months: No Aproximately how many cigarettes per day: 0 - Alcohol/Substance Use Hx Alcohol Use: No - Social History ADL: Independent History of Recent Travel: No History - Admission Reason For Visit: CVA - Hearing Hearing: Normal Speech Evaluation - Communication Primary Language: NORWEGI[place]
[2019-07-07] MEDS ORDERED: NIFEdipine E.R 60 MG TABLET PO SCH (10:00)
[2019-07-07] MEDS: NIFEdipine E.R 60 MG TABLET PO SCH ×2 (10:21→22:02)
[2019-07-07] MEDS: ASPIRIN COATED 81 MG TABLET.EC PO SCH (10:21)
[2019-07-07] MEDS: LOSARTAN 50MG/HCTZ 12.5MG 1 TAB (FP) PO SCH (10:21)
[2019-07-07] MEDS: POLYETHYLENE GLYCOL 3350 119 GM BTL PO SCH ×2 (10:24→22:01)
[2019-07-07] MEDS ORDERED: ENALAPRILAT DIHYDRATE 2.5 MG/2 ML VIAL IVPB PRN (11:17)
[2019-07-07 12:38] VITALS: BMI 22.9
--- NOTE | 2019-07-07 16:15 | CON.GI ---
Consult Consult Specialty:: GI Referred by:: Medicine Reason for Consultation:: emesis - History of Present Illness Chief Complaint: slurred speech History of Present Illness: 73F with h/o HTN, HL, CAD, admitted with slurred speech, found to have acute MCA stroke. GI consulted for vomiting x2 this am, after food intake of eggs and oatmeal. Family at bedside also report she has been rubbing lower abdomen, ? pain. Vomiting was food contents. NO GI bleeding. 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 No: AFIB, CHF, Deep Vein Thrombosis Endocrine: Yes: Diabetes Mellitus. No: [place]'s Disease, Sandy's Disease, Diabetes Insipidus, Hyperparathyroidism, Hyperthyroidism, Hypothyroidism, Osteopenia, SIADH, Other - Past Surgical History Past Surgical History: Yes: Breast Biopsy. No: AAA Repair, AICD, AV Fistula/Graft, Bypass - Alcohol/Substance Use Hx Alcohol Use: No - Smoking History Smoking history: Never smoked Have you smoked in the past 12 months: No Aproximately how many cigarettes per day: 0 - Social History Usual Living Arrangement: With Spouse ADL: Independent History of Recent Travel: No Home Medications - Allergies Allergies/Adverse Reactions: Allergies Allergy/AdvReac Type Severity Reaction Status Date / Time No Known Allergies Allergy Verified 07/05/19 14:27 - Home Medications Home Medications: Ambulatory Orders Losartan/Hydrochlorothiazide [Losartan-Hctz 100-25 mg Tab] 1 each PO DAILY 08/30/16 Atorvastatin Calcium 40 mg PO HS 07/05/19 Metformin HCl [Glucophage] 1,000 mg PO DAILY 07/05/19 Metoprolol Succinate 50 mg PO BID 07/05/19 Nifedipine [Nifedipine ER] 60 mg PO BID 07/05/19 Family Medical History Family History: Unable to Obtain Review of Systems Unable to obtain ROS, reason: altered mental status Physical Exam-GI Vital Signs: Vital Signs Temperature 98.2 F 07/07/19 14:00 Pulse Rate 80 07/07/19 14:00 Respiratory Rate 18 07/07/19 14:00 Blood Pressure 150/80 07/07/19 14:00 O2 Sat by Pulse Oximetry (%) 96 07/07/19 09:00 Constitutional: Yes: Well Nourished, No Distress Eyes: Yes: Conjunctiva Clear Cardiovascular: Yes: Regular Rate and Rhythm Respiratory: Yes: CTA Bilaterally ...Palpate: Yes: Soft, Tenderness (LLQ) ...Rectal Exam: Yes: Deferred Neurological: Yes: Alert. No: Oriented Psychiatric: Yes: Alert. No: Oriented Labs: CBC, BMP 07/06/19 06:20 07/06/19 13:30 INR, PTT INR 1.15 (0.83-1.09) H 07/05/19 14:20 Hepatic Panel Total Bilirubin 0.3 mg/dL (0.2-1) 07/05/19 14:20 AST 15 U/L (15-37) 07/05/19 14:20 ALT 14 U/L (13-61) 07/05/19 14:20 Alkaline Phosphatase 69 U/L (45-117) 07/05/19 14:20 Albumin 3.4 g/dl (3.4-5.0) 07/05/19 14:20 Imaging - Results X-ray: Report Reviewed Assessment/Plan 1-2 episodes of emesis this am, unclear etiology Patient ate without issue yesterday Would monitor sx for now, trial anti-emetics Further work up pending clinical course
[2019-07-07] MEDS ORDERED: PT OWN MED DRAWER 7, Y5N ONE (16:38)
--- NOTE | 2019-07-07 17:55 | PN ---
Progress Note, Physician History of Present Illness: events noted Cahrt reviwed Alert awake less very lethergic follwos commands Cant open eyes - Current Medication List Current Medications: Active Medications Al Hydroxide/Mg Hydroxide (Mylanta Oral Suspension -) 30 ml PO Q6H PRN PRN Reason: DYSPEPSIA Aspirin (Ecotrin -) 81 mg PO DAILY [facility] Last Admin: 07/07/19 10:21 Dose: 81 mg Documented by: Atorvastatin Calcium (Lipitor -) 80 mg PO HS [facility] Last Admin: 07/06/19 22:46 Dose: 80 mg Documented by: Enalaprilat (Vasotec Injection -) 2.5 mg IVPB Q12H PRN PRN Reason: SBP > 150 HCTZ/Losartan Potassium (Hyzaar -) 2 tab PO DAILY [facility] Last Admin: 07/07/19 10:21 Dose: 2 tab Documented by: Heparin Sodium (Porcine) (Heparin -) 5,000 unit SQ Q8H-IV [facility] Last Admin: 07/07/19 17:26 Dose: 5,000 unit Documented by: Insulin Aspart (Novolog Vial Sliding Scale -) 1 vial SQ [facility]; Protocol Last Admin: 07/07/19 16:37 Dose: Not Given Documented by: Lorazepam (Ativan Injection -) 0.5 mg IM ONCE ONE Stop: 07/07/19 12:01 Metoprolol Succinate (Toprol Xl -) 50 mg PO DAILY [facility] Last Admin: 07/07/19 10:21 Dose: 50 mg Documented by: Nifedipine (Procardia Xl -) 60 mg PO BID [facility] Last Admin: 07/07/19 10:21 Dose: 60 mg Documented by: Polyethylene Glycol (Miralax (For Daily Use) -) 17 gm PO BID [facility] Last Admin: 07/07/19 10:24 Dose: 17 gm Documented by: - Objective Vital Signs: Vital Signs Temperature 98.2 F 07/07/19 14:00 Pulse Rate 80 07/07/19 14:00 Respiratory Rate 18 07/07/19 14:00 Blood Pressure 150/80 07/07/19 14:00 O2 Sat by Pulse Oximetry (%) 96 07/07/19 09:00 Constitutional: Yes: Well Nourished Eyes: Yes: WNL ...Motor Strength: WNL Labs: CBC, BMP 07/06/19 06:20 07/06/19 13:30 INR, PTT INR 1.15 (0.83-1.09) H 07/05/19 14:20 Problem List - Problems (1) CVA (cerebral vascular accident) Assessment/Plan: mRI brain now Monitor temp Aspiration precaution Tight BP control Code(s): I63.9 - CEREBRAL INFARCTION, UNSPECIFIED Qualifiers: CVA mechanism: thrombosis Precerebral and cerebral artery: middle cerebral artery Laterality of affected vessel: left Qualified Code(s): I63.312 - Cerebral infarction due to thrombosis of left middle cerebral artery
[2019-07-07] MEDS ORDERED: LORazepam 2 MG/ML SDV VIAL IM ONE (18:15)
[2019-07-07] MEDS: ATORVASTATIN CA 80 MG TABLET (FP) PO SCH (22:01)
[2019-07-08] MEDS: HEPARIN NA (PORCINE) 5,000 UNITS/ML 1ML VIAL SQ SCH ×3 (02:43→17:07)
[2019-07-08] MEDS: INSULIN SLIDING SCALE (NOVOLOG) 1 VIAL SQ SCH ×4 (06:09→22:25)
[2019-07-08 07:03] LABS: ALBUMIN 3.6 g/dl (3.4-5.0); BILIRUBIN,TOTAL 0.8 mg/dL (0.2-1); BLOOD UREA NITROGEN 34.2 mg/dL (7-18); CALCIUM 9.3 mg/dL (8.5-10.1); CREATININE 2.2 mg/dL (0.55-1.3); POTASSIUM 3.6 mmol/L (3.5-5.1); TOT PROT 7.1 g/dl (6.4-8.2)
--- NOTE | 2019-07-08 10:35 | PN ---
Progress Note, BEATER BOSS - Note Progress Note: mri- left ant thalamic infart.
--- NOTE | 2019-07-08 11:12 | CONSULT ---
Admitting History and Physical - Primary Care Physician PCP: Glenroy Cruz - Admission History of Present Illness: 73 year old woman with a history of HTN, hyperlipidemia, CAD with stent, type 2 DM who presented to the ED with slurred speech and confusion. CAT scan -left MCA distribution stroke with no evidence of [id number]-[id number] density in the left thalamus anteriorly Pt became confused, agitated, given Haldol.Seen yesterday but she was lethargic with vomiting x 2. mri- left ant thalamic infarct. Seen today for re-evaluation. Pt's daughter present. Premorbidly,pt was verbal, independent, occasionally forgetful. 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 No: AFIB, CHF, Deep Vein Thrombosis Heme/Onc: Yes: Cancer Endocrine: Yes: Diabetes Mellitus. No: [place]'s Disease, [place]'s Disease, Diabetes Insipidus, Hyperparathyroidism, Hyperthyroidism, Hypothyroidism, Osteopenia, SIADH, Other - Past Surgical History Past Surgical History: Yes: Breast Biopsy. 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 History of Recent Travel: No History - Admission Reason For Visit: CVA - Diagnostics X-ray: Report Reviewed CT Scan: Report Reviewed MRI: Report Reviewed - General Mental Status: Awake and Alert, Forgetful, Vague, Confused, Flat Affect Attention: Distractible, Mild Impairment, Moderate Impairment Ability to Follow Directions: Fair (1 stage commands) Head/Neck Control: Good - Hearing Hearing: Normal Speech Evaluation - Communication Primary Language: HEBREW Communication: Yes: Aphasia Oral Expression Ability: Yes: Moderate Impairment - Speech Production Able to Make Needs Known: Yes: Moderately Impaired Intelligibility: Yes: Mildly Impaired - Speech Characteristics Voice Loudness: Normal Voice Pitch: Yes: Normal Voice Phonatory-based Quality: Yes: Normal Speech Pattern: Impaired Speech Clarity: < 75% Nasal Resonance: Normal Articulation: Yes: Precise - Language/Auditory Comprehension Follows: Yes: 1 Stage Simple Commands (not consistent) Observation: Able to respond to yes/no queries: Yes (not consistent and reliable), Yes/No Confusion: Yes, Comprehends Conversational Speech: Yes (simple), Benefits from Slow Speech: Yes, Benefits from Repetiton: Yes - Language/Verbal Expression Aphasia: Yes: Anomia, Paraphrasic Errors, Neologisms, Grammatic Errors Able to Respond to Simple Queries: Yes: Moderately Impaired Able to Communicate Wants and Needs: Yes: Mildly Impaired, Moderately Impaired Functional Communication Status: Yes: Moderately Impaired Aware of Errors: No Attempts to Correct Errors: No Use of Gestures: No - Memory/Perception Short Term Memory: Yes: Moderately Impaired - Swallow Evaluation/Bedside Assessment Current Nutritional Intake: Regular, Thin Liquids Oral Secretions: Yes: WFL Dentition: Yes: Adequate Facial Symmetry at Rest: Facial Droop Right Against Resistance Opening: Weak Against Resistance Closing: Weak Pucker Lips: Weak Smile: Weak Lingual Movement: Symmetric Lingual Movement Strgth Against Opposition: Reduced Lingual Movement Characteristics: Normal Laryngeal Movement: Able to Palpate Rate of Intake: WFL Bolus Size: WFL Labial Seal: WFL Chewing: WFL (slow but seems efficient) Oral Prep Time: WFL A-P Transit: WFL Pocketing: None Timing of Swallow: Delayed Coughing/Throat Clear: No Change in Voice: No Recommendations - Speech Evaluation, Impression/Plan Impression: Today, pt is awake, distractible, needs reminders to open her eyes, participate and concentrate. She can follow 1 step commands, sometimes needing cues to focus and repeat stimulus. She can not follow 2 step commands. Verbal formulation is delayed, produces words and phrases with intermittent errors without awareness. Perseveration and tangential responses are noted. Social speech and simple formulation is accurate 50% of the time. She is not oriented to place and has impaired insight with no awarewness or frustration. She knows her daughter. No dysarthrtia or dysphagia. Mild right facial and right arm/hand weakness. Possible right hemianopsia/neglect? - Disposition Discharge to: Rehabilitation Center - Dysphagia Impressions/Plan Dysphagia Impressions: Mild Impairment *Silent aspiration: cannot be R/O at bedside Dysphagia Treatment Plan: Small Bites, Clear Pocket Food, 1/2 tsp. at a time, Elevate HOB during feed, OOB for meals, OOB for 1 h. after meals - Recommendations Diet Consistency: Regular (soft may be easier to coordinate) Liquids: Thin Liquids
[2019-07-08] MEDS: LOSARTAN 50MG/HCTZ 12.5MG 1 TAB (FP) PO SCH (11:40)
[2019-07-08] MEDS: ASPIRIN COATED 81 MG TABLET.EC PO SCH (11:41)
[2019-07-08] MEDS: NIFEdipine E.R 60 MG TABLET PO SCH ×2 (11:42→22:25)
[2019-07-08] MEDS: POLYETHYLENE GLYCOL 3350 119 GM BTL PO SCH ×2 (11:46→22:25)
--- NOTE | 2019-07-08 11:52 | PN ---
Progress Note, Physician Chief Complaint: Pt sitting up in bed; slow to respond verbally; daughter answers for her. Does not follow verbal requests, but daughter says her mother has improved since admission. History of Present Illness: 73-year-old black woman with PMHx CAD s/p two coronary stents (reportedly noncompliant to antiplatelets and all other medications; per pt's daughter, Ifeanyi, pt lives with her in multi-family home, but insists on handling her medications by herself), diastolic CHF, hypertension, hyperlipidemia, DM, was in her usual state of health until 1 PM 07/05/19. Patient's daughter was doing her hair when she noticed mother's sudden difficulty expressing herself. 911 was called: stroke protocol was initiated; CAT scan of the head revealed no evidence of acute pathology. According to the emergency room the patient was hemodynamically unstable with high blood pressure; patient was stabilized, but had a seizure, with gaze deviation and tremors of the arms (no prior history of seizure, per daughter) Patient is on Plavix at home (reportedly noncompliant); in the emergency room patient was alert, awake, oriented 2. - Current Medication List Current Medications: Active Medications Al Hydroxide/Mg Hydroxide (Mylanta Oral Suspension -) 30 ml PO Q6H PRN PRN Reason: DYSPEPSIA Aspirin (Ecotrin -) 81 mg PO DAILY [facility] Last Admin: 07/07/19 10:21 Dose: 81 mg Documented by: Atorvastatin Calcium (Lipitor -) 80 mg PO HS [facility] Last Admin: 07/07/19 22:01 Dose: 80 mg Documented by: Enalaprilat (Vasotec Injection -) 2.5 mg IVPB Q12H PRN PRN Reason: SBP > 150 HCTZ/Losartan Potassium (Hyzaar -) 2 tab PO DAILY [facility] Last Admin: 07/07/19 10:21 Dose: 2 tab Documented by: Heparin Sodium (Porcine) (Heparin -) 5,000 unit SQ Q8H-IV [facility] Last Admin: 07/08/19 02:43 Dose: 5,000 unit Documented by: Insulin Aspart (Novolog Vial Sliding Scale -) 1 vial SQ ACHS [facility]; Protocol Last Admin: 07/08/19 06:09 Dose: Not Given Documented by: Metoprolol Succinate (Toprol Xl -) 50 mg PO DAILY [facility] Last Admin: 07/07/19 10:21 Dose: 50 mg Documented by: Nifedipine (Procardia Xl -) 60 mg PO BID [facility] Last Admin: 07/07/19 22:02 Dose: 60 mg Documented by: Polyethylene Glycol (Miralax (For Daily Use) -) 17 gm PO BID [facility] Last Admin: 07/07/19 22:01 Dose: Not Given Documented by: - Objective Vital Signs: Vital Signs Temperature 98.1 F 07/08/19 06:00 Pulse Rate 68 07/08/19 06:00 Respiratory Rate 18 07/08/19 06:00 Blood Pressure 121/60 07/08/19 06:00 O2 Sat by Pulse Oximetry (%) 99 07/07/19 21:00 Constitutional: Yes: Calm Cardiovascular: Yes: S1, S2, S4 Respiratory: Yes: Regular Gastrointestinal: Yes: Soft ...Rectal Exam: Yes: Deferred Genitourinary: No: Anuria Breast(s): Yes: WNL Musculoskeletal: Yes: Muscle Weakness Extremities: Yes: Cool Edema: No Peripheral Pulses WNL: Yes Integumentary: Yes: WNL Neurological: Yes: Weakness Labs: CBC, BMP 07/06/19 06:20 07/08/19 05:25 INR, PTT INR 1.15 (0.83-1.09) H 07/05/19 14:20 Abnormal Lab Results 07/08/19 07/08/19 05:25 14:20 Anion Gap 7 L BUN 34.2 H Creatinine 2.2 H Urine Protein 1+ H - ....Imaging Chest X-ray: Image Reviewed Cat Scan: Image Reviewed MRI: Image Reviewed EKG: Image Reviewed Problem List - Problems (1) Seizure Code(s): R56.9 - UNSPECIFIED CONVULSIONS (2) Diabetes mellitus type 2 with complications Code(s): E11.8 - TYPE 2 DIABETES MELLITUS WITH UNSPECIFIED COMPLICATIONS (3) HLD (hyperlipidemia) Code(s): E78.5 - HYPERLIPIDEMIA, UNSPECIFIED Qualifiers: Hyperlipidemia type: mixed hyperlipidemia Qualified Code(s): E78.2 - Mixed hyperlipidemia (4) HTN (hypertension) Assessment/Plan: discontinue HCTZ (elevated BUN/Cr). Continue losartan, nifedipine, metoprolol. ECHO: normal LVEF; mild LVH; abnormal diastolic compliance. Code(s): I10 - ESSENTIAL (PRIMARY) HYPERTENSION Qualifiers: Hypertension type: essential hypertension Qualified Code(s): I10 - Essential (primary) hypertension (5) CVA (cerebral vascular accident) Assessment/Plan: left thalamic infarct. F/u with neurologist. Code(s): I63.9 - CEREBRAL INFARCTION, UNSPECIFIED Qualifiers: CVA mechanism: thrombosis Precerebral and cerebral artery: middle cerebral artery Laterality of affected vessel: left Qualified Code(s): I63.312 - Cerebral infarction due to thrombosis of left middle cerebral artery (6) Acute renal insufficiency Assessment/Plan: Increase in BUN/Cr Avoid dehydration. Hold diuretic. Code(s): N28.9 - DISORDER OF KIDNEY AND URETER, UNSPECIFIED (7) [place] cardiac risk >20% in next 10 years Assessment/Plan: Hx ? [place]; s/p coronary stents. F/u results of prior cardiac workup. Code(s): Z91.89 - [facility] PERSONAL RISK FACTORS, NOT ELSEWHERE CLASSIFIED (8) CAD (coronary artery disease) Assessment/Plan: f/u prior workup: hx ? 2 coronary stents done at ? [facility] 2 yrs ago. F/u lipid profile. ECHO for LVEF, regional wall motion. Code(s): I25.10 - ATHSCL HEART DISEASE OF [place] CORONARY ARTERY W/O ANG PCTRS
--- NOTE | 2019-07-08 12:01 | ECHO ---
Version: 1 Name: MALKA ABREU Exam: Adult Echocardiogram Study Date: 07/08/2019, 9:55 AM Age: 73 Years MMode/2D Measurements & Calculations IVSd: 0.81 cm LVIDs: 2.12 cm LVIDd: 3.8 cm LVPWd: 0.99 cm ACS: 1.56 cm Ao root diam: 3.1 cm LA dimension: 2.36 cm Doppler Measurements & Calculations MV E max raz: 60.7 cm/sec Med E/e': 10.1 MV A max raz: 102.7 cm/sec Med Peak E' Raz: 6.0 cm/sec MV E/A: 0.59 Lat E/e': 8.9 Lat Peak E' Raz: 6.8 cm/sec Ao max P.4 mmHg Ao mean P.7 mmHg Ao V2 max: 161.5 cm/sec TR max raz: 219.4 cm/sec TR max P.3 mmHg Left Ventricle The left ventricle is normal in size. There is mild concentric left ventricular hypertrophy. Left ve ntricular systolic function is normal. Ejection Fraction = 70%. The transmitral spectral Doppler flow pattern is suggestive of impaired LV relaxation. Right Ventricle The right ventricle is normal in size and function. Atria Normal left and right atrial size and function. Mitral Valve There is mild to moderate mitral annular calcification. There is mild mitral regurgitation. Tricuspid Valve The tricuspid valve is normal. There is trace tricuspid regurgitation. Aortic Valve There is mild to moderate aortic sclerosis.;. Pulmonic Valve The pulmonic valve is not well visualized. Great Vessels The aortic root is normal size. Normal aortic arch, descending and ascending aorta. Pericardium/Pleura There is no pericardial effusion. Summary Statements The left ventricle is normal in size. There is mild concentric left ventricular hypertrophy. Left ventricular systolic function is normal. The transmitral spectral Doppler flow pattern is suggestive of impaired LV relaxation. The right ventricle is normal in size and function. Normal left and right atrial size and function. There is mild to moderate mitral annular calcification. There is mild mitral regurgitation. The tricuspid valve is normal. There is trace tricuspid regurgitation. There is mild to moderate aortic sclerosis.; The pulmonic valve is not well visualized. The aortic root is normal size. Normal aortic arch, descending and ascending aorta There is no pericardial effusion. Ejection Fraction = 70%. Ramana Issa 07/08/2019, 11:01 AM Ordering Physician: Isac Paulino Performed By: Verenice Lind
--- NOTE | 2019-07-08 12:41 | PN ---
Progress Note, Physician Chief Complaint: More sleepy and lethargic today during exam. Daughter at the bedside. MRI done yesterday after Ativan 0.5 mg at 6 :15 PM Results -P Noted elevated Creatinine to 2.2 today. History of Present Illness: DM type 2 not well controlled HTN MNG HLD OA LEFT Breast CA/lumpectomy - Current Medication List Current Medications: Active Medications Al Hydroxide/Mg Hydroxide (Mylanta Oral Suspension -) 30 ml PO Q6H PRN PRN Reason: DYSPEPSIA Aspirin (Ecotrin -) 81 mg PO DAILY [facility] Last Admin: 07/08/19 11:41 Dose: 81 mg Documented by: Atorvastatin Calcium (Lipitor -) 80 mg PO HS [facility] Last Admin: 07/07/19 22:01 Dose: 80 mg Documented by: Enalaprilat (Vasotec Injection -) 2.5 mg IVPB Q12H PRN PRN Reason: SBP > 150 Heparin Sodium (Porcine) (Heparin -) 5,000 unit SQ Q8H-IV [facility] Last Admin: 07/08/19 11:43 Dose: 5,000 unit Documented by: Insulin Aspart (Novolog Vial Sliding Scale -) 1 vial SQ ACHS [facility]; Protocol Last Admin: 07/08/19 11:54 Dose: Not Given Documented by: Losartan Potassium (Cozaar -) 25 mg PO DAILY [facility] Metoprolol Succinate (Toprol Xl -) 50 mg PO DAILY [facility] Last Admin: 07/08/19 11:42 Dose: 50 mg Documented by: Nifedipine (Procardia Xl -) 60 mg PO BID [facility] Last Admin: 07/08/19 11:42 Dose: 60 mg Documented by: Polyethylene Glycol (Miralax (For Daily Use) -) 17 gm PO BID [facility] Last Admin: 07/08/19 11:46 Dose: 17 gm Documented by: - Objective Vital Signs: Vital Signs Temperature 98.7 F 07/08/19 10:00 Pulse Rate 66 07/08/19 10:00 Respiratory Rate 18 07/08/19 10:00 Blood Pressure 140/63 07/08/19 10:00 O2 Sat by Pulse Oximetry (%) 99 07/07/19 21:00 Constitutional: Yes: No Distress, Thin Eyes: Yes: Conjunctiva Clear, EOM Intact HENT: Yes: Atraumatic, Normocephalic. No: Drooling, Epistaxis Neck: Yes: Supple, Trachea Midline Cardiovascular: Yes: Regular Rate and Rhythm, S1, S2. No: Bradycardia, Tachycardia Respiratory: Yes: Regular, CTA Bilaterally. No: Accessory Muscle Use Gastrointestinal: Yes: Normal Bowel Sounds, Soft. No: Abdomen, Obese, Vomiting ...Rectal Exam: Yes: Deferred, Other (BM yesterday) Breast(s): No: Mass Musculoskeletal: Yes: WNL Extremities: No: Amputation, Calf Tenderness, Cold Edema: No Integumentary: Yes: WNL Neurological: Yes: Alert, Aphasia, Babinski negative, Confusion, Dysarthria, Lethargy. No: Oriented, Seizure, Unresponsive Psychiatric: No: Oriented, Agitated, Suicidal Ideation Labs: CBC, BMP 07/06/19 06:20 07/08/19 05:25 INR, PTT INR 1.15 (0.83-1.09) H 07/05/19 14:20 Laboratory Results - last 24 hr 07/07/19 07/07/19 07/08/19 16:35 22:00 05:25 Sodium 141 Potassium 3.6 Chloride 105 Carbon Dioxide 29 Anion Gap 7 L BUN 34.2 H Creatinine 2.2 H Est GFR (CKD-EPI)AfAm 25.13 Est GFR (CKD-EPI)NonAf 21.68 POC Glucometer 125 88 Random Glucose 97 Calcium 9.3 Total Bilirubin 0.8 AST 16 ALT 13 Alkaline Phosphatase 64 Total Protein 7.1 Albumin 3.6 07/08/19 07/08/19 06:08 11:53 Sodium Potassium Chloride Carbon Dioxide Anion Gap BUN Creatinine Est GFR (CKD-EPI)AfAm Est GFR (CKD-EPI)NonAf POC Glucometer 91 107 Random Glucose Calcium Total Bilirubin AST ALT Alkaline Phosphatase Total Protein Albumin Problem List - Problems (1) CVA (cerebral vascular accident) Assessment/Plan: MRI-pending Carotid US-neg Neuro F/u Code(s): I63.9 - CEREBRAL INFARCTION, UNSPECIFIED Qualifiers: CVA mechanism: thrombosis Precerebral and cerebral artery: middle cerebral artery Laterality of affected vessel: left Qualified Code(s): I63.312 - Cerebral infarction due to thrombosis of left middle cerebral artery (2) Diabetes mellitus type 2 with complications Assessment/Plan: Follow BGM Insulin coverage and basal. Diet ADA Code(s): E11.8 - TYPE 2 DIABETES MELLITUS WITH UNSPECIFIED COMPLICATIONS (3) HLD (hyperlipidemia) Assessment/Plan: Lipitor 80 mg QD Code(s): E78.5 - HYPERLIPIDEMIA, UNSPECIFIED Qualifiers: Hyperlipidemia type: mixed hyperlipidemia Qualified Code(s): E78.2 - Mixed hyperlipidemia (4) HTN (hypertension) Assessment/Plan: Losartan 25 mg Procardia XL 60 BID Follow BP Code(s): I10 - ESSENTIAL (PRIMARY) HYPERTENSION Qualifiers: Hypertension type: essential hypertension Qualified Code(s): I10 - Essential (primary) hypertension (5) NUPUR (acute kidney injury) Assessment/Plan: New elevation Creat to 2.2-MRI ELO ? Will decrease Losartan dose to 25 QD UA, Kidney US Renal onsult Repeat BMP tomorrow IV LR Code(s): N17.9 - ACUTE KIDNEY FAILURE, UNSPECIFIED
--- NOTE | 2019-07-08 13:22 | CON.NEP ---
Consult Consult Specialty:: Nephrology Referred by:: Dr. Cruz Reason for Consultation:: Acute kidney injury - History of Present Illness Chief Complaint: slurry speech History of Present Illness: This is a 73 year old woman with history of hypertension, DM type 2, hyperlipidemia, CAD s/p PCI and stenting who presented from home with slurred speech and found to have acute CVA who developed NUPUR during the hospital admission. Seen and examined at the bedside. She is sleeping bout arouseable. SHe is not answering questions. Family at the bedside. She does not provide further history. She has CT contrast exposure on 07/04 with her neck CTA. No NSAID exposure noted. Her BP was very elevated on presentation and was started on antihyperetnsives including ARB this admission. 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 No: AFIB, CHF, Deep Vein Thrombosis Renal/: No: Renal Inusuff, Hemodialysis, Renal Calculi Endocrine: Yes: Diabetes Mellitus. No: Valera's Disease, Sandy's Disease, Diabetes Insipidus, Hyperparathyroidism, Hyperthyroidism, Hypothyroidism, Osteopenia, SIADH, Other - Past Surgical History Past Surgical History: Yes: Breast Biopsy. 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 History of Recent Travel: No Home Medications - Allergies Allergies/Adverse Reactions: Allergies Allergy/AdvReac Type Severity Reaction Status Date / Time No Known Allergies Allergy Verified 07/05/19 14:27 - Home Medications Home Medications: Ambulatory Orders Losartan/Hydrochlorothiazide [Losartan-Hctz 100-25 mg Tab] 1 each PO DAILY 08/30/16 Atorvastatin Calcium 40 mg PO HS 07/05/19 Metformin HCl [Glucophage] 1,000 mg PO DAILY 07/05/19 Metoprolol Succinate 50 mg PO BID 07/05/19 Nifedipine [Nifedipine ER] 60 mg PO BID 07/05/19 Family Medical History Family History: Unable to Obtain Review of Systems Unable to obtain ROS, reason: due to lethargy Nephrology Consult - Height Height: 5 ft 5 in - Weight Weight: 62.596 kg - BMI Body Mass Index (BMI): 22.9 - Lab Results CBC,BMP: CBC, BMP 07/06/19 06:20 07/08/19 05:25 Anion Gap: Anion Gap Anion Gap 7 MMOL/L (8-16) L 07/08/19 05:25 - Imaging Chest X-ray: Report Reviewed - Physical Examination Vital Signs: Vital Signs Temperature 98.7 F 07/08/19 10:00 Pulse Rate 66 07/08/19 10:00 Respiratory Rate 18 07/08/19 10:00 Blood Pressure 140/63 07/08/19 10:00 O2 Sat by Pulse Oximetry (%) 99 07/07/19 21:00 Constitutional: Yes: Well Nourished, No Distress, Calm Eyes: Yes: Conjunctiva Clear HENT: Yes: Atraumatic, Normocephalic Neck: Yes: Supple. No: Lymphadenopathy Cardiovascular: Yes: Regular Rate and Rhythm, S1, S2. No: JVD, Murmur, Rub Respiratory: Yes: Regular, CTA Bilaterally. No: Cough, On Nasal O2, Rales, Rhonchi, SOB Gastrointestinal: Yes: Normal Bowel Sounds, Soft. No: Abdomen, Obese, Tenderness Renal/: No: Bladder Distention, CVA Tenderness - Left, CVA Tenderness - Right, Flores Present, Hematuria Extremities: No: Calf Tenderness, Cold, Cool, Cyanosis Edema: No Integumentary: No: Rash Neurological: Yes: Lethargy. No: Alert, Oriented, Seizure, Unresponsive Assessment/Plan 73 year old woman with history of hypertension, DM type 2, hyperlipidemia, CAD s/p PCI and stenting who presented from home with slurred speech and found to have acute CVA who developed NUPUR during the hospital admission. 1. Acute kidney injury likley multifactorial in etiology: contrast nephropathy + hemodynamic changes from BP control 2. Acute CVA 3. Hypertension 4. DM Type 2 5. Pyuria w/o infection 6. CAD No acute need for renal replacement therapy no overt electrolyte or acid.base disturbance. Pt appears euvolemic on examination. Check urine studies for FeNa, FeUrea, UPCR, Urine eosinophils Check renal and bladder US to r/o urinary retention Hold AMRVIN/ARB/diuretics for now Agree with LR at 75cc per hour x 24 hours BP control with Nifedpine ER and Metorpolol Can titrate metoprolol if needed Avoid further IV contrast exposure Avoid NSAIDs Would not restart Metformin untril Cr < 1.4 Neurology and cardiology follow up
[2019-07-08] MEDS: LACTATED RINGERS SOLUTION 1,000 ML/1,000 ML INFUS.BAG IV SCH (13:31)
[2019-07-08 15:25] LABS: EPI CELLS 1.3 /HPF (0-5/HPF); HYALINE CASTS 9 /lpf (0-8); PH,URINE 5.5 (5.0-8.0); URINE APPEARANCE CLEAR; URINE BACTERIA 3.9 /hpf (NEGATIVE); URINE BILIRUBIN NEGATIVE (NEGATIVE); URINE COLOR YELLOW; URINE GLUCOSE (UA) NEGATIVE (NEGATIVE); URINE KETONE NEGATIVE (NEGATIVE); URINE LEUK ESTERASE TRACE (NEGATIVE); URINE NITRITE NEGATIVE (NEGATIVE); URINE PROTEIN 1+ (NEGATIVE); URINE RBC 1 /hpf (0-4); URINE UROBILINOGEN 0.2 mg/dL (0.2-1.0); URINE WBC 4 /hpf (0-5)
--- NOTE | 2019-07-08 18:09 | PN.GI ---
GI Progress Note Subjective: Family present No vomiting Somewhat lethargic today, tolerating PO - Objective Vital Signs: Vital Signs Temperature 98.5 F 07/08/19 14:00 Pulse Rate 69 07/08/19 14:00 Respiratory Rate 16 07/08/19 14:00 Blood Pressure 125/58 L 07/08/19 14:00 O2 Sat by Pulse Oximetry (%) 100 07/08/19 09:00 Constitutional: Calm Eyes: No: Sclera Icterus Cardiovascular: Yes: Regular Rate and Rhythm, Murmur (2/6 systolic murmur at the RSB) Respiratory: Yes: Diminished (at bases bilaterally with poor insp effort) Gastrointestinal Inspection: Yes: Scars (pelvic scar). No: Distention ...Auscultate: Yes: Normoactive Bowel Sounds ...Palpate: Yes: Soft. No: Hepatomegaly, Splenomegaly, Tenderness ...Percussion: No: Tympanitic Edema: No (No LE edema) Neurological: Yes: Other (somnolent) Labs: CBC, BMP 07/06/19 06:20 07/08/19 05:25 INR, PTT INR 1.15 (0.83-1.09) H 07/05/19 14:20 Problem List - Problems (1) Vomiting Assessment/Plan: Tolerating PO and no further vomiting Added diabetic ensure to her trays If further vomiting, make NPO, obtain CT scan of the abdomen and pelvis without contrast (PO contrast if patient can tolerate), otherwise continue to monitor Code(s): R11.10 - VOMITING, UNSPECIFIED
[2019-07-08] MEDS: ATORVASTATIN CA 80 MG TABLET (FP) PO SCH (22:25)
[2019-07-08] MEDS ORDERED: LORazepam 2 MG/ML SDV VIAL IVPUSH ONE (23:03)
[2019-07-08] MEDS ORDERED: LORazepam 2 MG/ML SDV VIAL IM ONE (23:21)
[2019-07-09] MEDS: HEPARIN NA (PORCINE) 5,000 UNITS/ML 1ML VIAL SQ SCH ×3 (03:11→17:08)
[2019-07-09 07:58] LABS: BASO % 0.8 % (0-2.0); EOS % 1.7 % (0-4.5); HEMOGLOBIN 11.6 GM/dL (10.7-15.3); LYMPH % 35.3 % (8-40); MCHC 32.2 g/dl (32.0-36.0); MEAN CELL VOLUME 83.7 fl (80-96); MEAN PLT VOLUME 10.1 fl (7.5-11.1); MONO % 11.6 % (3.8-10.2); NEUT % 50.6 % (42.8-82.8); PLATELET COUNT 196 K/MM3 (134-434); RDW 14.6 % (11.6-15.6); WHITE BLOOD COUNT 7.4 K/mm3 (4.0-10.0)
[2019-07-09] MEDS: INSULIN SLIDING SCALE (NOVOLOG) 1 VIAL SQ SCH ×4 (08:03→22:30)
[2019-07-09 08:10] LABS: ALBUMIN 3.4 g/dl (3.4-5.0); BILIRUBIN,TOTAL 0.8 mg/dL (0.2-1); BLOOD UREA NITROGEN 51.1 mg/dL (7-18); CALCIUM 9.5 mg/dL (8.5-10.1); CREATININE 2.1 mg/dL (0.55-1.3); POTASSIUM 3.7 mmol/L (3.5-5.1)
[2019-07-09] MEDS ORDERED: LOSARTAN POTASSIUM 50 MG TABLET (FP) PO SCH (10:00)
[2019-07-09] MEDS: LOSARTAN POTASSIUM 25 MG TABLET PO SCH (10:12)
[2019-07-09] MEDS: NIFEdipine E.R 60 MG TABLET PO SCH ×2 (10:12→22:31)
[2019-07-09] MEDS: ASPIRIN COATED 81 MG TABLET.EC PO SCH (10:12)
[2019-07-09] MEDS: POLYETHYLENE GLYCOL 3350 119 GM BTL PO SCH ×2 (10:12→22:30)
--- NOTE | 2019-07-09 10:55 | PN ---
Progress Note, Physician History of Present Illness: This is a 73 year old woman with a history of HTN, hyperlipidemia, CAD PCI stent 2 years ago probably LHH (noncomplient with DAPT ASA), type 2 DM who was brought in to the ED by EMS today because of slurred speech. The patient is awake and alert but confused and unable to provide much history. She says she does not remember anything that happened yesterday or today. The patietn's daughter states that she was well around 9 am. She went out, and when she came home around 12 noon, she noticed that her mother's speech was slurred. She also noticed weakness of the left side of her face. The patient then became confused and began speaking slowly. EMS was called and she was brought into the ED. The patient's daughter reports that she has not been taking her medications for some time. She has not been on aspirin or Plavix. - Current Medication List Current Medications: Active Medications Al Hydroxide/Mg Hydroxide (Mylanta Oral Suspension -) 30 ml PO Q6H PRN PRN Reason: DYSPEPSIA Aspirin (Ecotrin -) 81 mg PO DAILY [facility] Last Admin: 07/09/19 10:12 Dose: 81 mg Documented by: Atorvastatin Calcium (Lipitor -) 80 mg PO HS [facility] Last Admin: 07/08/19 22:25 Dose: 80 mg Documented by: Heparin Sodium (Porcine) (Heparin -) 5,000 unit SQ Q8H-IV [facility] Last Admin: 07/09/19 10:12 Dose: 5,000 unit Documented by: Lactated Ringer's (Lactated Ringers Solution) 1,000 ml in 1,000 mls @ 75 mls/hr IV ASDIR [facility] Last Admin: 07/08/19 13:31 Dose: 75 mls/hr Documented by: Insulin Aspart (Novolog Vial Sliding Scale -) 1 vial SQ ACHS [facility]; Protocol Last Admin: 07/09/19 08:03 Dose: Not Given Documented by: Losartan Potassium (Cozaar -) 25 mg PO DAILY [facility] Last Admin: 07/09/19 10:12 Dose: 25 mg Documented by: Metoprolol Succinate (Toprol Xl -) 50 mg PO DAILY [facility] Last Admin: 07/09/19 10:13 Dose: 50 mg Documented by: Nifedipine (Procardia Xl -) 60 mg PO BID [facility] Last Admin: 07/09/19 10:12 Dose: 60 mg Documented by: Polyethylene Glycol (Miralax (For Daily Use) -) 17 gm PO BID [facility] Last Admin: 07/09/19 10:12 Dose: 17 gm Documented by: - Objective Vital Signs: Vital Signs Temperature 98.1 F 07/09/19 06:00 Pulse Rate 63 07/09/19 06:00 Respiratory Rate 18 07/09/19 06:00 Blood Pressure 119/48 L 07/09/19 06:00 O2 Sat by Pulse Oximetry (%) 97 07/09/19 08:26 Eyes: Yes: WNL, Conjunctiva Clear, EOM Intact HENT: Yes: WNL, Atraumatic, Normocephalic Neck: Yes: WNL, Supple, Trachea Midline Cardiovascular: Yes: WNL, Regular Rate and Rhythm Respiratory: Yes: WNL, Regular, CTA Bilaterally Gastrointestinal: Yes: WNL, Normal Bowel Sounds Genitourinary: Yes: WNL Musculoskeletal: Yes: WNL Extremities: Yes: WNL Edema: No Integumentary: Yes: WNL ...Motor Strength: WNL Psychiatric: Yes: WNL Labs: CBC, BMP 07/09/19 06:30 07/09/19 06:30 INR, PTT INR 1.15 (0.83-1.09) H 07/05/19 14:20 Problem List - Problems (1) CVA (cerebral vascular accident) Code(s): I63.9 - CEREBRAL INFARCTION, UNSPECIFIED Qualifiers: CVA mechanism: thrombosis Precerebral and cerebral artery: middle cerebral artery Laterality of affected vessel: left Qualified Code(s): I63.312 - Cerebral infarction due to thrombosis of left middle cerebral artery (2) Ischemic stroke Code(s): I63.9 - CEREBRAL INFARCTION, UNSPECIFIED (3) Transient ischemic attack Code(s): G45.9 - TRANSIENT CEREBRAL ISCHEMIC ATTACK, UNSPECIFIED (4) Atypical chest pain Code(s): R07.89 - OTHER CHEST PAIN (5) Chest pain Code(s): R07.9 - CHEST PAIN, UNSPECIFIED (6) Diabetes mellitus type 2 with complications Code(s): E11.8 - TYPE 2 DIABETES MELLITUS WITH UNSPECIFIED COMPLICATIONS (7) HLD (hyperlipidemia) Code(s): E78.5 - HYPERLIPIDEMIA, UNSPECIFIED Qualifiers: Hyperlipidemia type: mixed hyperlipidemia Qualified Code(s): E78.2 - Mixed hyperlipidemia (8) HTN (hypertension) Code(s): I10 - ESSENTIAL (PRIMARY) HYPERTENSION Qualifiers: Hypertension type: essential hypertension Qualified Code(s): I10 - Essential (primary) hypertension (9) Hyperkalemia Code(s): E87.5 - HYPERKALEMIA (10) Hypokalemia due to loss of potassium Code(s): E87.6 - HYPOKALEMIA (11) Pain of left calf Code(s): M79.662 - PAIN IN LEFT LOWER LEG (12) Shortness of breath Code(s): R06.02 - SHORTNESS OF BREATH Assessment/Plan - Problems (1) Seizure Code(s): R56.9 - UNSPECIFIED CONVULSIONS (2) Diabetes mellitus type 2 with complications Code(s): E11.8 - TYPE 2 DIABETES MELLITUS WITH UNSPECIFIED COMPLICATIONS (3) HLD (hyperlipidemia) Code(s): E78.5 - HYPERLIPIDEMIA, UNSPECIFIED Qualifiers: Hyperlipidemia type: mixed hyperlipidemia Qualified Code(s): E78.2 - Mixed hyperlipidemia (4) HTN (hypertension) Assessment/Plan: discontinue HCTZ (elevated BUN/Cr). Continue losartan, nifedipine, metoprolol. ECHO: normal LVEF; mild LVH; abnormal diastolic compliance. Code(s): I10 - ESSENTIAL (PRIMARY) HYPERTENSION Qualifiers: Hypertension type: essential hypertension Qualified Code(s): I10 - Essential (primary) hypertension (5) CVA (cerebral vascular accident) Code(s): I63.9 - CEREBRAL INFARCTION, UNSPECIFIED Qualifiers: CVA mechanism: thrombosis Precerebral and cerebral artery: middle cerebral artery Laterality of affected vessel: left Qualified Code(s): I63.312 - Cerebral infarction due to thrombosis of left middle cerebral artery RX as per Neurology cont ASA (6) Acute renal insufficiency Assessment/Plan: Increase in BUN/Cr Avoid dehydration. Code(s): N28.9 - DISORDER OF KIDNEY AND URETER, UNSPECIFIED (7) [place] cardiac risk >20% in next 10 years Code(s): Z91.89 - OTH PERSONAL RISK FACTORS, NOT ELSEWHERE CLASSIFIED (8) CAD (coronary artery disease) Assessment/Plan: f/u prior workup: hx ? 2 coronary stents done at ? [facility] 2 yrs ago. F/u lipid profile. ECHO nl ef Code(s): I25.10 - ATHSCL HEART DISEASE OF [place] CORONARY ARTERY W/O ANG PCTRS
--- NOTE | 2019-07-09 11:11 | PN ---
Progress Note, LENS MAKER - Note Progress Note: Awake, pleasant, friendly and cooperative. Expressive aphasia with neologisms, without awaremness. Comprehends conversation and simple questions. Selected Entries 07/07/19 07/07/19 07/07/19 02:18 06:17 10:00 Breakfast Diet Tolerated Lunch Temperature 98.0 F 98.2 F 98.3 F 07/07/19 07/07/19 07/07/19 11:10 14:00 15:42 Breakfast 25% Diet Tolerated Lunch 0 Temperature 98.2 F 07/07/19 07/07/19 07/08/19 18:00 22:00 02:00 Breakfast Diet Tolerated Lunch Temperature 98.2 F 98.1 F 97.6 F 07/08/19 07/08/19 07/08/19 06:00 10:00 14:00 Breakfast 0 Diet Tolerated Poor Lunch 25% Temperature 98.1 F 98.7 F 98.5 F 07/08/19 07/08/19 07/09/19 18:00 21:00 06:00 Breakfast Diet Tolerated Lunch Temperature 98.0 F 98 F 98.1 F 07/09/19 10:50 Breakfast 0 Diet Tolerated Refused Lunch Temperature Laboratory Tests 07/06/19 07/09/19 06:20 06:30 WBC 6.6 7.4 Pt would benefit from continued intensive speech/language tx Provide Glucerna supplements b/n meals.
[2019-07-09] MEDS: LACTATED RINGERS SOLUTION 1,000 ML/1,000 ML INFUS.BAG IV SCH (12:29)
--- NOTE | 2019-07-09 13:04 | PN ---
Progress Note, Physician History of Present Illness: Seen and examined at the bedside awake, alert daughter at the bedside no overnight events making urine was on IVF overnight - Current Medication List Current Medications: Active Medications Al Hydroxide/Mg Hydroxide (Mylanta Oral Suspension -) 30 ml PO Q6H PRN PRN Reason: DYSPEPSIA Aspirin (Ecotrin -) 81 mg PO DAILY [facility] Last Admin: 07/09/19 10:12 Dose: 81 mg Documented by: Atorvastatin Calcium (Lipitor -) 80 mg PO HS [facility] Last Admin: 07/08/19 22:25 Dose: 80 mg Documented by: Heparin Sodium (Porcine) (Heparin -) 5,000 unit SQ Q8H-IV [facility] Last Admin: 07/09/19 10:12 Dose: 5,000 unit Documented by: Lactated Ringer's (Lactated Ringers Solution) 1,000 ml in 1,000 mls @ 75 mls/hr IV ASDIR [facility] Last Admin: 07/09/19 12:29 Dose: Not Given Documented by: Insulin Aspart (Novolog Vial Sliding Scale -) 1 vial SQ [facility]; Protocol Last Admin: 07/09/19 12:28 Dose: Not Given Documented by: Losartan Potassium (Cozaar -) 25 mg PO DAILY [facility] Last Admin: 07/09/19 10:12 Dose: 25 mg Documented by: Metoprolol Succinate (Toprol Xl -) 50 mg PO DAILY [facility] Last Admin: 07/09/19 10:13 Dose: 50 mg Documented by: Nifedipine (Procardia Xl -) 60 mg PO BID [facility] Last Admin: 07/09/19 10:12 Dose: 60 mg Documented by: Polyethylene Glycol (Miralax (For Daily Use) -) 17 gm PO BID [facility] Last Admin: 07/09/19 10:12 Dose: 17 gm Documented by: - Objective Vital Signs: Vital Signs Temperature 98.1 F 07/09/19 06:00 Pulse Rate 63 07/09/19 06:00 Respiratory Rate 18 07/09/19 06:00 Blood Pressure 119/48 L 07/09/19 06:00 O2 Sat by Pulse Oximetry (%) 97 07/09/19 08:26 Constitutional: Yes: Well Nourished, No Distress Eyes: Yes: Conjunctiva Clear HENT: Yes: Atraumatic, Normocephalic Neck: Yes: Supple Cardiovascular: Yes: Regular Rate and Rhythm, S1, S2. No: JVD, Murmur, Rub Respiratory: Yes: Regular, CTA Bilaterally. No: Rales, Rhonchi Gastrointestinal: Yes: Normal Bowel Sounds, Soft Genitourinary: No: Bladder Distention Edema: No Neurological: Yes: Alert Labs: CBC, BMP 07/09/19 06:30 07/09/19 06:30 INR, PTT INR 1.15 (0.83-1.09) H 07/05/19 14:20 Problem List - Problems (1) NUPUR (acute kidney injury) Code(s): N17.9 - ACUTE KIDNEY FAILURE, UNSPECIFIED (2) CVA (cerebral vascular accident) Code(s): I63.9 - CEREBRAL INFARCTION, UNSPECIFIED Qualifiers: CVA mechanism: thrombosis Precerebral and cerebral artery: middle cerebral artery Laterality of affected vessel: left Qualified Code(s): I63.312 - Cerebral infarction due to thrombosis of left middle cerebral artery (3) HTN (hypertension) Code(s): I10 - ESSENTIAL (PRIMARY) HYPERTENSION Qualifiers: Hypertension type: essential hypertension Qualified Code(s): I10 - Essential (primary) hypertension (4) Contrast dye induced nephropathy Code(s): N14.1 - NEPHROPATHY INDUCED BY OTH DRUG/MEDS/BIOL SUBST; T50.8X5A - ADVERSE EFFECT OF DIAGNOSTIC AGENTS, INITIAL ENCOUNTER Assessment/Plan 73 year old woman with history of hypertension, DM type 2, hyperlipidemia, CAD s/p PCI and stenting who presented from home with slurred speech and found to have acute CVA who developed NUPUR during the hospital admission. 1. Acute kidney injury likley multifactorial in etiology: contrast nephropathy + hemodynamic changes from BP control 2. Acute CVA 3. Hypertension 4. DM Type 2 5. Pyuria w/o infection 6. CAD Renal function stable. no overt electrolyte or acid.base disturbance. Pt appears euvolemic on examination. Urine studies pending Renal US pending Hold MARVIN/ARB/diuretics for now can be off IVF as long as she is tolerating diet BP control with Nifedpine ER and Metorpolol Can titrate metoprolol if needed Avoid further IV contrast exposure Avoid NSAIDs Would not restart Metformin untril Cr < 1.4 Neurology and cardiology follow up
--- NOTE | 2019-07-09 13:36 | PN.GI ---
GI Progress Note Subjective: Pt seen/examined at bedside, pts daughter present. Lethargic though answers questions appropriately, pts daughter states she has been eating well with no further nausea/vomiting reported. - Objective Vital Signs: Vital Signs Temperature 98.1 F 07/09/19 06:00 Pulse Rate 63 07/09/19 06:00 Respiratory Rate 18 07/09/19 06:00 Blood Pressure 119/48 L 07/09/19 06:00 O2 Sat by Pulse Oximetry (%) 97 07/09/19 08:26 Constitutional: No Distress, Calm Cardiovascular: Yes: WNL, Regular Rate and Rhythm Respiratory: Yes: WNL, Regular, CTA Bilaterally ...Palpate: Yes: Other (Abd soft, nt, nd) Labs: CBC, BMP 07/09/19 06:30 07/09/19 06:30 INR, PTT INR 1.15 (0.83-1.09) H 07/05/19 14:20 Problem List - Problems (1) Nausea & vomiting Assessment/Plan: 73yo female h/o DM, HTN, CAD s/p PCI with acute CVA with episodes of nausea/vomiting. No further nausea/vomiting reported, pt tolerating po at this time as discussed with nursing staff and pts daughter. -Continue diet as tolerated -Glucerna supplements per PLACEMENT ASSISTANT -If recurrent symptoms please notify GI and consider further abdominal imaging at that time Code(s): R11.2 - NAUSEA WITH VOMITING, UNSPECIFIED
[2019-07-09] MEDS: clonazePAM 0.5 MG TABLET PO PRN (22:00)
[2019-07-09] MEDS: ATORVASTATIN CA 80 MG TABLET (FP) PO SCH (22:30)
[2019-07-10] MEDS: HEPARIN NA (PORCINE) 5,000 UNITS/ML 1ML VIAL SQ SCH ×3 (01:49→17:18)
[2019-07-10] MEDS: INSULIN SLIDING SCALE (NOVOLOG) 1 VIAL SQ SCH ×4 (06:39→22:08)
[2019-07-10 07:15] LABS: BLOOD UREA NITROGEN 53.9 mg/dL (7-18); CALCIUM 9.1 mg/dL (8.5-10.1); CREATININE 1.7 mg/dL (0.55-1.3); MAGNESIUM 2.8 mg/dL (1.8-2.4); PHOSPHOROUS 3.7 mg/dL (2.5-4.9)
--- NOTE | 2019-07-10 07:53 | PN ---
Progress Note, Physician Chief Complaint: Seen yesterday and spoke 3 times to the daughters. Confusion and anxiety/agitation at night was discussed. Clonazepam 0.25 mg was started yesterday for anxiety. Today: Slept well at night, still confused today, NAD Spoke to Ifeanyi and updated on mom's condition. History of Present Illness: DM type 2 not well controlled HTN MNG HLD OA LEFT Breast CA/lumpectomy - Current Medication List Current Medications: Active Medications Al Hydroxide/Mg Hydroxide (Mylanta Oral Suspension -) 30 ml PO Q6H PRN PRN Reason: DYSPEPSIA Aspirin (Ecotrin -) 81 mg PO DAILY [facility] Last Admin: 07/09/19 10:12 Dose: 81 mg Documented by: Atorvastatin Calcium (Lipitor -) 80 mg PO HS [facility] Last Admin: 07/09/19 22:30 Dose: 80 mg Documented by: Clonazepam (Klonopin -) 0.25 mg PO HS PRN PRN Reason: ANXIETY Last Admin: 07/09/19 22:00 Dose: 0.25 mg Documented by: Heparin Sodium (Porcine) (Heparin -) 5,000 unit SQ Q8H-IV [facility] Last Admin: 07/10/19 01:49 Dose: 5,000 unit Documented by: Lactated Ringer's (Lactated Ringers Solution) 1,000 ml in 1,000 mls @ 75 mls/hr IV ASDIR [facility] Last Admin: 07/09/19 12:29 Dose: Not Given Documented by: Insulin Aspart (Novolog Vial Sliding Scale -) 1 vial SQ ACHS [facility]; Protocol Last Admin: 07/10/19 06:39 Dose: Not Given Documented by: Losartan Potassium (Cozaar -) 25 mg PO DAILY [facility] Last Admin: 07/09/19 10:12 Dose: 25 mg Documented by: Metoprolol Succinate (Toprol Xl -) 50 mg PO DAILY [facility] Last Admin: 07/09/19 10:13 Dose: 50 mg Documented by: Nifedipine (Procardia Xl -) 60 mg PO BID [facility] Last Admin: 07/09/19 22:31 Dose: 60 mg Documented by: Polyethylene Glycol (Miralax (For Daily Use) -) 17 gm PO BID [facility] Last Admin: 07/09/19 22:30 Dose: 17 gm Documented by: - Objective Vital Signs: Vital Signs Temperature 97.5 F L 07/10/19 06:00 Pulse Rate 58 L 07/10/19 06:00 Respiratory Rate 18 07/10/19 06:00 Blood Pressure 122/56 L 07/10/19 06:00 O2 Sat by Pulse Oximetry (%) 97 07/09/19 21:00 Constitutional: Yes: No Distress, Calm Eyes: Yes: Conjunctiva Clear, EOM Intact HENT: Yes: Atraumatic, Normocephalic. No: Drooling Neck: Yes: Supple, Trachea Midline. No: Lymphadenopathy, Tenderness, Thyromegaly Cardiovascular: Yes: Regular Rate and Rhythm, S1, S2. No: Bradycardia, Tachycardia, Bruit, JVD Respiratory: Yes: Regular, CTA Bilaterally. No: Accessory Muscle Use Gastrointestinal: Yes: WNL, Normal Bowel Sounds, Soft ...Rectal Exam: Yes: Deferred Genitourinary: No: Anuria, Bladder Distention, CVA Tenderness - Left, CVA Tenderness - Right Breast(s): No: Mass, Nipple Inversion, Skin Changes Musculoskeletal: Yes: WNL Extremities: Yes: WNL Edema: No Peripheral Pulses WNL: Yes Integumentary: Yes: WNL Neurological: Yes: Alert, Confusion, Weakness. No: Oriented, Aphasia, Dysarthria, Seizure, Unresponsive Psychiatric: Yes: Alert. No: Oriented, Agitated, Suicidal Ideation Labs: CBC, BMP 07/09/19 06:30 07/10/19 06:10 INR, PTT INR 1.15 (0.83-1.09) H 07/05/19 14:20 Problem List - Problems (1) CVA (cerebral vascular accident) Assessment/Plan: MRI-C/w results CT head-left thalamic infarct-acute Carotid US-neg [facility], PT/OT Code(s): I63.9 - CEREBRAL INFARCTION, UNSPECIFIED Qualifiers: CVA mechanism: thrombosis Precerebral and cerebral artery: middle cerebral artery Laterality of affected vessel: left Qualified Code(s): I63.312 - C erebral infarction due to thrombosis of left middle cerebral artery (2) Diabetes mellitus type 2 with complications Assessment/Plan: Follow BGM Insulin coverage and basal. Diet ADA Code(s): E11.8 - TYPE 2 DIABETES MELLITUS WITH UNSPECIFIED COMPLICATIONS (3) HLD (hyperlipidemia) Assessment/Plan: Lipitor 80 mg QD Code(s): E78.5 - HYPERLIPIDEMIA, UNSPECIFIED Qualifiers: Hyperlipidemia type: mixed hyperlipidemia Qualified Code(s): E78.2 - Mixed hyperlipidemia (4) HTN (hypertension) Assessment/Plan: Losartan 25 mg Procardia XL 60 BID Follow BP Code(s): I10 - ESSENTIAL (PRIMARY) HYPERTENSION Qualifiers: Hypertension type: essential hypertension Qualified Code(s): I10 - Essen tial (primary) hypertension (5) NUPUR (acute kidney injury) Assessment/Plan: improved Creat to 1.7 Repeat BMP tomorrow PO fluids Code(s): N17.9 - ACUTE KIDNEY FAILURE, UNSPECIFIED
--- NOTE | 2019-07-10 07:56 | DS ---
Physical Examination Vital Signs: Vital Signs Temperature 97.5 F L 07/10/19 06:00 Pulse Rate 58 L 07/10/19 06:00 Respiratory Rate 18 07/10/19 06:00 Blood Pressure 122/56 L 07/10/19 06:00 O2 Sat by Pulse Oximetry (%) 97 07/09/19 21:00 Constitutional: Yes: No Distress, Calm Eyes: Yes: Conjunctiva Clear, EOM Intact HENT: Yes: Atraumatic, Normocephalic Neck: Yes: Supple, Trachea Midline Cardiovascular: Yes: Regular Rate and Rhythm, S1, S2 Respiratory: Yes: Regular, CTA Bilaterally Gastrointestinal: Yes: Normal Bowel Sounds, Soft. No: Abdomen, Obese ...Rectal Exam: Yes: Deferred Renal/: No: Anuria, Bladder Distention, CVA Tenderness - Left, CVA Tenderness - Right Breast(s): No: Dimpling, Discharge from Nipple, Mass, Nipple Inversion, Skin Changes Musculoskeletal: Yes: Muscle Weakness (generalized) Edema: No Integumentary: Yes: WNL Neurological: Yes: Alert, Aphasia, Dysarthria. No: Oriented, Seizure Psychiatric: Yes: Alert. No: Oriented, Agitated, Suicidal Ideation Labs: CBC, BMP 07/09/19 06:30 07/10/19 06:10 Discharge Summary Problems reviewed: Yes Reason For Visit: CVA Current Active Problems NUPUR (acute kidney injury) (Acute) Acute renal insufficiency (Acute) CAD (coronary artery disease) (Acute) CVA (cerebral vascular accident) (Acute) Contrast dye induced nephropathy (Acute) [place] cardiac risk >20% in next 10 years (Acute) Ischemic stroke (Acute) Nausea & vomiting (Acute) Seizure (Acute) Transient ischemic attack (Acute) Vomiting (Acute) Condition: Stable - Instructions Disposition: [facility] - Home Medications Comprehensive Discharge Medication List: Ambulatory Orders Losartan/Hydrochlorothiazide [Losartan-Hctz 100-25 mg Tab] 1 each PO DAILY 08/30/16 Atorvastatin Calcium 40 mg PO HS 07/05/19 Metformin HCl [Glucophage] 1,000 mg PO DAILY 07/05/19 Metoprolol Succinate 50 mg PO BID 07/05/19 Nifedipine [Nifedipine ER] 60 mg PO BID 07/05/19
--- NOTE | 2019-07-10 08:04 | PN ---
Progress Note (short form) - Note Progress Note: Seen in AM 07/09/2019 and PM 07/09/2019. D/C plan discussed with the family. Speech pathology f/u, PT appreciated. VSS Lungs Clear Heart S1S2 regular Abdomen Soft, NT Ext -no CCE Neuro-moves all extremities. Generalized weakness. Aphasia. Confusion. Current Active Problems Problem Status Onset NUPUR (acute kidney injury) Acute Acute renal insufficiency Acute CAD (coronary artery disease) Acute CVA (cerebral vascular accident) Acute Contrast dye induced nephropathy Acute [place] cardiac risk >20% in next 10 years Acute Ischemic stroke Acute Nausea & vomiting Acute Seizure Acute Transient ischemic attack Acute Vomiting Acute Plan Fllow BMP Avoid nephrotoxic drugs PT BP control BGM control Problem List - Problems (1) CVA (cerebral vascular accident) Code(s): I63.9 - CEREBRAL INFARCTION, UNSPECIFIED Qualifiers: CVA mechanism: thrombosis Precerebral and cerebral artery: middle cerebral artery Laterality of affected vessel: left Qualified Code(s): I63.312 - Cerebral infarction due to thrombosis of left middle cerebral artery (2) Diabetes mellitus type 2 with complications Code(s): E11.8 - TYPE 2 DIABETES MELLITUS WITH UNSPECIFIED COMPLICATIONS (3) HLD (hyperlipidemia) Code(s): E78.5 - HYPERLIPIDEMIA, UNSPECIFIED Qualifiers: Hyperlipidemia type: mixed hyperlipidemia Qualified Code(s): E78.2 - Mixed hyperlipidemia (4) HTN (hypertension) Code(s): I10 - ESSENTIAL (PRIMARY) HYPERTENSION Qualifiers: Hypertension type: essential hypertension Qualified Code(s): I10 - Essential (primary) hypertension (5) NUPUR (acute kidney injury) Code(s): N17.9 - ACUTE KIDNEY FAILURE, UNSPECIFIED
[2019-07-10] MEDS: POLYETHYLENE GLYCOL 3350 119 GM BTL PO SCH ×2 (10:55→22:08)
[2019-07-10] MEDS: LOSARTAN POTASSIUM 25 MG TABLET PO SCH (10:55)
[2019-07-10] MEDS: NIFEdipine E.R 60 MG TABLET PO SCH ×2 (10:55→22:07)
[2019-07-10] MEDS: ASPIRIN COATED 81 MG TABLET.EC PO SCH (10:56)
--- NOTE | 2019-07-10 11:33 | PN ---
Progress Note, [employer] - Note Progress Note: Selected Entries 07/09/19 07/09/19 07/09/19 06:00 10:00 10:50 Breakfast 0 Lunch Supper Temperature 98.1 F 98.1 F 07/09/19 07/09/19 07/09/19 14:00 18:00 22:00 Breakfast Lunch 25% Supper Temperature 98.3 F 98.6 F 98 F 07/09/19 07/10/19 07/10/19 23:00 02:00 06:00 Breakfast Lunch Supper 50% Temperature 97.8 F 97.5 F L 07/10/19 09:08 Breakfast Lunch Supper Temperature 98.8 F Laboratory Tests 07/09/19 06:30 WBC 7.4 Comprehension much improved. She did not know that she had a stroke ( although told before) and said she was at Dr. Cruz's office. Re-oriented her several times until she believed me. She was able to retain info aftyer 10 min with distraction. Neologisms produced intermittently without awareness. Pt would benefit from continued intensive speech/language tx Provide Glucerna supplements b/n meals.
[2019-07-10] MEDS: clonazePAM 0.5 MG TABLET PO PRN (17:18)
--- NOTE | 2019-07-10 18:24 | PN ---
Progress Note, Physician History of Present Illness: Seen and examined in the hallway noted to be very agitated by the nursing staff no N/V/D no shortness of breath - Current Medication List Current Medications: Active Medications Aspirin (Ecotrin -) 81 mg PO DAILY [facility] Last Admin: 07/10/19 10:56 Dose: 81 mg Documented by: Atorvastatin Calcium (Lipitor -) 80 mg PO HS [facility] Last Admin: 07/09/19 22:30 Dose: 80 mg Documented by: Clonazepam (Klonopin -) 0.25 mg PO HS PRN PRN Reason: ANXIETY Last Admin: 07/10/19 17:18 Dose: 0.25 mg Documented by: Heparin Sodium (Porcine) (Heparin -) 5,000 unit SQ Q8H-IV [facility] Last Admin: 07/10/19 17:18 Dose: 5,000 unit Documented by: Insulin Aspart (Novolog Vial Sliding Scale -) 1 vial SQ [facility]; Protocol Last Admin: 07/10/19 17:25 Dose: Not Given Documented by: Losartan Potassium (Cozaar -) 25 mg PO DAILY [facility] Last Admin: 07/10/19 10:55 Dose: 25 mg Documented by: Metoprolol Succinate (Toprol Xl -) 50 mg PO DAILY [facility] Last Admin: 07/10/19 10:55 Dose: 50 mg Documented by: Nifedipine (Procardia Xl -) 60 mg PO BID [facility] Last Admin: 07/10/19 10:55 Dose: 60 mg Documented by: Polyethylene Glycol (Miralax (For Daily Use) -) 17 gm PO BID [facility] Last Admin: 07/10/19 10:55 Dose: 17 gm Documented by: - Objective Vital Signs: Vital Signs Temperature 97.5 F L 07/10/19 14:00 Pulse Rate 55 L 07/10/19 14:00 Respiratory Rate 16 07/10/19 14:00 Blood Pressure 119/57 L 07/10/19 14:00 O2 Sat by Pulse Oximetry (%) 98 07/10/19 09:00 Constitutional: Yes: No Distress, Calm HENT: Yes: Atraumatic Neck: Yes: Supple Cardiovascular: Yes: Regular Rate and Rhythm Respiratory: Yes: Regular, CTA Bilaterally Gastrointestinal: Yes: Normal Bowel Sounds, Soft Edema: No Labs: CBC, BMP 07/09/19 06:30 07/10/19 06:10 INR, PTT INR 1.15 (0.83-1.09) H 07/05/19 14:20 Problem List - Problems (1) NUPUR (acute kidney injury) Code(s): N17.9 - ACUTE KIDNEY FAILURE, UNSPECIFIED (2) CVA (cerebral vascular accident) Code(s): I63.9 - CEREBRAL INFARCTION, UNSPECIFIED Qualifiers: CVA mechanism: thrombosis Precerebral and cerebral artery: middle cerebral artery Laterality of affected vessel: left Qualified Code(s): I63.312 - Cerebral infarction due to thrombosis of left middle cerebral artery (3) HTN (hypertension) Code(s): I10 - ESSENTIAL (PRIMARY) HYPERTENSION Qualifiers: Hypertension type: essential hypertension Qualified Code(s): I10 - Essential (primary) hypertension (4) Contrast dye induced nephropathy Code(s): N14.1 - NEPHROPATHY INDUCED BY OTH DRUG/MEDS/BIOL SUBST; T50.8X5A - ADVERSE EFFECT OF DIAGNOSTIC AGENTS, INITIAL ENCOUNTER Assessment/Plan 73 year old woman with history of hypertension, DM type 2, hyperlipidemia, CAD s/p PCI and stenting who presented from home with slurred speech and found to have acute CVA who developed NUPUR during the hospital admission. 1. Acute kidney injury likley multifactorial in etiology: contrast nephropathy + hemodynamic changes from BP control 2. Acute CVA 3. Hypertension 4. DM Type 2 5. Pyuria w/o infection 6. CAD Renal function improving no overt electrolyte or acid.base disturbance. Pt appears euvolemic. expect renal function to continue to improve over the next several days Hold MARVIN/ARB/diuretics for now BP control with Nifedpine ER and Metorpolol Can titrate metoprolol if needed Avoid further IV contrast exposure Avoid NSAIDs Would not restart Metformin untril Cr < 1.4 Neurology and cardiology follow up pt is stable to be discharged with repeat labs in 3-5 days as an outpatient. Chuy Mann DO
--- NOTE | 2019-07-10 18:34 | PN ---
Progress Note, Physician History of Present Illness: events noted Chart reviewed Alert was agitated confused today Better now No focal deficit Seen by nephrology - Current Medication List Current Medications: Active Medications Aspirin (Ecotrin -) 81 mg PO DAILY [facility] Last Admin: 07/10/19 10:56 Dose: 81 mg Documented by: Atorvastatin Calcium (Lipitor -) 80 mg PO HS [facility] Last Admin: 07/09/19 22:30 Dose: 80 mg Documented by: Clonazepam (Klonopin -) 0.25 mg PO HS PRN PRN Reason: ANXIETY Last Admin: 07/10/19 17:18 Dose: 0.25 mg Documented by: Heparin Sodium (Porcine) (Heparin -) 5,000 unit SQ Q8H-IV [facility] Last Admin: 07/10/19 17:18 Dose: 5,000 unit Documented by: Insulin Aspart (Novolog Vial Sliding Scale -) 1 vial SQ ACHS [facility]; Protocol Last Admin: 07/10/19 17:25 Dose: Not Given Documented by: Losartan Potassium (Cozaar -) 25 mg PO DAILY [facility] Last Admin: 07/10/19 10:55 Dose: 25 mg Documented by: Metoprolol Succinate (Toprol Xl -) 50 mg PO DAILY [facility] Last Admin: 07/10/19 10:55 Dose: 50 mg Documented by: Nifedipine (Procardia Xl -) 60 mg PO BID [facility] Last Admin: 07/10/19 10:55 Dose: 60 mg Documented by: Polyethylene Glycol (Miralax (For Daily Use) -) 17 gm PO BID [facility] Last Admin: 07/10/19 10:55 Dose: 17 gm Documented by: - Objective Vital Signs: Vital Signs Temperature 97.5 F L 07/10/19 14:00 Pulse Rate 55 L 07/10/19 14:00 Respiratory Rate 16 07/10/19 14:00 Blood Pressure 119/57 L 07/10/19 14:00 O2 Sat by Pulse Oximetry (%) 98 07/10/19 09:00 Constitutional: Yes: Well Nourished Eyes: Yes: WNL HENT: Yes: WNL Neurological: Yes: Alert, Oriented, Babinski negative ...Motor Strength: WNL Labs: CBC, BMP 07/09/19 06:30 07/10/19 06:10 INR, PTT INR 1.15 (0.83-1.09) H 07/05/19 14:20 Problem List - Problems (1) CVA (cerebral vascular accident) Code(s): I63.9 - CEREBRAL INFARCTION, UNSPECIFIED Qualifiers: CVA mechanism: thrombosis Precerebral and cerebral artery: middle cerebral artery Laterality of affected vessel: left Qualified Code(s): I63.312 - Cerebral infarction due to thrombosis of left middle cerebral artery Assessment/Plan 1. fall precautions 2. Continue [place] antiplatet 3. Tight BSL control 4. Dc planning 4. haldol prn
[2019-07-10] MEDS ORDERED: LORazepam 2 MG TABLET PO PRN (20:10)
[2019-07-10] MEDS: ATORVASTATIN CA 80 MG TABLET (FP) PO SCH (22:07)
[2019-07-11] MEDS ORDERED: LORazepam 1 MG TABLET PO ONE (00:23)
[2019-07-11] MEDS: HEPARIN NA (PORCINE) 5,000 UNITS/ML 1ML VIAL SQ SCH ×3 (02:19→18:43)
--- NOTE | 2019-07-11 05:58 | PN ---
Progress Note, Physician Chief Complaint: Pt standing up (watched by aide). Does not obey commands; smiling, but then starts to cry. Later, fought with staff and walked out of room; had to be helped to the floor because of unsteadiness (did not hit head). History of Present Illness: 73-year-old black woman with PMHx CAD s/p two coronary stents (reportedly noncompliant to antiplatelets and all other medications; per pt's daughter, Ifeanyi, pt lives with her in multi-family home, but insists on handling her medications by herself), diastolic CHF, hypertension, hyperlipidemia, DM, was in her usual state of health until 1 PM 07/05/19. Patient's daughter was doing her hair when she noticed mother's sudden difficulty expressing herself. 911 was called: stroke protocol was initiated; CAT scan of the head revealed no evidence of acute pathology. According to the emergency room the patient was hemodynam ically unstable with high blood pressure; patient was stabilized, but had a seizure, with gaze deviation and tremors of the arms (no prior history of seizure, per daughter) Patient is on Plavix at home (reportedly noncompliant); in the emergency room patient was alert, awake, oriented 2. - Current Medication List Current Medications: Active Medications Aspirin (Ecotrin -) 81 mg PO DAILY [facility] Last Admin: 07/10/19 10:56 Dose: 81 mg Documented by: Atorvastatin Calcium (Lipitor -) 80 mg PO HS [facility] Last Admin: 07/10/19 22:07 Dose: 80 mg Documented by: Clonazepam (Klonopin -) 0.25 mg PO HS PRN PRN Reason: ANXIETY Last Admin: 07/10/19 17:18 Dose: 0.25 mg Documented by: Heparin Sodium (Porcine) (Heparin -) 5,000 unit SQ Q8H-IV [facility] Last Admin: 07/11/19 02:19 Dose: 5,000 unit Documented by: Insulin Aspart (Novolog Vial Sliding Scale -) 1 vial SQ ACHS [facility]; Protocol Last Admin: 07/10/19 22:08 Dose: 2 units Documented by: Losartan Potassium (Cozaar -) 25 mg PO DAILY [facility] Last Admin: 07/10/19 10:55 Dose: 25 mg Documented by: Metoprolol Succinate (Toprol Xl -) 50 mg PO DAILY [facility] Last Admin: 07/10/19 10:55 Dose: 50 mg Documented by: Nifedipine (Procardia Xl -) 60 mg PO BID [facility] Last Admin: 07/10/19 22:07 Dose: 60 mg Documented by: Polyethylene Glycol (Miralax (For Daily Use) -) 17 gm PO BID [facility] Last Admin: 07/10/19 22:08 Dose: 17 gm Documented by: - Objective Vital Signs: Vital Signs Temperature 97.7 F 07/11/19 02:00 Pulse Rate 57 L 07/11/19 02:00 Respiratory Rate 18 07/11/19 02:00 Blood Pressure 123/55 L 07/11/19 02:00 O2 Sat by Pulse Oximetry (%) 99 07/10/19 21:00 Constitutional: Yes: Anxious Eyes: Yes: WNL HENT: Yes: WNL Neck: Yes: WNL Cardiovascular: Yes: S1, S2 Respiratory: Yes: WNL Gastrointestinal: Yes: Soft Genitourinary: No: Anuria Breast(s): Yes: WNL Musculoskeletal: Yes: Muscle Weakness Extremities: Yes: Cool Edema: No Peripheral Pulses WNL: Yes Integumentary: Yes: WNL Neurological: Yes: Confusion, Unsteady Gait, Weakness, Other (s/p CVA) Psychiatric: Yes: Other Labs: CBC, BMP 07/09/19 06:30 07/10/19 06:10 INR, PTT INR 1.15 (0.83-1.09) H 07/05/19 14:20 Abnormal Lab Results 07/10/19 06:10 Chloride 108 H Anion Gap 6 L BUN 53.9 H Creatinine 1.7 H Random Glucose 130 H Magnesium 2.8 H Problem List - Problems (1) Seizure Code(s): R56.9 - UNSPECIFIED CONVULSIONS (2) Diabetes mellitus type 2 with complications Code(s): E11.8 - TYPE 2 DIABETES MELLITUS WITH UNSPECIFIED COMPLICATIONS (3) HLD (hyperlipidemia) Code(s): E78.5 - HYPERLIPIDEMIA, UNSPECIFIED Qualifiers: Hyperlipidemia type: mixed hyperlipidemia Qualified Code(s): E78.2 - Mixed hyperlipidemia (4) HTN (hypertension) Assessment/Plan: discontinue HCTZ (elevated BUN/Cr). Continue losartan, nifedipine, metoprolol. ECHO: normal LVEF; mild LVH; abnormal diastolic compliance. Code(s): I10 - ESSENTIAL (PRIMARY) HYPERTENSION Qualifiers: Hypertension type: essential hypertension Qualified Code(s): I10 - Essential (primary) hypertension (5) CVA (cerebral vascular accident) Assessment/Plan: left thalamic infarct. Episode of agitation. F/u with neurologist. Code(s): I63.9 - CEREBRAL INFARCTION, UNSPECIFIED Qualifiers: CVA mechanism: thrombosis Precerebral and cerebral artery: middle cerebral artery Laterality of affected vessel: left Qualified Code(s): I63.312 - Cerebral infarction due to thrombosis of left middle cerebral artery (6) Acute renal insufficiency Assessment/Plan: Increase in BUN/Cr Avoid dehydration. Hold diuretic. nephrology w/u noted. Code(s): N28.9 - DISORDER OF KIDNEY AND URETER, UNSPECIFIED (7) [place] cardiac risk >20% in next 10 years Assessment/Plan: Hx ? ID; s/p coronary stents. TNI < 0.02 ECHO: Normal LVEF; ?old septal ID; no acute STT changes. F/u results of prior cardiac workup. Code(s): Z91.89 - OTH PERSONAL RISK FACTORS, NOT ELSEWHERE CLASSIFIED (8) CAD (coronary artery disease) Assessment/Plan: f/u prior workup: hx ? 2 coronary stents done at ? [facility] 2 yrs ago. TNI < 0.02 EKG: sinus bradycardia; ?old septal infarct. ECHO: normal LVEF: abnormal diastolic compliance; F/u lipid profile. Code(s): I25.10 - ATHSCL HEART DISEASE OF [place] CORONARY ARTERY W/O ANG PCTRS (9) Diastolic dysfunction Code(s): I51.89 - OTHER ILL-DEFINED HEART DISEASES
[2019-07-11] MEDS: INSULIN SLIDING SCALE (NOVOLOG) 1 VIAL SQ SCH ×3 (06:34→18:39)
[2019-07-11 08:36] LABS: BLOOD UREA NITROGEN 50.6 mg/dL (7-18); CALCIUM 9.7 mg/dL (8.5-10.1); CREATININE 1.3 mg/dL (0.55-1.3)
--- NOTE | 2019-07-11 09:27 | PN ---
Progress Note, Physician Chief Complaint: Confused last night anf more agitated, sleepy today AM. History of Present Illness: DM type 2 not well controlled HTN MNG HLD OA LEFT Breast CA/lumpectomy - Current Medication List Current Medications: Active Medications Aspirin (Ecotrin -) 81 mg PO DAILY [facility] Last Admin: 07/10/19 10:56 Dose: 81 mg Documented by: Atorvastatin Calcium (Lipitor -) 80 mg PO HS [facility] Last Admin: 07/10/19 22:07 Dose: 80 mg Documented by: Clonazepam (Klonopin -) 0.25 mg PO BID [facility] Heparin Sodium (Porcine) (Heparin -) 5,000 unit SQ Q8H-IV [facility] Last Admin: 07/11/19 02:19 Dose: 5,000 unit Documented by: Insulin Aspart (Novolog Vial Sliding Scale -) 1 vial SQ ACHS [facility]; Protocol Last Admin: 07/11/19 06:34 Dose: Not Given Documented by: Losartan Potassium (Cozaar -) 25 mg PO DAILY [facility] Last Admin: 07/10/19 10:55 Dose: 25 mg Documented by: Metoprolol Succinate (Toprol Xl -) 50 mg PO DAILY [facility] Last Admin: 07/10/19 10:55 Dose: 50 mg Documented by: Nifedipine (Procardia Xl -) 60 mg PO BID [facility] Last Admin: 07/10/19 22:07 Dose: 60 mg Documented by: Polyethylene Glycol (Miralax (For Daily Use) -) 17 gm PO BID [facility] Last Admin: 07/10/19 22:08 Dose: 17 gm Documented by: - Objective Vital Signs: Vital Signs Temperature 97.9 F 07/11/19 06:00 Pulse Rate 57 L 07/11/19 06:00 Respiratory Rate 18 07/11/19 08:31 Blood Pressure 140/60 07/11/19 06:00 O2 Sat by Pulse Oximetry (%) 98 07/11/19 08:31 Constitutional: Yes: No Distress, Calm Eyes: Yes: Conjunctiva Clear, EOM Intact HENT: Yes: Atraumatic, Normocephalic Neck: Yes: Supple, Trachea Midline Cardiovascular: Yes: Regular Rate and Rhythm, S1, S2. No: Bradycardia, Tachycardia Respiratory: Yes: Regular, CTA Bilaterally Gastrointestinal: Yes: Normal Bowel Sounds, Soft. No: Abdomen, Obese ...Rectal Exam: Yes: Deferred Genitourinary: No: Anuria, Bladder Distention Breast(s): No: Dimpling, Mass Musculoskeletal: No: Joint Stiffness, Joint Swelling Extremities: No: Amputation, Calf Tenderness, Cold, Cyanosis Edema: No Peripheral Pulses WNL: Yes Integumentary: Yes: WNL ...Motor Strength: WNL Psychiatric: Yes: Alert. No: Oriented, Agitated, Suicidal Ideation Labs: CBC, BMP 07/09/19 06:30 07/11/19 06:35 INR, PTT INR 1.15 (0.83-1.09) H 07/05/19 14:20 Problem List - Problems (1) CVA (cerebral vascular accident) Assessment/Plan: MRI-C/w results CT head-left thalamic infarct-acute Carotid US-neg [facility], PT/OT Code(s): I63.9 - CEREBRAL INFARCTION, UNSPECIFIED Qualifiers: CVA mechanism: thrombosis Precerebral and cerebral artery: middle cerebral artery Laterality of affected vessel: left Qualified Code(s): I63.312 - Cerebral infarction due to thrombosis of left middle cerebral artery (2) Diabetes mellitus type 2 with complications Assessment/Plan: Follow BGM-now is well controlled. Insulin coverage and basal. Diet ADA Code(s): E11.8 - TYPE 2 DIABETES MELLITUS WITH UNSPECIFIED COMPLICATIONS (3) HLD (hyperlipidemia) Assessment/Plan: Lipitor 80 mg QD Code(s): E78.5 - HYPERLIPIDEMIA, UNSPECIFIED Qualifiers: Hyperlipidemia type: mixed hyperlipidemia Qualified Code(s): E78.2 - Mixed hyperlipidemia (4) HTN (hypertension) Assessment/Plan: Losartan 25 mg Procardia XL 60 BID Follow BP Code(s): I10 - ESSENTIAL (PRIMARY) HYPERTENSION Qualifiers: Hypertension type: essential hypertension Qualified Code(s): I10 - Essential (primary) hypertension (5) NUPUR (acute kidney injury) Assessment/Plan: improved Creat to 1.3 Follow BMP PRN PO fluids Code(s): N17.9 - ACUTE KIDNEY FAILURE, UNSPECIFIED
[2019-07-11] MEDS: LOSARTAN POTASSIUM 25 MG TABLET PO SCH (09:29)
[2019-07-11] MEDS: ASPIRIN COATED 81 MG TABLET.EC PO SCH (09:29)
[2019-07-11] MEDS: NIFEdipine E.R 60 MG TABLET PO SCH (09:30)
--- NOTE | 2019-07-11 09:57 | PN ---
Progress Note, Physician History of Present Illness: This is a 73 year old woman with a history of HTN, hyperlipidemia, CAD PCI stent 2 years ago probably LHH (noncomplient with DAPT ASA), type 2 DM who was brought in to the ED by EMS today because of slurred speech. The patient is awake and alert but confused and unable to provide much history. She says she does not remember anything that happened yesterday or today. The patietn's daughter states that she was well around 9 am. She went out, and when she came home around 12 noon, she noticed that her mother's speech was slurred. She also noticed weakness of the left side of her face. The patient then became confused and began speaking slowly. EMS was called and she was brought into the ED. The patient's daughter reports that she has not been taking her medications for some time. She has not been on aspirin or Plavix. - Current Medication List Current Medications: Active Medications Aspirin (Ecotrin -) 81 mg PO DAILY [facility] Last Admin: 07/11/19 09:29 Dose: 81 mg Documented by: Atorvastatin Calcium (Lipitor -) 80 mg PO HS [facility] Last Admin: 07/10/19 22:07 Dose: 80 mg Documented by: Clonazepam (Klonopin -) 0.25 mg PO BID PRN PRN Reason: ANXIETY Heparin Sodium (Porcine) (Heparin -) 5,000 unit SQ Q8H-IV [facility] Last Admin: 07/11/19 09:31 Dose: 5,000 unit Documented by: Insulin Aspart (Novolog Vial Sliding Scale -) 1 vial SQ ACHS [facility]; Protocol Last Admin: 07/11/19 06:34 Dose: Not Given Documented by: Losartan Potassium (Cozaar -) 25 mg PO DAILY [facility] Last Admin: 07/11/19 09:29 Dose: 25 mg Documented by: Metoprolol Succinate (Toprol Xl -) 50 mg PO DAILY [facility] Last Admin: 07/11/19 09:29 Dose: 50 mg Documented by: Nifedipine (Procardia Xl -) 60 mg PO BID [facility] Last Admin: 07/11/19 09:30 Dose: 60 mg Documented by: Polyethylene Glycol (Miralax (For Daily Use) -) 17 gm PO BID [facility] Last Admin: 07/10/19 22:08 Dose: 17 gm Documented by: - Objective Vital Signs: Vital Signs Temperature 97.9 F 07/11/19 06:00 Pulse Rate 57 L 07/11/19 06:00 Respiratory Rate 18 07/11/19 08:31 Blood Pressure 140/60 07/11/19 06:00 O2 Sat by Pulse Oximetry (%) 98 07/11/19 08:31 Eyes: Yes: WNL, Conjunctiva Clear, EOM Intact HENT: Yes: WNL, Atraumatic, Normocephalic Neck: Yes: WNL, Supple, Trachea Midline Cardiovascular: Yes: WNL, Regular Rate and Rhythm Respiratory: Yes: WNL, Regular, CTA Bilaterally Gastrointestinal: Yes: WNL, Normal Bowel Sounds Genitourinary: Yes: WNL Musculoskeletal: Yes: WNL Extremities: Yes: WNL Edema: No Integumentary: Yes: WNL ...Motor Strength: WNL Psychiatric: Yes: WNL Labs: CBC, BMP 07/09/19 06:30 07/11/19 06:35 INR, PTT INR 1.15 (0.83-1.09) H 07/05/19 14:20 Problem List - Problems (1) CVA (cerebral vascular accident) Code(s): I63.9 - CEREBRAL INFARCTION, UNSPECIFIED Qualifiers: CVA mechanism: thrombosis Precerebral and cerebral artery: middle cerebral artery Laterality of affected vessel: left Qualified Code(s): I63.312 - Cerebral infarction due to thrombosis of left middle cerebral artery (2) Ischemic stroke Code(s): I63.9 - CEREBRAL INFARCTION, UNSPECIFIED (3) Transient ischemic attack Code(s): G45.9 - TRANSIENT CEREBRAL ISCHEMIC ATTACK, UNSPECIFIED (4) Atypical chest pain Code(s): R07.89 - OTHER CHEST PAIN (5) Chest pain Code(s): R07.9 - CHEST PAIN, UNSPECIFIED (6) Diabetes mellitus type 2 with complications Code(s): E11.8 - TYPE 2 DIABETES MELLITUS WITH UNSPECIFIED COMPLICATIONS (7) HLD (hyperlipidemia) Code(s): E78.5 - HYPERLIPIDEMIA, UNSPECIFIED Qualifiers: Hyperlipidemia type: mixed hyperlipidemia Qualified Code(s): E78.2 - Mixed hyperlipidemia (8) HTN (hypertension) Code(s): I10 - ESSENTIAL (PRIMARY) HYPERTENSION Qualifiers: Hypertension type: essential hypertension Qualified Code(s): I10 - Essential (primary) hypertension (9) Hyperkalemia Code(s): E87.5 - HYPERKALEMIA (10) Hypokalemia due to loss of potassium Code(s): E87.6 - HYPOKALEMIA (11) Pain of left calf Code(s): M79.662 - PAIN IN LEFT LOWER LEG (12) Shortness of breath Code(s): R06.02 - SHORTNESS OF BREATH Assessment/Plan - Problems (1) Seizure Code(s): R56.9 - UNSPECIFIED CONVULSIONS (2) Diabetes mellitus type 2 with complications Code(s): E11.8 - TYPE 2 DIABETES MELLITUS WITH UNSPECIFIED COMPLICATIONS (3) HLD (hyperlipidemia) Code(s): E78.5 - HYPERLIPIDEMIA, UNSPECIFIED Qualifiers: Hyperlipidemia type: mixed hyperlipidemia Qualified Code(s): E78.2 - Mixed hyperlipidemia (4) HTN (hypertension) Assessment/Plan: discontinue HCTZ (elevated BUN/Cr). Continue losartan, nifedipine, metoprolol. ECHO: normal LVEF; mild LVH; abnormal diastolic compliance. Code(s): I10 - ESSENTIAL (PRIMARY) HYPERTENSION Qualifiers: Hypertension type: essential hypertension Qualified Code(s): I10 - Essential (primary) hypertension (5) CVA (cerebral vascular accident) Assessment/Plan: left thalamic infarct. Episode of agitation. F/u with neurologist. Code(s): I63.9 - CEREBRAL INFARCTION, UNSPECIFIED Qualifiers: CVA mechanism: thrombosis Precerebral and cerebral artery: middle cerebral artery Laterality of affected vessel: left Qualified Code(s): I63.312 - Cerebral infarction due to thrombosis of left middle cerebral artery (6) Acute renal insufficiency Assessment/Plan: Increase in BUN/Cr Avoid dehydration. Hold diuretic. nephrology w/u noted. Code(s): N28.9 - DISORDER OF KIDNEY AND URETER, UNSPECIFIED (7) [place] cardiac risk >20% in next 10 years Assessment/Plan: Hx ? MD; s/p coronary stents. TNI < 0.02 ECHO: Normal LVEF; ?old septal MD; no acute STT changes. F/u results of prior cardiac workup. Code(s): Z91.89 - OTH PERSONAL RISK FACTORS, NOT ELSEWHERE CLASSIFIED (8) CAD (coronary artery disease) Assessment/Plan: f/u prior workup: hx ? 2 coronary stents done at ? [facility] [place] 2 yrs ago. TNI < 0.02 EKG: sinus bradycardia; ?old septal infarct. ECHO: normal LVEF: abnormal diastolic compliance; F/u lipid profile. Code(s): I25.10 - ATHSCL HEART DISEASE OF [place] CORONARY ARTERY W/O ANG PCTRS (9) Diastolic dysfunction Code(s): I51.89 - OTHER ILL-DEFINED HEART DISEASES
[2019-07-11] MEDS ORDERED: clonazePAM 0.5 MG TABLET PO SCH (10:00)
[2019-07-11] MEDS ORDERED: clonazePAM 0.5 MG TABLET PO PRN (10:00)
--- NOTE | 2019-07-11 12:19 | PN ---
Progress Note, Physician History of Present Illness: Seen and examined at the bedside sleeping was agitated overnight making urine tolerating diet - Current Medication List Current Medications: Active Medications Aspirin (Ecotrin -) 81 mg PO DAILY [facility] Last Admin: 07/11/19 09:29 Dose: 81 mg Documented by: Atorvastatin Calcium (Lipitor -) 80 mg PO HS [facility] Last Admin: 07/10/19 22:07 Dose: 80 mg Documented by: Clonazepam (Klonopin -) 0.25 mg PO BID PRN PRN Reason: ANXIETY Heparin Sodium (Porcine) (Heparin -) 5,000 unit SQ Q8H-IV [facility] Last Admin: 07/11/19 09:31 Dose: 5,000 unit Documented by: Insulin Aspart (Novolog Vial Sliding Scale -) 1 vial SQ [facility]; Protocol Last Admin: 07/11/19 06:34 Dose: Not Given Documented by: Losartan Potassium (Cozaar -) 25 mg PO DAILY [facility] Last Admin: 07/11/19 09:29 Dose: 25 mg Documented by: Metoprolol Succinate (Toprol Xl -) 50 mg PO DAILY [facility] Last Admin: 07/11/19 09:29 Dose: 50 mg Documented by: Nifedipine (Procardia Xl -) 60 mg PO BID [facility] Last Admin: 07/11/19 09:30 Dose: 60 mg Documented by: Polyethylene Glycol (Miralax (For Daily Use) -) 17 gm PO BID [facility] Last Admin: 07/10/19 22:08 Dose: 17 gm Documented by: - Objective Vital Signs: Vital Signs Temperature 97.9 F 07/11/19 06:00 Pulse Rate 57 L 07/11/19 06:00 Respiratory Rate 18 07/11/19 08:31 Blood Pressure 140/60 07/11/19 06:00 O2 Sat by Pulse Oximetry (%) 98 07/11/19 08:31 Constitutional: Yes: No Distress HENT: Yes: Atraumatic Neck: Yes: Supple Cardiovascular: Yes: Regular Rate and Rhythm. No: Murmur, Rub Respiratory: Yes: Regular, CTA Bilaterally Gastrointestinal: Yes: Normal Bowel Sounds, Soft. No: Tenderness Edema: No Labs: CBC, BMP 07/09/19 06:30 07/11/19 06:35 INR, PTT INR 1.15 (0.83-1.09) H 07/05/19 14:20 Problem List - Problems (1) NUPUR (acute kidney injury) Code(s): N17.9 - ACUTE KIDNEY FAILURE, UNSPECIFIED (2) CVA (cerebral vascular accident) Code(s): I63.9 - CEREBRAL INFARCTION, UNSPECIFIED Qualifiers: CVA mechanism: thrombosis Precerebral and cerebral artery: middle cerebral artery Laterality of affected vessel: left Qualified Code(s): I63.312 - Cerebral infarction due to thrombosis of left middle cerebral artery (3) HTN (hypertension) Code(s): I10 - ESSENTIAL (PRIMARY) HYPERTENSION Qualifiers: Hypertension type: essential hypertension Qualified Code(s): I10 - Essential (primary) hypertension (4) Contrast dye induced nephropathy Code(s): N14.1 - NEPHROPATHY INDUCED BY OTH DRUG/MEDS/BIOL SUBST; T50.8X5A - ADVERSE EFFECT OF DIAGNOSTIC AGENTS, INITIAL ENCOUNTER Assessment/Plan 73 year old woman with history of hypertension, DM type 2, hyperlipidemia, CAD s/p PCI and stenting who presented from home with slurred speech and found to have acute CVA who developed NUPUR during the hospital admission. 1. Acute kidney injury likley multifactorial in etiology: contrast nephropathy + hemodynamic changes from BP control 2. Acute CVA 3. Hypertension 4. DM Type 2 5. Pyuria w/o infection 6. CAD Renal continue to improve no overt electrolyte or acid.base disturbance. Pt appears euvolemic. Hold MARVIN/ARB for now can restart diuretics if there is any evidence of volume expansion (edema) BP control with Nifedpine ER and Metorpolol Can titrate metoprolol if needed Avoid further IV contrast exposure Avoid NSAIDs Would not restart Metformin untril Cr < 1.4 Neurology and cardiology follow up pt is stable to be discharged with repeat labs in 3-5 days as an outpatient with PMD. Chuy Mann DO
--- NOTE | 2019-07-11 13:16 | PN ---
Progress Note, GENERAL MANAGER IN TRAINING - Note Progress Note: Selected Entries 07/10/19 07/10/19 07/10/19 02:00 06:00 09:08 Breakfast Lunch Supper Temperature 97.8 F 97.5 F L 98.8 F 07/10/19 07/10/19 07/10/19 11:18 14:00 17:50 Breakfast 75% Lunch 75% Supper Temperature 97.5 F L 98.0 F 07/10/19 07/10/19 07/11/19 20:35 22:00 02:00 Breakfast Lunch Supper 75% Temperature 97.8 F 97.7 F 07/11/19 06:00 Breakfast Lunch Supper Temperature 97.9 F Laboratory Tests 07/09/19 06:30 WBC 7.4 Pt continues to be confused. Family report pt with "sharp" premorbidly, with no memory or word finding difficulty. Family asked me about d/c plan and are planning on taking pt home with homecare. I agree that pt is not presently able to participate/benefit from [place] rehab.
--- NOTE | 2019-07-11 18:16 | PN ---
Progress Note, Physician History of Present Illness: eevents noted chart review had Lethargic No report of any headache Family is at the bedside Slightly confused - Current Medication List Current Medications: Active Medications Aspirin (Ecotrin -) 81 mg PO DAILY [facility] Last Admin: 07/11/19 09:29 Dose: 81 mg Documented by: Atorvastatin Calcium (Lipitor -) 80 mg PO HS [facility] Last Admin: 07/10/19 22:07 Dose: 80 mg Documented by: Clonazepam (Klonopin -) 0.25 mg PO BID PRN PRN Reason: ANXIETY Heparin Sodium (Porcine) (Heparin -) 5,000 unit SQ Q8H-IV [facility] Last Admin: 07/11/19 09:31 Dose: 5,000 unit Documented by: Insulin Aspart (Novolog Vial Sliding Scale -) 1 vial SQ ACHS [facility]; Protocol Last Admin: 07/11/19 12:20 Dose: Not Given Documented by: Losartan Potassium (Cozaar -) 25 mg PO DAILY [facility] Last Admin: 07/11/19 09:29 Dose: 25 mg Documented by: Metoprolol Succinate (Toprol Xl -) 50 mg PO DAILY [facility] Last Admin: 07/11/19 09:29 Dose: 50 mg Documented by: Nifedipine (Procardia Xl -) 60 mg PO BID [facility] Last Admin: 07/11/19 09:30 Dose: 60 mg Documented by: Polyethylene Glycol (Miralax (For Daily Use) -) 17 gm PO BID [facility] Last Admin: 07/10/19 22:08 Dose: 17 gm Documented by: - Objective Vital Signs: Vital Signs Temperature 97.8 F 07/11/19 14:53 Pulse Rate 55 L 07/11/19 14:53 Respiratory Rate 20 07/11/19 14:53 Blood Pressure 137/58 L 07/11/19 14:53 O2 Sat by Pulse Oximetry (%) 98 07/11/19 08:31 Constitutional: Yes: Well Nourished Eyes: Yes: WNL HENT: Yes: WNL Neck: Yes: WNL Neurological: Yes: Alert, Oriented, Babinski positive ...Motor Strength: WNL Labs: CBC, BMP 07/09/19 06:30 07/11/19 06:35 INR, PTT INR 1.15 (0.83-1.09) H 07/05/19 14:20 Problem List - Problems (1) CVA (cerebral vascular accident) Code(s): I63.9 - CEREBRAL INFARCTION, UNSPECIFIED Qualifiers: CVA mechanism: thrombosis Precerebral and cerebral artery: middle cerebral artery Laterality of affected vessel: left Qualified Code(s): I63.312 - Cerebral infarction due to thrombosis of left middle cerebral artery Assessment/Plan follow-up precautions Follow up with the storage and backup administrator the creatinine is normal Discharge planning
[2019-07-11] MEDS: POLYETHYLENE GLYCOL 3350 119 GM BTL PO SCH (18:39)
[2019-07-11 19:15] VITALS: BP 128/65; PULSE 54; TEMP 97
== END 2019-07-11 20:35 | disposition home or self-care (01) | DRG 65 ==
LOC: JER 14:00 → JERBED 15:39 → J4S 17:28
PROVIDERS: ADMIT Internal Medicine; ATTEND Internal Medicine
DX: I63.9 Cerebral infarction, unspecified (principal); G93.40 Encephalopathy, unspecified; N17.9 Acute kidney failure, unspecified; I16.1 Hypertensive emergency; I25.10 Atherosclerotic heart disease of native coronary artery without angina pectoris; I10 Essential (primary) hypertension; E78.5 Hyperlipidemia, unspecified; E11.65 Type 2 diabetes mellitus with hyperglycemia; E87.6 Hypokalemia; R45.1 Restlessness and agitation; Z95.5 Presence of coronary angioplasty implant and graft
CPT/HCPCS: 36415; 36600; 70450-TC; 70496-TC; 70551-TC; 74018-TC-FY; 80048; 80053; 80061; 81003; 82140; 82550; 82803; 82962; 83036; 83090; 83605; 83721; 83735; 84100; 84443; 84484; 85025; 85027; 85610; 85730; 87086; 93005; 93010; 93306-TC; 93880-TC; 97116-GP; 97162-GP; 99291; J1644

== ENCOUNTER 2020-04-17 14:32 | Inpatient (IN) | payer OTHER ==
[2020-04-17 14:52] VITALS: BMI 25.0
[2020-04-17 16:08] LABS: EOS % 3.6 % (0-4.5); HEMATOCRIT 33.7 % (32.4-45.2); HEMOGLOBIN 10.9 GM/dL (10.7-15.3); LYMPH % 32.1 % (8-40); MCH 27.6 pg (25.7-33.7); MCHC 32.2 g/dl (32.0-36.0); MEAN CELL VOLUME 85.8 fl (80-96); MEAN PLT VOLUME 8.9 fl (7.5-11.1); MONO % 8.9 % (3.8-10.2); NEUT % 54.4 % (42.8-82.8); PLATELET COUNT 209 K/MM3 (134-434); RBC 3.93 M/mm3 (3.60-5.2); RDW 14.3 % (11.6-15.6); WHITE BLOOD COUNT 5.4 K/mm3 (4.0-10.0)
[2020-04-17] MEDS ORDERED: CLOPIDOGREL BISULFATE 75 MG TABLET (FP) PO ONE (16:21)
[2020-04-17 16:29] LABS: CHLORIDE 110 mmol/L (98-107); SODIUM 143 mmol/L (136-145)
[2020-04-17 16:31] LABS: ALBUMIN 3.6 g/dl (3.4-5.0); ANION GAP 7 MMOL/L (8-16); CALCIUM 9.2 mg/dL (8.5-10.1); CHOLESTEROL 131 mg/dL (50-200); CO2 26 mmol/L (21-32); TRIGLYCERIDES 128 mg/dL (0-150)
[2020-04-17 16:32] LABS: BLOOD UREA NITROGEN 17.5 mg/dL (7-18); GLUCOSE,RANDOM 139 mg/dL (74-106); INR 1.19 (0.83-1.09); LDL CHOLESTEROL (ONLY SJRH) 65 mg/dL (5-100); PROTHROMBIN TIME (PATIENT) 14.6 SEC (9.7-13.0)
[2020-04-17 16:33] LABS: HDL CHOLESTEROL 47 mg/dL (40-60)
[2020-04-17 16:34] LABS: SGPT/ALT 27 U/L (13-61)
[2020-04-17 16:35] LABS: ACTIVATED PTT 32.6 SECONDS (25.2-36.5); SGOT/AST 12 U/L (15-37)
[2020-04-17 16:36] LABS: BILIRUBIN,TOTAL 0.3 mg/dL (0.2-1); TOT PROT 7.1 g/dl (6.4-8.2)
[2020-04-17 16:37] LABS: ALK PHOS 66 U/L (45-117)
[2020-04-17] MEDS ORDERED: CLOPIDOGREL BISULFATE 75 MG TABLET (FP) ONE (16:44)
[2020-04-17] MEDS ORDERED: clonazePAM 0.5 MG TABLET PO ONE (18:52)
[2020-04-17] MEDS ORDERED: clonazePAM 0.5 MG TABLET ONE (20:04)
[2020-04-17 21:32] LABS: EPI CELLS 19 /uL (0-25.1); HYALINE CASTS 0 /uL (0-3.1); URINE APPEARANCE CLEAR; URINE BACTERIA 92 /uL (0-1359); URINE BILIRUBIN NEGATIVE (NEGATIVE); URINE COLOR YELLOW; URINE GLUCOSE (UA) NEGATIVE (NEGATIVE); URINE KETONE NEGATIVE (NEGATIVE); URINE LEUK ESTERASE 1+ (NEGATIVE); URINE NITRITE NEGATIVE (NEGATIVE); URINE PROTEIN NEGATIVE (NEGATIVE); URINE RBC 5 /uL (0-23.9); URINE UROBILINOGEN 0.2 mg/dL (0.2-1.0); URINE WBC 53 /uL (0-25.8)
[2020-04-17 21:50] LABS: CHOLESTEROL 148 mg/dL (50-200); TRIGLYCERIDES 86 mg/dL (0-150)
[2020-04-17 21:51] LABS: LDL CHOLESTEROL (ONLY SJRH) 74 mg/dL (5-100)
[2020-04-17 21:53] LABS: HDL CHOLESTEROL 55 mg/dL (40-60)
[2020-04-17] MEDS ORDERED: ATORVASTATIN CA 80 MG TABLET (FP) ONE (22:13)
[2020-04-17] MEDS ORDERED: NIFEdipine E.R. 30 MG TABLET ONE (22:13)
[2020-04-17] MEDS: ATORVASTATIN CA 80 MG TABLET (FP) PO SCH (22:22)
[2020-04-17] MEDS: NIFEdipine E.R 60 MG TABLET PO SCH (22:23)
[2020-04-17] MEDS: POLYETHYLENE GLYCOL 3350 119 GM BTL PO SCH (22:24)
[2020-04-17] MEDS: INSULIN SLIDING SCALE (NOVOLOG) 1 VIAL SQ SCH (22:24)
[2020-04-17] MEDS ORDERED: MELATONIN 5 MG TABLETS PO ONE (23:50)
[2020-04-17] MEDS ORDERED: MELATONIN 5 MG TABLETS ONE (23:54)
[2020-04-18 06:50] LABS: BASO % 0.8 % (0-2.0); EOS % 4.4 % (0-4.5); HEMATOCRIT 37.4 % (32.4-45.2); HEMOGLOBIN 12.2 GM/dL (10.7-15.3); LYMPH % 34.9 % (8-40); MCH 27.7 pg (25.7-33.7); MCHC 32.5 g/dl (32.0-36.0); MEAN CELL VOLUME 85.2 fl (80-96); MONO % 7.4 % (3.8-10.2); NEUT % 52.5 % (42.8-82.8); PLATELET COUNT 238 K/MM3 (134-434); RBC 4.39 M/mm3 (3.60-5.2); RDW 14.2 % (11.6-15.6); WHITE BLOOD COUNT 6.8 K/mm3 (4.0-10.0)
[2020-04-18 07:08] LABS: POTASSIUM 3.3 mmol/L (3.5-5.1)
[2020-04-18 07:12] LABS: ALBUMIN 4.2 g/dl (3.4-5.0); BLOOD UREA NITROGEN 12.7 mg/dL (7-18); CALCIUM 10.3 mg/dL (8.5-10.1)
[2020-04-18 07:15] LABS: CREATININE 0.8 mg/dL (0.55-1.3)
[2020-04-18 07:17] LABS: BILIRUBIN,TOTAL 0.5 mg/dL (0.2-1); TOT PROT 7.8 g/dl (6.4-8.2)
[2020-04-18] MEDS: INSULIN SLIDING SCALE (NOVOLOG) 1 VIAL SQ SCH ×4 (07:31→21:36)
[2020-04-18] MEDS ORDERED: POTASSIUM CHLORIDE TABS 20 MEQ TABLET.ER (FP) PO ONE (08:59)
[2020-04-18] MEDS ORDERED: ASPIRIN 325 MG ENTERIC COATED TABLET (FP) PO SCH (10:00)
[2020-04-18] MEDS: LOSARTAN POTASSIUM 25 MG TABLET PO SCH (11:41)
[2020-04-18] MEDS: NIFEdipine E.R 60 MG TABLET PO SCH ×2 (11:42→21:23)
[2020-04-18] MEDS: CLOPIDOGREL BISULFATE 75 MG TABLET (FP) PO SCH (11:42)
[2020-04-18] MEDS: POLYETHYLENE GLYCOL 3350 119 GM BTL PO SCH ×2 (12:19→21:37)
[2020-04-18] MEDS ORDERED: PT OWN MED DRAWER 7, Y5N ONE (21:21)
[2020-04-18] MEDS: ATORVASTATIN CA 80 MG TABLET (FP) PO SCH (21:23)
[2020-04-19] MEDS: INSULIN SLIDING SCALE (NOVOLOG) 1 VIAL SQ SCH ×2 (07:01→11:47)
[2020-04-19 08:10] LABS: POTASSIUM 4.1 mmol/L (3.5-5.1)
[2020-04-19 08:17] LABS: CALCIUM 9.7 mg/dL (8.5-10.1)
[2020-04-19 08:18] LABS: CREATININE 1.1 mg/dL (0.55-1.3)
[2020-04-19] MEDS: CLOPIDOGREL BISULFATE 75 MG TABLET (FP) PO SCH (09:44)
[2020-04-19] MEDS: LOSARTAN POTASSIUM 25 MG TABLET PO SCH (09:44)
[2020-04-19] MEDS: POLYETHYLENE GLYCOL 3350 119 GM BTL PO SCH (09:51)
[2020-04-19] MEDS ORDERED: ASPIRIN COATED 81 MG TABLET.EC PO SCH (10:00)
[2020-04-19] MEDS ORDERED: levETIRAcetam 250 MG TABLET PO SCH (10:30)
[2020-04-19] MEDS ORDERED: VALPROIC ACID 250 MG CAPSULE PO SCH (10:30)
[2020-04-19] MEDS: NIFEdipine E.R 60 MG TABLET PO SCH (10:45)
[2020-04-19 10:58] VITALS: BP 133/65; PULSE 49; TEMP 97.9
[2020-04-19] MEDS ORDERED: PT OWN MED DRAWER 7, Y5N ONE (13:36)
[2020-04-20] MEDS ORDERED: MIRTAZAPINE 15 MG TABLET (FP) PO SCH (22:00)
== END 2020-04-19 18:01 | disposition home health service (06) | DRG 65 ==
LOC: JER 14:32 → JERBED 16:22 → J4W 04-18 03:05
PROVIDERS: ADMIT Internal Medicine; ATTEND Internal Medicine
DX: I63.9 Cerebral infarction, unspecified (principal); G81.91 Hemiplegia, unspecified affecting right dominant side; R47.01 Aphasia; I10 Essential (primary) hypertension; E78.5 Hyperlipidemia, unspecified; E11.9 Type 2 diabetes mellitus without complications; Z85.3 Personal history of malignant neoplasm of breast; I25.10 Atherosclerotic heart disease of native coronary artery without angina pectoris; E11.42 Type 2 diabetes mellitus with diabetic polyneuropathy; F03.90 Unspecified dementia, unspecified severity, without behavioral disturbance, psychotic disturbance, mood disturbance, and anxiety; E87.6 Hypokalemia; Z95.5 Presence of coronary angioplasty implant and graft
CPT/HCPCS: 36415; 71045-TC-FY; 71250-TC; 80048; 80053; 80061; 80164; 81003; 82550; 82962; 83036; 83605; 83721; 83735; 84484; 85025; 85610; 85730; 86850; 86900; 86901; 93005; 93010; 97116-GP; 97161-GP; 99285-25; C9803; U0003

== ENCOUNTER 2021-05-12 18:18 | Emergency (ER) | payer OTHER ==
[2021-05-12 19:13] VITALS: BP 140/74; PULSE 80; TEMP 98; BMI 24.1
== END 2021-05-12 20:46 | disposition left against medical advice (07) ==
LOC: JER 18:18
DX: R41.9 Unspecified symptoms and signs involving cognitive functions and awareness (principal); G45.9 Transient cerebral ischemic attack, unspecified
CPT/HCPCS: 99281-25

== ENCOUNTER 2021-11-15 11:14 | Inpatient (IN) | payer OTHER ==
[2021-11-15] MEDS ORDERED: SODIUM CHLORIDE 0.9% 1000 ML INFUS.BAG IV ONE (11:41)
[2021-11-15 11:56] VITALS: BMI 25.7
[2021-11-15 12:21] LABS: BASO % 0.2 % (0-2.0); HEMOGLOBIN 10.9 GM/dL (10.7-15.3); LYMPH % 3.4 % (8-40); MCH 27.3 pg (25.7-33.7); MCHC 32.1 g/dl (32.0-36.0); MEAN PLT VOLUME 10.3 fl (7.5-11.1); MONO % 17.7 % (3.8-10.2); NEUT % 78.7 % (42.8-82.8); PLATELET COUNT 250 10^3/uL (134-434); RDW 15.5 % (11.6-15.6); VENOUS BASE EXCESS -6.2 mmol/L (-2-2); VENOUS PCO2 31.5 mmHg (38-52); VENOUS PH 7.375 (7.310-7.410); WHITE BLOOD COUNT 15.5 K/mm3 (4.0-10.0)
[2021-11-15 12:28] LABS: INR 1.19 (0.83-1.09); PROTHROMBIN TIME (PATIENT) 13.7 SEC (9.7-13.0)
[2021-11-15 12:31] LABS: ACTIVATED PTT 26.6 SECONDS (25.2-36.5)
[2021-11-15 12:56] LABS: CHLORIDE 98 mmol/L (98-107); SODIUM 134 mmol/L (136-145)
[2021-11-15 12:58] LABS: LACTIC ACID 4.6 mmol/L (0.4-2.0)
[2021-11-15 12:59] LABS: ALBUMIN 3.6 g/dl (3.4-5.0); ANION GAP 18 MMOL/L (8-16); BLOOD UREA NITROGEN 83.7 mg/dL (7-18); CALCIUM 9.2 mg/dL (8.5-10.1); CO2 19 mmol/L (21-32)
[2021-11-15 13:02] LABS: CREATININE 4.6 mg/dL (0.55-1.3); SGOT/AST 15 U/L (15-37); SGPT/ALT 22 U/L (13-61)
[2021-11-15 13:04] LABS: TOT PROT 7.2 g/dl (6.4-8.2)
[2021-11-15 13:05] LABS: ALK PHOS 48 U/L (45-117)
[2021-11-15 13:08] LABS: LDH 196 U/L (84-246)
[2021-11-15 13:11] LABS: BILIRUBIN,TOTAL 0.3 mg/dL (0.2-1); GLUCOSE,RANDOM 542 mg/dL (74-106)
[2021-11-15] MEDS ORDERED: SODIUM CHLORIDE 0.9% 500 ML INFUS.BAG IV ONE (13:24)
[2021-11-15] MEDS ORDERED: AZITHROMYCIN IVPB 500 MG in DEXTROSE 5%-WATER - 250 ML IVPB ONE (13:28)
[2021-11-15] MEDS ORDERED: PIPERACILLIN/TAZOB 4.5 GM 4.5 GM in DEXTROSE 5%-WATER 100 ML IVPB SCH (13:30)
[2021-11-15] MEDS ORDERED: PIPERACILLIN/TAZOB 4.5 GM 4.5 GM in DEXTROSE 5%-WATER 100 ML IVPB ONE ×2 (13:47→14:45)
[2021-11-15] MEDS ORDERED: PIPERACILLIN/TAZOB 4.5 GM 4.5 GM/100 ML BAG IVPB ONE (14:51)
[2021-11-15] MEDS ORDERED: PIPERACILLIN/TAZOB 2.25 GM 2.25 GM in DEXTROSE 5%-WATER - 50 ML IVPB SCH (15:00)
[2021-11-15] MEDS ORDERED: INSULIN (NOVOLOG) ASPART 100 UNITS/ML 10ML VIAL SQ ONE ×2 (15:13→16:57)
[2021-11-15] MEDS ORDERED: AZITHROMYCIN IVPB 500 MG/250 ML BAG IVPB ONE (15:48)
[2021-11-15] MEDS ORDERED: INSULIN SLIDING SCALE (NOVOLOG) 1 VIAL SQ SCH ×2 (16:15→16:24)
[2021-11-15] MEDS: SODIUM CHLORIDE 1,000 ML IV SCH (17:01)
[2021-11-15 17:10] LABS: CHLORIDE 100 mmol/L (98-107); SODIUM 136 mmol/L (136-145)
[2021-11-15 17:12] LABS: CALCIUM 8.5 mg/dL (8.5-10.1)
[2021-11-15 17:13] LABS: ANION GAP 16 MMOL/L (8-16); BLOOD UREA NITROGEN 88.4 mg/dL (7-18); CO2 20 mmol/L (21-32)
[2021-11-15 17:16] LABS: CREATININE 4.3 mg/dL (0.55-1.3); SGOT/AST 21 U/L (15-37); SGPT/ALT 16 U/L (13-61)
[2021-11-15 17:17] LABS: BILIRUBIN,TOTAL 0.2 mg/dL (0.2-1)
[2021-11-15 17:18] LABS: TOT PROT 6.2 g/dl (6.4-8.2)
[2021-11-15 17:19] LABS: ALK PHOS 49 U/L (45-117)
[2021-11-15 17:22] LABS: GLUCOSE,RANDOM 571 mg/dL (74-106); LACTIC ACID 3.8 mmol/L (0.4-2.0)
[2021-11-15] MEDS: INSULIN SLIDING SCALE (NOVOLOG) 1 VIAL SQ SCH (19:27)
[2021-11-15] MEDS ORDERED: HEPARIN NA (PORCINE) 5,000 UNITS/ML 1ML VIAL ONE (21:51)
[2021-11-15] MEDS: HEPARIN NA (PORCINE) 5,000 UNITS/ML 1ML VIAL SQ SCH (22:05)
[2021-11-16] MEDS ORDERED: DEXTROSE 5%-WATER - 50 ML IVPB ONE ×2 (01:05→08:57)
[2021-11-16] MEDS ORDERED: PIPERACILLIN/TAZOBACTAM 2.25 GM VIAL IVPB ONE ×3 (01:05→16:56)
[2021-11-16] MEDS: PIPERACILLIN/TAZOB 2.25 GM 2.25 GM in DEXTROSE 5%-WATER - 50 ML IVPB SCH ×4 (01:23→17:32)
[2021-11-16] MEDS: INSULIN SLIDING SCALE (NOVOLOG) 1 VIAL SQ SCH ×4 (01:24→17:13)
[2021-11-16] MEDS: HEPARIN NA (PORCINE) 5,000 UNITS/ML 1ML VIAL SQ SCH ×3 (06:59→22:25)
[2021-11-16 08:11] LABS: URINE APPEARANCE CLOUDY; URINE BILIRUBIN NEGATIVE (NEGATIVE); URINE COLOR YELLOW; URINE GLUCOSE (UA) 1+ (NEGATIVE); URINE KETONE TRACE (NEGATIVE); URINE LEUK ESTERASE NEGATIVE (NEGATIVE); URINE NITRITE NEGATIVE (NEGATIVE); URINE PROTEIN TRACE (NEGATIVE); URINE UROBILINOGEN 0.2 mg/dL (0.2-1.0)
[2021-11-16 10:20] LABS: HEMATOCRIT 29.5 % (32.4-45.2); HEMOGLOBIN 9.7 GM/dL (10.7-15.3); MEAN CELL VOLUME 84.1 fl (80-96); RBC 3.51 M/mm3 (3.60-5.2); WHITE BLOOD COUNT 9.7 K/mm3 (4.0-10.0)
[2021-11-16 10:21] LABS: BASO % 0.1 % (0-2.0); LYMPH % 10.1 % (8-40); MCH 27.7 pg (25.7-33.7); MEAN PLT VOLUME 9.9 fl (7.5-11.1); MONO % 19.8 % (3.8-10.2); PLATELET COUNT 245 10^3/uL (134-434)
[2021-11-16 10:38] LABS: CALCIUM 8.7 mg/dL (8.5-10.1)
[2021-11-16 10:39] LABS: ALBUMIN 2.6 g/dl (3.4-5.0); BLOOD UREA NITROGEN 93.1 mg/dL (7-18)
[2021-11-16 10:42] LABS: CREATININE 3.3 mg/dL (0.55-1.3)
[2021-11-16 10:43] LABS: TOT PROT 5.9 g/dl (6.4-8.2)
[2021-11-16 10:44] LABS: BILIRUBIN,TOTAL 0.2 mg/dL (0.2-1)
[2021-11-16] MEDS: SODIUM CHLORIDE 1,000 ML IV SCH (11:19)
[2021-11-16] MEDS: VALPROIC ACID 250 MG CAPSULE PO SCH (11:20)
[2021-11-16] MEDS: CLOPIDOGREL BISULFATE 75 MG TABLET (FP) PO SCH (11:20)
[2021-11-16] MEDS: SODIUM CHLORIDE 0.45%/POT 20 MEQ/1,000 ML INFUS.BAG IV SCH (13:37)
[2021-11-16] MEDS ORDERED: PIPERACILLIN/TAZOB 2.25 GM 2.25 GM in DEXTROSE 5%-WATER - 50 ML IVPB SCH (15:00)
[2021-11-17] MEDS ORDERED: PIPERACILLIN/TAZOB 2.25 GM 2.25 GM in DEXTROSE 5%-WATER - 50 ML IVPB SCH ×2
[2021-11-17] MEDS: INSULIN SLIDING SCALE (NOVOLOG) 1 VIAL SQ SCH ×4 (00:06→17:57)
[2021-11-17] MEDS ORDERED: PIPERACILLIN/TAZOBACTAM 2.25 GM VIAL IVPB ONE ×3 (01:34→18:16)
[2021-11-17] MEDS: PIPERACILLIN/TAZOB 2.25 GM 2.25 GM in DEXTROSE 5%-WATER - 50 ML IVPB SCH ×3 (02:06→18:59)
[2021-11-17] MEDS: HEPARIN NA (PORCINE) 5,000 UNITS/ML 1ML VIAL SQ SCH ×3 (06:33→22:38)
[2021-11-17] MEDS ORDERED: DEXTROSE 5%-WATER - 50 ML IVPB ONE ×2 (09:12→18:17)
[2021-11-17] MEDS: CLOPIDOGREL BISULFATE 75 MG TABLET (FP) PO SCH (09:43)
[2021-11-17] MEDS: VALPROIC ACID 250 MG CAPSULE PO SCH (09:43)
[2021-11-17 09:44] LABS: BASO % 0.4 % (0-2.0); EOS % 0.1 % (0-4.5); HEMATOCRIT 27.7 % (32.4-45.2); HEMOGLOBIN 8.9 GM/dL (10.7-15.3); LYMPH % 10.2 % (8-40); MCH 27.7 pg (25.7-33.7); MCHC 32.3 g/dl (32.0-36.0); MEAN CELL VOLUME 85.6 fl (80-96); MONO % 18.4 % (3.8-10.2); NEUT % 70.9 % (42.8-82.8); PLATELET COUNT 272 10^3/uL (134-434); RBC 3.23 M/mm3 (3.60-5.2); RDW 15.4 % (11.6-15.6); WHITE BLOOD COUNT 11.8 K/mm3 (4.0-10.0)
[2021-11-17 09:50] LABS: CALCIUM 9.1 mg/dL (8.5-10.1)
[2021-11-17 09:51] LABS: ALBUMIN 2.5 g/dl (3.4-5.0); MAGNESIUM 2.5 mg/dL (1.8-2.4)
[2021-11-17 09:54] LABS: CREATININE 2.1 mg/dL (0.55-1.3)
[2021-11-17 09:55] LABS: BILIRUBIN,TOTAL 0.3 mg/dL (0.2-1)
[2021-11-17 10:04] LABS: BLOOD UREA NITROGEN 64.9 mg/dL (7-18)
[2021-11-17] MEDS: SODIUM CHLORIDE 0.45%/POT 20 MEQ/1,000 ML INFUS.BAG IV SCH (13:29)
[2021-11-17] MEDS: AMINO ACIDS 4.25%/D5W 1,000 ML IV SCH (17:58)
[2021-11-18] MEDS: INSULIN SLIDING SCALE (NOVOLOG) 1 VIAL SQ SCH ×4 (00:04→19:57)
[2021-11-18] MEDS ORDERED: DEXTROSE 5%-WATER - 50 ML IVPB ONE ×3 (00:54→19:35)
[2021-11-18] MEDS ORDERED: PIPERACILLIN/TAZOBACTAM 2.25 GM VIAL IVPB ONE ×3 (00:54→19:35)
[2021-11-18] MEDS: PIPERACILLIN/TAZOB 2.25 GM 2.25 GM in DEXTROSE 5%-WATER - 50 ML IVPB SCH ×2 (01:45→10:28)
[2021-11-18] MEDS: SODIUM CHLORIDE 0.45%/POT 20 MEQ/1,000 ML INFUS.BAG IV SCH ×2 (02:45→15:06)
[2021-11-18] MEDS ORDERED: INSULIN (NOVOLOG) ASPART 100 UNITS/ML 10ML VIAL ONE (05:18)
[2021-11-18] MEDS: HEPARIN NA (PORCINE) 5,000 UNITS/ML 1ML VIAL SQ SCH ×3 (05:46→22:46)
[2021-11-18 09:12] LABS: HEMATOCRIT 30.8 % (32.4-45.2); HEMOGLOBIN 9.9 GM/dL (10.7-15.3); MCH 27.4 pg (25.7-33.7); MCHC 32.2 g/dl (32.0-36.0); MEAN CELL VOLUME 85.1 fl (80-96); MEAN PLT VOLUME 9.5 fl (7.5-11.1); PLATELET COUNT 361 10^3/uL (134-434); RBC 3.62 M/mm3 (3.60-5.2); RDW 15.7 % (11.6-15.6)
[2021-11-18 09:39] LABS: ALBUMIN 2.3 g/dl (3.4-5.0); MAGNESIUM 2.5 mg/dL (1.8-2.4)
[2021-11-18 09:42] LABS: CREATININE 1.5 mg/dL (0.55-1.3)
[2021-11-18 09:44] LABS: BILIRUBIN,TOTAL 0.2 mg/dL (0.2-1); TOT PROT 6.1 g/dl (6.4-8.2)
[2021-11-18 09:49] LABS: BLOOD UREA NITROGEN 38.3 mg/dL (7-18)
[2021-11-18 10:28] LABS: ANISOCYTOSIS 1+; MACROCYTOSIS 0; OVALOCYTE 2+; TARGET CELLS 1+
[2021-11-18] MEDS: CLOPIDOGREL BISULFATE 75 MG TABLET (FP) PO SCH (10:28)
[2021-11-18] MEDS: VALPROIC ACID 250 MG CAPSULE PO SCH (10:28)
[2021-11-18] MEDS ORDERED: POTASSIUM PHOSPHATE 30 MM in DEXTROSE 5%-WATER - 500 ML IVPB ONE (12:15)
[2021-11-18] MEDS: AMINO ACIDS 4.25%/D5W 1,000 ML IV SCH (15:07)
[2021-11-18] MEDS: INSULIN (LEVEMIR) 100 UNITS/ML UNITS SQ SCH ×2 (19:30→22:48)
[2021-11-19] MEDS: INSULIN SLIDING SCALE (NOVOLOG) 1 VIAL SQ SCH ×4 (00:09→18:02)
[2021-11-19] MEDS: PIPERACILLIN/TAZOB 2.25 GM 2.25 GM in DEXTROSE 5%-WATER - 50 ML IVPB SCH ×3 (02:40→10:32)
[2021-11-19] MEDS: INSULIN (LEVEMIR) 100 UNITS/ML UNITS SQ SCH ×2 (06:05→21:14)
[2021-11-19] MEDS: HEPARIN NA (PORCINE) 5,000 UNITS/ML 1ML VIAL SQ SCH ×3 (06:07→21:12)
[2021-11-19 09:08] LABS: HEMATOCRIT 31.7 % (32.4-45.2); HEMOGLOBIN 10.2 GM/dL (10.7-15.3); MCH 27.7 pg (25.7-33.7); MCHC 32.3 g/dl (32.0-36.0); MEAN CELL VOLUME 85.6 fl (80-96); MEAN PLT VOLUME 9.8 fl (7.5-11.1); PLATELET COUNT 337 10^3/uL (134-434); RDW 16.2 % (11.6-15.6)
[2021-11-19 09:26] LABS: ALBUMIN 2.3 g/dl (3.4-5.0); CALCIUM 9.4 mg/dL (8.5-10.1)
[2021-11-19 09:30] LABS: PHOSPHOROUS 2.9 mg/dL (2.5-4.9)
[2021-11-19 09:31] LABS: BILIRUBIN,TOTAL 0.3 mg/dL (0.2-1); TOT PROT 6.2 g/dl (6.4-8.2)
[2021-11-19] MEDS ORDERED: DEXTROSE 5%-WATER - 50 ML IVPB ONE ×2 (10:27→17:32)
[2021-11-19] MEDS ORDERED: PIPERACILLIN/TAZOBACTAM 2.25 GM VIAL IVPB ONE (10:27)
[2021-11-19] MEDS: VALPROIC ACID 250 MG CAPSULE PO SCH (10:32)
[2021-11-19] MEDS: CLOPIDOGREL BISULFATE 75 MG TABLET (FP) PO SCH (10:32)
[2021-11-19 11:35] LABS: ANISOCYTOSIS 0; HELMET CELLS 0; HOWELL-JOLLY BODIES 0; MACROCYTOSIS 0; OVALOCYTE 0; ROULEAU 0; SICKELED CELLS 0; TARGET CELLS 0; TEAR DROP CELLS 0; TOXIC GRANULATION 0
[2021-11-19] MEDS ORDERED: DEXTROSE 5%-0.45% SALINE 1,000 ML IV SCH (14:30)
[2021-11-19] MEDS ORDERED: PIPERACILLIN/TAZOBACTAM 3.375 GM VIAL IVPB ONE (17:31)
[2021-11-19] MEDS: PIPERACILLIN/TAZOB 3.375 GM 3.375 GM in DEXTROSE 5%-WATER - 50 ML IVPB SCH (17:53)
[2021-11-19] MEDS: AMINO ACIDS 4.25%/D5W 1,000 ML IV SCH ×2 (18:47→18:52)
[2021-11-19] MEDS ORDERED: INSULIN (NOVOLOG) ASPART 100 UNITS/ML 10ML VIAL ONE (21:09)
[2021-11-20] MEDS ORDERED: DEXTROSE 5%-WATER - 50 ML IVPB ONE ×3 (01:03→16:42)
[2021-11-20] MEDS ORDERED: PIPERACILLIN/TAZOBACTAM 3.375 GM VIAL IVPB ONE ×3 (01:03→16:42)
[2021-11-20] MEDS: PIPERACILLIN/TAZOB 3.375 GM 3.375 GM in DEXTROSE 5%-WATER - 50 ML IVPB SCH ×3 (01:12→17:00)
[2021-11-20] MEDS: INSULIN SLIDING SCALE (NOVOLOG) 1 VIAL SQ SCH ×4 (01:19→16:59)
[2021-11-20] MEDS ORDERED: INSULIN (NOVOLOG) ASPART 100 UNITS/ML 10ML VIAL ONE (06:05)
[2021-11-20] MEDS: HEPARIN NA (PORCINE) 5,000 UNITS/ML 1ML VIAL SQ SCH ×3 (06:17→22:44)
[2021-11-20] MEDS: INSULIN (LEVEMIR) 100 UNITS/ML UNITS SQ SCH ×2 (06:18→22:44)
[2021-11-20 09:02] LABS: HEMATOCRIT 33.8 % (32.4-45.2); MCH 27.7 pg (25.7-33.7); MCHC 32.6 g/dl (32.0-36.0); MEAN PLT VOLUME 9.1 fl (7.5-11.1); PLATELET COUNT 375 10^3/uL (134-434); RBC 3.98 M/mm3 (3.60-5.2); WHITE BLOOD COUNT 10.5 K/mm3 (4.0-10.0)
[2021-11-20 09:18] LABS: CALCIUM 9.1 mg/dL (8.5-10.1)
[2021-11-20 09:19] LABS: ALBUMIN 2.3 g/dl (3.4-5.0); BLOOD UREA NITROGEN 29.4 mg/dL (7-18); MAGNESIUM 1.9 mg/dL (1.8-2.4)
[2021-11-20 09:22] LABS: PHOSPHOROUS 3.2 mg/dL (2.5-4.9)
[2021-11-20 09:23] LABS: BILIRUBIN,TOTAL 0.2 mg/dL (0.2-1)
[2021-11-20 09:24] LABS: TOT PROT 6.2 g/dl (6.4-8.2)
[2021-11-20 10:46] LABS: ANISOCYTOSIS 0; HELMET CELLS 0; HOWELL-JOLLY BODIES 0; MACROCYTOSIS 0; OVALOCYTE 0; ROULEAU 0; SICKELED CELLS 0; TARGET CELLS 0; TEAR DROP CELLS 0; TOXIC GRANULATION 0
[2021-11-20] MEDS: CLOPIDOGREL BISULFATE 75 MG TABLET (FP) PO SCH (11:26)
[2021-11-20] MEDS: VALPROIC ACID 250 MG CAPSULE PO SCH (13:12)
[2021-11-20] MEDS: AMINO ACIDS 4.25%/D5W 1,000 ML IV SCH (17:00)
[2021-11-21] MEDS: INSULIN SLIDING SCALE (NOVOLOG) 1 VIAL SQ SCH ×4 (00:11→18:09)
[2021-11-21] MEDS ORDERED: PIPERACILLIN/TAZOBACTAM 3.375 GM VIAL IVPB ONE ×3 (01:48→18:01)
[2021-11-21] MEDS ORDERED: DEXTROSE 5%-WATER - 50 ML IVPB ONE ×3 (01:49→18:02)
[2021-11-21] MEDS: PIPERACILLIN/TAZOB 3.375 GM 3.375 GM in DEXTROSE 5%-WATER - 50 ML IVPB SCH ×3 (02:05→18:09)
[2021-11-21] MEDS: HEPARIN NA (PORCINE) 5,000 UNITS/ML 1ML VIAL SQ SCH ×2 (05:46→13:12)
[2021-11-21] MEDS: INSULIN (LEVEMIR) 100 UNITS/ML UNITS SQ SCH (06:13)
[2021-11-21 10:25] LABS: BASO % 0.3 % (0-2.0); EOS % 2.5 % (0-4.5); HEMATOCRIT 31.5 % (32.4-45.2); LYMPH % 15.9 % (8-40); MCHC 31.7 g/dl (32.0-36.0); MEAN CELL VOLUME 85.1 fl (80-96); MEAN PLT VOLUME 9.1 fl (7.5-11.1); MONO % 11.2 % (3.8-10.2); NEUT % 70.1 % (42.8-82.8); PLATELET COUNT 376 10^3/uL (134-434); RDW 15.4 % (11.6-15.6); WHITE BLOOD COUNT 11.7 K/mm3 (4.0-10.0)
[2021-11-21 10:46] LABS: ALBUMIN 2.2 g/dl (3.4-5.0); BLOOD UREA NITROGEN 44.6 mg/dL (7-18); CALCIUM 9.2 mg/dL (8.5-10.1)
[2021-11-21 10:49] LABS: CREATININE 1.3 mg/dL (0.55-1.3)
[2021-11-21 10:51] LABS: BILIRUBIN,TOTAL 0.2 mg/dL (0.2-1); TOT PROT 6.1 g/dl (6.4-8.2)
[2021-11-21 10:52] LABS: PHOSPHOROUS 3.5 mg/dL (2.5-4.9)
[2021-11-21 12:05] VITALS: BP 157/74; RESP 18
[2021-11-21] MEDS: VALPROIC ACID 250 MG CAPSULE PO SCH (13:13)
[2021-11-21] MEDS: CLOPIDOGREL BISULFATE 75 MG TABLET (FP) PO SCH (13:14)
[2021-11-21] MEDS: AMINO ACIDS 4.25%/D5W 1,000 ML IV SCH (14:19)
[2021-11-21 15:51] VITALS: PULSE 78; TEMP 98.3
== END 2021-11-21 21:29 | disposition home or self-care (01) | DRG 871 ==
LOC: JER 11:14 → JERBED 14:50 → J8W 11-16 00:36
PROVIDERS: ADMIT Internal Medicine; ATTEND Internal Medicine
DX: A41.89 Other specified sepsis (principal); J69.0 Pneumonitis due to inhalation of food and vomit; U07.1 COVID-19; G82.20 Paraplegia, unspecified; E87.2 Acidosis; N17.9 Acute kidney failure, unspecified; E87.0 Hyperosmolality and hypernatremia; R47.01 Aphasia; I25.10 Atherosclerotic heart disease of native coronary artery without angina pectoris; I10 Essential (primary) hypertension; E78.5 Hyperlipidemia, unspecified; E11.65 Type 2 diabetes mellitus with hyperglycemia; Z86.73 Personal history of transient ischemic attack (TIA), and cerebral infarction without residual deficits; Z85.3 Personal history of malignant neoplasm of breast
CPT/HCPCS: 0241U-QW; 36415; 70450-TC; 71045-TC-FY; 76775-TC; 80053; 81003; 82010; 82436; 82550; 82570; 82728; 82803; 82962; 83605; 83615; 83735; 84100; 84133; 84300; 84484; 85025; 85610; 85730; 86140; 86850; 86900; 86901; 87040; 87086; 93005; 93010; 94761; 99285-25; J1644; J3480

== ENCOUNTER 2022-04-26 04:01 | Inpatient (IN) | payer OTHER ==
[2022-04-26 05:54] LABS: ALBUMIN 3.7 g/dl (3.4-5.0); BLOOD UREA NITROGEN 44.2 mg/dL (7-18); CALCIUM 9.5 mg/dL (8.5-10.1)
[2022-04-26 05:56] LABS: BASO % 0.5 % (0-2.0); EOS % 3.2 % (0-4.5); HEMOGLOBIN 10.3 GM/dL (10.7-15.3); LYMPH % 36.2 % (8-40); MCH 26.6 pg (25.7-33.7); MCHC 31.3 g/dl (32.0-36.0); MEAN CELL VOLUME 85.1 fl (80-96); MEAN PLT VOLUME 9.6 fl (7.5-11.1); MONO % 10.8 % (3.8-10.2); NEUT % 49.3 % (42.8-82.8); PLATELET COUNT 212 10^3/uL (134-434); RBC 3.87 M/mm3 (3.60-5.2); RDW 16.3 % (11.6-15.6); WHITE BLOOD COUNT 5.8 K/mm3 (4.0-10.0)
[2022-04-26 05:57] LABS: CREATININE 2.4 mg/dL (0.55-1.3)
[2022-04-26 06:00] LABS: TOT PROT 7.4 g/dl (6.4-8.2)
[2022-04-26 06:09] LABS: BILIRUBIN,TOTAL 0.2 mg/dL (0.2-1)
[2022-04-26 07:29] LABS: N-TERMINAL BNP 324.3 pg/ml (5-450)
[2022-04-26] MEDS: LACTATED RINGERS SOLUTION 1,000 ML IV SCH ×2 (08:07→13:56)
[2022-04-26] MEDS: INSULIN SLIDING SCALE (NOVOLOG) 1 VIAL SQ SCH ×3 (12:05→22:49)
[2022-04-26] MEDS ORDERED: LOSARTAN POTASSIUM 25 MG TABLET PO ONE (12:15)
[2022-04-26 12:36] VITALS: BMI 24.7
[2022-04-26] MEDS ORDERED: REMDESIVIR 200 MG in SODIUM CHLORIDE 250 ML IVPB ONE (13:30)
[2022-04-26] MEDS: HEPARIN NA (PORCINE) 5,000 UNITS/ML 1ML VIAL SQ SCH ×2 (13:57→22:33)
[2022-04-26] MEDS ORDERED: NIFEdipine 10 MG CAPSULE (FP) PO SCH (17:00)
[2022-04-26] MEDS ORDERED: ATORVASTATIN CA 80 MG TABLET (FP) PO SCH (22:00)
[2022-04-26] MEDS: VALPROATE SODIUM 250 MG/5 ML UNIT DOSE CUP PO SCH (22:33)
[2022-04-27] MEDS: LACTATED RINGERS SOLUTION 1,000 ML IV SCH ×2 (04:17→09:18)
[2022-04-27] MEDS: INSULIN SLIDING SCALE (NOVOLOG) 1 VIAL SQ SCH ×4 (06:17→21:58)
[2022-04-27] MEDS: HEPARIN NA (PORCINE) 5,000 UNITS/ML 1ML VIAL SQ SCH (06:17)
[2022-04-27] MEDS: VALPROATE SODIUM 250 MG/5 ML UNIT DOSE CUP PO SCH (09:16)
[2022-04-27] MEDS: DEXAMETHASONE SOD PHOSPHATE 10 MG/1 ML VIAL IVPUSH SCH (09:17)
[2022-04-27] MEDS ORDERED: NIFEdipine E.R. 30 MG TABLET PO SCH (10:00)
[2022-04-27] MEDS ORDERED: PATIENT'S OWN MEDICATION (NON-FORMULARY) (Valproic Acid [Valproic Acid] 250 MG Capsule) PO SCH (10:00)
[2022-04-27] MEDS: RIVASTIGMINE 4.6 MG/24 HOURS TRANSDERMAL PATCH TD SCH (10:55)
[2022-04-27] MEDS: LOSARTAN POTASSIUM 25 MG TABLET PO SCH (10:56)
[2022-04-27] MEDS: NIFEdipine E.R 60 MG TABLET PO SCH ×2 (10:56→21:58)
[2022-04-27] MEDS: CLOPIDOGREL BISULFATE 75 MG TABLET (FP) PO SCH (10:56)
[2022-04-27] MEDS: DIVALPROEX SODIUM 125 MG TABLET E.C. PO SCH ×2 (11:01→21:35)
[2022-04-27 11:09] LABS: BASO % 0.6 % (0-2.0); EOS % 2.5 % (0-4.5); HEMATOCRIT 34.8 % (32.4-45.2); HEMOGLOBIN 10.8 GM/dL (10.7-15.3); LYMPH % 33.7 % (8-40); MCH 26.5 pg (25.7-33.7); MEAN CELL VOLUME 85.4 fl (80-96); MEAN PLT VOLUME 9.2 fl (7.5-11.1); MONO % 9.1 % (3.8-10.2); NEUT % 54.1 % (42.8-82.8); PLATELET COUNT 222 10^3/uL (134-434); RBC 4.07 M/mm3 (3.60-5.2); RDW 16.2 % (11.6-15.6); WHITE BLOOD COUNT 7.5 K/mm3 (4.0-10.0)
[2022-04-27 11:38] LABS: ALBUMIN 3.4 g/dl (3.4-5.0); BLOOD UREA NITROGEN 40.2 mg/dL (7-18); CALCIUM 9.4 mg/dL (8.5-10.1); MAGNESIUM 2.4 mg/dL (1.8-2.4)
[2022-04-27 11:41] LABS: CREATININE 1.5 mg/dL (0.55-1.3); PHOSPHOROUS 3.6 mg/dL (2.5-4.9)
[2022-04-27 11:43] LABS: BILIRUBIN,TOTAL 0.3 mg/dL (0.2-1); TOT PROT 6.9 g/dl (6.4-8.2)
[2022-04-27] MEDS ORDERED: REMDESIVIR 100 MG in SODIUM CHLORIDE 270 ML IVPB ONE (15:00)
[2022-04-27] MEDS ORDERED: SODIUM CHLORIDE 0.45% 1,000 ML IV SCH (16:00)
[2022-04-27] MEDS ORDERED: QUEtiapine FUMARATE 25 MG TABLET PO SCH (19:00)
[2022-04-27] MEDS: QUEtiapine FUMARATE 25 MG TABLET PO SCH (21:34)
[2022-04-27] MEDS: ATORVASTATIN CA 80 MG TABLET (FP) PO SCH (21:35)
[2022-04-27] MEDS: INSULIN (LEVEMIR) 100 UNITS/ML UNITS SQ SCH (22:33)
[2022-04-28] MEDS: INSULIN SLIDING SCALE (NOVOLOG) 1 VIAL SQ SCH ×4 (06:20→23:04)
[2022-04-28] MEDS: INSULIN (LEVEMIR) 100 UNITS/ML UNITS SQ SCH ×2 (06:47→23:02)
[2022-04-28] MEDS: LOSARTAN POTASSIUM 25 MG TABLET PO SCH (10:44)
[2022-04-28] MEDS: CLOPIDOGREL BISULFATE 75 MG TABLET (FP) PO SCH (10:44)
[2022-04-28] MEDS: DIVALPROEX SODIUM 125 MG TABLET E.C. PO SCH ×2 (10:44→22:56)
[2022-04-28] MEDS: NIFEdipine E.R 60 MG TABLET PO SCH ×2 (10:44→22:54)
[2022-04-28] MEDS: DEXAMETHASONE SOD PHOSPHATE 10 MG/1 ML VIAL IVPUSH SCH (10:45)
[2022-04-28] MEDS: RIVASTIGMINE 4.6 MG/24 HOURS TRANSDERMAL PATCH TD SCH (10:45)
[2022-04-28 10:55] LABS: HEMATOCRIT 37.5 % (32.4-45.2); HEMOGLOBIN 11.7 GM/dL (10.7-15.3); MCH 26.5 pg (25.7-33.7); MCHC 31.3 g/dl (32.0-36.0); MEAN CELL VOLUME 84.7 fl (80-96); PLATELET COUNT 219 10^3/uL (134-434); RBC 4.42 M/mm3 (3.60-5.2); RDW 16.3 % (11.6-15.6); WHITE BLOOD COUNT 10.2 K/mm3 (4.0-10.0)
[2022-04-28 11:03] LABS: CALCIUM 9.8 mg/dL (8.5-10.1)
[2022-04-28 11:04] LABS: BLOOD UREA NITROGEN 29.8 mg/dL (7-18); MAGNESIUM 2.4 mg/dL (1.8-2.4)
[2022-04-28 11:07] LABS: CREATININE 1.2 mg/dL (0.55-1.3); PHOSPHOROUS 3.6 mg/dL (2.5-4.9)
[2022-04-28] MEDS ORDERED: REMDESIVIR 100 MG in SODIUM CHLORIDE 250 ML IVPB SCH (15:00)
[2022-04-28] MEDS ORDERED: VALPROATE SODIUM 250 MG/5 ML UNIT DOSE CUP PO SCH (19:00)
[2022-04-28] MEDS: ATORVASTATIN CA 80 MG TABLET (FP) PO SCH (22:54)
[2022-04-28] MEDS: QUEtiapine FUMARATE 25 MG TABLET PO SCH (22:55)
[2022-04-29] MEDS: INSULIN SLIDING SCALE (NOVOLOG) 1 VIAL SQ SCH ×3 (06:43→17:44)
[2022-04-29] MEDS: INSULIN (LEVEMIR) 100 UNITS/ML UNITS SQ SCH (07:59)
[2022-04-29 09:47] LABS: HEMATOCRIT 35.7 % (32.4-45.2); HEMOGLOBIN 11.3 GM/dL (10.7-15.3); MCH 26.7 pg (25.7-33.7); MCHC 31.7 g/dl (32.0-36.0); MEAN CELL VOLUME 84.3 fl (80-96); MEAN PLT VOLUME 9.3 fl (7.5-11.1); PLATELET COUNT 208 10^3/uL (134-434); RBC 4.23 M/mm3 (3.60-5.2); RDW 16.5 % (11.6-15.6); WHITE BLOOD COUNT 6.2 K/mm3 (4.0-10.0)
[2022-04-29 10:03] LABS: CALCIUM 9.8 mg/dL (8.5-10.1)
[2022-04-29 10:05] LABS: MAGNESIUM 2.4 mg/dL (1.8-2.4)
[2022-04-29 10:07] LABS: PHOSPHOROUS 3.9 mg/dL (2.5-4.9)
[2022-04-29] MEDS: LOSARTAN POTASSIUM 25 MG TABLET PO SCH (11:00)
[2022-04-29] MEDS: DEXAMETHASONE SOD PHOSPHATE 10 MG/1 ML VIAL IVPUSH SCH (11:00)
[2022-04-29] MEDS: CLOPIDOGREL BISULFATE 75 MG TABLET (FP) PO SCH (11:00)
[2022-04-29] MEDS: NIFEdipine E.R 60 MG TABLET PO SCH (11:00)
[2022-04-29] MEDS: DIVALPROEX SODIUM 125 MG TABLET E.C. PO SCH (11:04)
[2022-04-29] MEDS: RIVASTIGMINE 4.6 MG/24 HOURS TRANSDERMAL PATCH TD SCH (11:04)
[2022-04-29 11:41] VITALS: BP 145/69; PULSE 89; RESP 22; TEMP 97.9
[2022-04-29] MEDS ORDERED: REMDESIVIR 100 MG in SODIUM CHLORIDE 250 ML IVPB SCH (13:00)
== END 2022-04-29 18:14 | disposition home health service (06) | DRG 178 ==
LOC: JER 04:01 → JERBED 07:12 → UNDOADMIN 07:12 → J5S 10:19
PROVIDERS: ADMIT Internal Medicine; ATTEND Internal Medicine
PROC: XW033E5 Introduction of Remdesivir Anti-infective into Peripheral Vein, Percutaneous Approach, New Technology Group 5 (ICD-10-PCS; principal; 2022-04-26)
DX: U07.1 COVID-19 (principal); N17.9 Acute kidney failure, unspecified; F03.90 Unspecified dementia, unspecified severity, without behavioral disturbance, psychotic disturbance, mood disturbance, and anxiety; I25.10 Atherosclerotic heart disease of native coronary artery without angina pectoris; I69.320 Aphasia following cerebral infarction; Z85.3 Personal history of malignant neoplasm of breast; Z79.4 Long term (current) use of insulin; E11.65 Type 2 diabetes mellitus with hyperglycemia; E78.5 Hyperlipidemia, unspecified; I10 Essential (primary) hypertension
CPT/HCPCS: 0241U-QW; 36415; 71045-TC-FY; 76775-TC; 80048; 80053; 82962; 83735; 83880; 84100; 84484; 85025; 85027; 93005; 93010; 99285-25; C9399; J1100; J1644

== ENCOUNTER 2023-04-02 14:31 | Emergency (ER) | payer OTHER ==
[2023-04-02 15:12] VITALS: BP 122/67; PULSE 73; RESP 18; TEMP 98.3; BMI 27.4
[2023-04-02 16:36] LABS: BASO % 0.7 % (0-2.0); HEMATOCRIT 37.2 % (32.4-45.2); LYMPH % 34.4 % (8-40); MCH 27.7 pg (25.7-33.7); MCHC 32.2 g/dl (32.0-36.0); MEAN PLT VOLUME 9.3 fl (7.5-11.1); MONO % 7.9 % (3.8-10.2); PLATELET COUNT 203 10^3/uL (134-434); RBC 4.32 M/mm3 (3.60-5.2); RDW 15.5 % (11.6-15.6); WHITE BLOOD COUNT 7.7 K/mm3 (4.0-10.0)
[2023-04-02 17:00] LABS: POTASSIUM 4.1 mmol/L (3.5-5.1)
[2023-04-02 17:04] LABS: ALBUMIN 3.7 g/dl (3.4-5.0); CALCIUM 9.7 mg/dL (8.5-10.1)
[2023-04-02 17:07] LABS: CREATININE 1.4 mg/dL (0.55-1.3)
[2023-04-02 17:09] LABS: BILIRUBIN,TOTAL 0.7 mg/dL (0.2-1); TOT PROT 7.7 g/dl (6.4-8.2)
[2023-04-02 17:25] LABS: EPI CELLS 5 /uL (0-25.1); HYALINE CASTS 1 /uL (0-3.1); PH,URINE 6.5 (5.0-8.0); URINE APPEARANCE CLEAR; URINE BACTERIA 43 /uL (0-1359); URINE BILIRUBIN NEGATIVE (NEGATIVE); URINE COLOR YELLOW; URINE GLUCOSE (UA) NEGATIVE (NEGATIVE); URINE KETONE NEGATIVE (NEGATIVE); URINE LEUK ESTERASE TRACE (NEGATIVE); URINE NITRITE NEGATIVE (NEGATIVE); URINE PROTEIN NEGATIVE (NEGATIVE); URINE RBC 12 /uL (0-23.9); URINE UROBILINOGEN 0.2 mg/dL (0.2-1.0); URINE WBC 15 /uL (0-25.8)
== END 2023-04-02 17:42 | disposition home or self-care (01) ==
LOC: JER 14:31
DX: G40.909 Epilepsy, unspecified, not intractable, without status epilepticus (principal)
CPT/HCPCS: 36415; 80053; 81003; 85025; 87086; 93005; 93010; 99284-25

== ENCOUNTER 2023-04-24 23:54 | Emergency (ER) | payer OTHER ==
[2023-04-25 00:04] VITALS: TEMP 98; BMI 28.3
[2023-04-25 02:17] LABS: EOS % 3.6 % (0-4.5); HEMATOCRIT 37.6 % (32.4-45.2); MCH 27.2 pg (25.7-33.7); MCHC 31.9 g/dl (32.0-36.0); MEAN CELL VOLUME 85.2 fl (80-96); MEAN PLT VOLUME 8.8 fl (7.5-11.1); MONO % 8.1 % (3.8-10.2); NEUT % 52.3 % (42.8-82.8); PLATELET COUNT 230 10^3/uL (134-434); RBC 4.41 M/mm3 (3.60-5.2); RDW 15.4 % (11.6-15.6); WHITE BLOOD COUNT 7.7 K/mm3 (4.0-10.0)
[2023-04-25 02:41] LABS: ALBUMIN 3.8 g/dl (3.4-5.0); CALCIUM 9.8 mg/dL (8.5-10.1)
[2023-04-25 02:45] LABS: CREATININE 1.1 mg/dL (0.55-1.3)
[2023-04-25 02:47] LABS: BILIRUBIN,TOTAL 0.1 mg/dL (0.2-1)
[2023-04-25 04:35] LABS: PH,URINE 7.5 (5.0-8.0); URINE APPEARANCE CLEAR; URINE BILIRUBIN NEGATIVE (NEGATIVE); URINE COLOR YELLOW; URINE GLUCOSE (UA) NEGATIVE (NEGATIVE); URINE KETONE NEGATIVE (NEGATIVE); URINE LEUK ESTERASE NEGATIVE (NEGATIVE); URINE NITRITE NEGATIVE (NEGATIVE); URINE PROTEIN NEGATIVE (NEGATIVE); URINE UROBILINOGEN 0.2 mg/dL (0.2-1.0)
[2023-04-25 06:32] VITALS: BP 177/86; PULSE 87; RESP 15
[2023-04-25 07:20] LABS: LACTIC ACID 2.7 mmol/L (0.4-2.0)
[2023-04-25] MEDS ORDERED: MELATONIN 5 MG TABLETS PO ONE (07:22)
[2023-04-25] MEDS ORDERED: MELATONIN 5 MG TABLETS ONE (07:26)
[2023-04-25] MEDS ORDERED: SODIUM CHLORIDE 1,000 ML IV STA (07:55)
== END 2023-04-25 08:25 | disposition left against medical advice (07) ==
LOC: JER 23:54
DX: R10.84 Generalized abdominal pain (principal)
CPT/HCPCS: 36415; 74177-TC; 80053; 80164; 81003; 83605; 84484; 85025; 87086; 93005; 93010; 99285-25

== ENCOUNTER → 2023-08-02 | Day surgery (SDC) | payer OTHER | END | disposition home or self-care (01) | LOC: FMAMMOTONE 12:59 | PROVIDERS: ATTEND Internal Medicine | PROC: 0HBU3ZX Excision of Left Breast, Percutaneous Approach, Diagnostic (ICD-10-PCS; principal; 2023-08-02) | DX: C50.912 Malignant neoplasm of unspecified site of left female breast (principal); Z90.12 Acquired absence of left breast and nipple; R92.1 Mammographic calcification found on diagnostic imaging of breast | CPT/HCPCS: 19081; 76098-TC-FY; 87899; 88305-TC; 88341-TC; 88342-TC; A4648 ==